=== PATIENT | male | born 1945 | race Caucasian/White ===

== ENCOUNTER 2024-09-07 14:12 | Outpatient (CLI) | payer MEDICARE, SELFPAY ==
--- NOTE | ~2024-09-07 | MR_ITS ---
EXAMINATION: MR elbow LT wo con DATE: 09/07/2024 14:45 INDICATION: Left elbow pain TECHNIQUE: Magnetic resonance imaging (MRI) of the left elbow was performed without intravenous contr ast. Sequences included coronal, axial, and sagittal PD-weighted FS FSE and coronal, axial, and sagit angie PD-weighted FSE. COMPARISON: None FINDINGS: Osseous/other: Normal alignment. Normal marrow signal with no marrow edema, fracture, osteochondral lesion or abnor mal marrow replacing process. Mild osteoarthritis with mild with nonuniform partial-thickness cartila ge loss at the radiocapitellar articulation of the left elbow. Tendons: Triceps, biceps brachii and brachialis tendons are normal. Common flexor tendon wad is normal. Mild tendinopathy without tear at the lateral epicondylar origin of the common extensor tendon wad. Ligaments: The medial and lateral collateral ligament complexes are normal. Cubital tunnel: Cubital tunnel is unremarkable with normal signal and caliber of the ulnar nerve. Fluid: Physiologic amount of fluid the elbow joint. IMPRESSION: 1. Mild osteoarthritis at the left elbow. 2. Mild tendinopathy without discrete tear at the lateral epicondylar origin of the common extensor t endon wad. Reviewed, dictated and finalized at location A. [facility] IMPRESSION: 1. Mild osteoarthritis at the left elbow. 2. Mild tendinopathy without discrete tear at the lateral epicondylar origin of the common extensor tendon wad.
== END 2024-09-07 14:13 | disposition home or self-care (01) ==
PROVIDERS: PCP Internal Medicine; Visit Provider Nurse Practitioner Family
DX: M19.022 Primary osteoarthritis, left elbow (principal)
CPT/HCPCS: 73221

== ENCOUNTER 2025-05-12 09:49 | Outpatient (CLI) | payer MEDICARE, SELFPAY ==
--- NOTE | ~2025-05-12 | XR_ITS ---
EXAMINATION: XR ankle RT min 3V, 05/12/2025 10:02 CDT HISTORY: pain in rt ankle COMPARISON: No comparisons available. Findings: No acute fracture or malalignment. No significant degenerative changes. Soft tissues unremarkable. Impression: No acute fracture or malalignment. Reviewed, dictated and finalized at location P. Impression: No acute fracture or malalignment.
== END 2025-05-12 09:50 | disposition home or self-care (01) ==
PROVIDERS: PCP Internal Medicine; Visit Provider Internal Medicine
DX: M25.571 Pain in right ankle and joints of right foot (principal); G89.29 Other chronic pain
CPT/HCPCS: 73610

== ENCOUNTER 2025-06-16 13:27 | Outpatient (CLI) | payer MEDICARE, SELFPAY ==
--- NOTE | ~2025-06-16 | US_ITS ---
EXAM/PROCEDURE: US arterial ankle brachial ind HISTORY: chronic pain right ankle COMPARISON: None available. TECHNIQUE: ZOILA FINDINGS: Right and left brachial pressure readings are 146 and 160 Right and left posterior tibial pressure readings are 190 and 186 Right and left dorsalis pressure readings are 178 and 184 Right and left great toe pressure readings are 170 and 169 Right and left ABIs are 1.19 and 1.16 TBI's are 1.06 on both sides Plethysmography appears grossly normal. IMPRESSION: Both ABIs greater than 1.0. IMPRESSION: No acute findings. Reviewed, dictated and finalized at location A. GRADER IMPRESSION: Both ABIs greater than 1.0. IMPRESSION: No acute findings.
--- OUTSIDE RECORDS SUMMARY | 2025-06-16 14:06 | XMS_ITS | Data Portability ---
Author Organization [place] - [facility], [facility] Address [address] [facility] [address] [place] [address] Assessment Encounter Date Assessment Date Assessment LastModified by Organization Details LastModified Time 05/31/2025 05/31/2025 Patient presente d to office today for their Medicare Annual Wellness Visit. Education was provided on healthy nutrition, including a diet rich in fruits and vegetables, minimizing simple carbohydrates, salt, and saturated fats. Encouraged regular cardiovascular exercise such as walking at least 30 minutes daily, 5 times per week. Emphasized preventive health measures and educated pt on fall prevention and community-based lifestyle interventions to help reduce health risks and promote healthy living. [email or web address] Not available 05/31/2025 15:54:29 Plan of Treatment Reminders Order Date Submit Date Provider Last Modified By Organization Details Last Modified Time Details Appointments Follow Up 15 2025 09:15A M Pastor Rossi MD Not available Not available Not available Lab uric acid, serum or plasma 2024 025 TATE Choudhary, [address], [place], [address], 05/13/2025 12:08:17 PSA, total, serum or plasma 2024 025 ATTE Choudhary, [address], [place], [address], 05/13/2025 12:08:17 HbA1c (hemoglob in A1c), blood 2024 025 TATE Choudhary, [address], [place], [address], 05/13/2025 12:08:16 lipid panel, serum 2024 TATEDANIEL Ramos, [address], [place], [address], 05/13/2025 12:08:15 PTH (parathyr oid hormone), intact, serum or plasma 2024 TATE Choudhary, [address], [place], [address], 05/13/2025 12:08:18 microalbu min/creat inine, mass ratio, urine 2024 TATE Choudhary, [address], [place], [address], 05/13/2025 12:08:16 CBC w/ auto diff 2024 TATEDANIEL Ramos, [address], [place], [address], 05/13/2025 12:08:14 renal function panel, serum 2024 TATEDANIEL Ramos, [address], [place], [address], 05/13/2025 12:08:15 TSH, ultra-sen sitive, serum 2024 TATEDANIEL Ramos, [address], [place], [address], 05/13/2025 12:08:17 CMP, serum or plasma 2024 TATE Choudhary, [address], [place], [address], 05/13/2025 12:08:14 TSH, ultra-sen sitive, serum 2024 025 [facility], [address], [place], [address], 03/16/2025 04:03:56 HbA1c (hemoglob in A1c), blood 2024 025 TATE Choudhary, [address], [place], [address], 03/16/2025 04:03:56 CMP, serum or plasma 2024 025 TATEDANIEL Choudhary, [address], [place], [address], 03/16/2025 04:03:55 microalbu min/creat inine, mass ratio, urine 2024 025 TATE Choudhary, [address], [place], [address], 03/16/2025 04:03:56 PTH (parathyr oid hormone), intact, serum or plasma 2024 025 TATE Choudhary, [address], [place], [address], 03/16/2025 04:03:56 PSA, total, serum or plasma 2024 025 TATE Choudhary, [address], [place], [address], 03/16/2025 04:03:56 CMP, serum or plasma 2024 025 TATE Choudhary, [address], [place], [address], 03/16/2025 04:03:55 CBC w/ auto diff 2024 025 TATE Choudhary, [address], [place], [address], 03/16/2025 04:03:55 lipid panel, serum 2024 025 TATE Labmary kate, [address], [place], [address], 03/16/2025 04:03:55 urinalysi s, complete 2024 025 TATEDANIEL Choudhary, [address], [place], [address], 03/16/2025 04:03:55 lipid panel, serum 2024 025 TATE Labmary kate, [address], [place], [address], 03/16/2025 04:03:55 HbA1c (hemoglob in A1c), blood 2023 024 TATE Choudhary, [address], [place], [address], 08/31/2024 08:11:56 CMP, serum or plasma 2023 024 TATE Choudhary, [address], [place], [address], 08/31/2024 08:11:54 PSA, serum or plasma 2023 024 TATE Choudhary, [address], [place], [address], 08/31/2024 08:11:56 uric acid, serum or plasma 2023 024 TATE Choudhary, [address], [place], [address], 08/31/2024 08:11:57 CBC w/ auto diff 2023 024 TATE Choudhary, [address], [place], [address], 08/31/2024 08:11:53 microalbu min/creat inine, mass ratio, urine 2023 024 [facility], [address], [place], [address], 08/31/2024 08:11:55 TSH + free T4, serum 2023 024 [facility], [address], [place], [address], 08/31/2024 08:11:52 urinalysi s, complete 2023 024 [facility], [address], [place], [address], 08/31/2024 08:11:54 lipid panel, serum - fasting 2023 024 [facility], [address], [place], [address], 08/31/2024 08:11:55 Referral None recorded. Procedures None recorded. Surgeries None recorded. Imaging US, duplex, arterial, lower extremity , complete 2024 025 [facility] ([facility]), [address], [place], [address], 06/14/2025 04:02:55 XR, ankle, 3 or more view 2024 025 TATE Not available 05/25/2025 04:06:23 ankle brachial index 2024 025 [facility] ([facility]), [address], [place], [address], 05/18/2025 04:03:53 US, duplex, venous, lower extremity [address] (Cardiology [facility] Em[facility]), [address], [place], [address], 05/23/2025 12:50:06 Medication Orders Medrol (Migel) 4 mg tablets in a dose pack 2024 [facility] #[id number], [address], [place], [place], [id number], 05/31/2025 10:33:22 azithromy sandie 250 mg tablet 2024 [facility] #[id number], [address], [place], [place], [phone], 05/31/2025 10:33:23 albuterol sulfate HFA 90 mcg/actua tion aerosol inhaler 2024 [facility][id number], [address], [place], [place], [phone], 05/31/2025 10:33:22 Mucinex 1,200 mg tablet, extended release 2024 [facility] #[id number], [address], [place], [place], [phone], 06/14/2025 05:01:56 doxycycli ne hyclate 100 mg capsule 2024 [facility] #[id number], [address], [place], [place], [id number], 05/25/2025 05:01:31 fluticaso ne propionat e 50 mcg/actua tion nasal spray,ansley pension 2024 [facility] #[id number], [address], [place], [place], [phone], 05/11/2025 14:53:50 Patient TargetsNo targets recorded. Patient Instructions Encounter Date Encounter Id Patient Instructions Last Modified By Organization Details Last Modified Time 03/03/2024 [id number] When You Want to Lose Weight: Care Instructions [email or web address] Not available 03/03/2024 10:21:54 back care and preventing injuries: care instructions [email or web address] Not available 03/03/2024 10:21:54 getting back to normal after low back pain: care instructions [email or web address] Not available 03/03/2024 10:21:54 learning about relief for back pain [email or web address] Not available 03/03/2024 10:21:54 high cholesterol : care instructions [email or web address] Not available 03/03/2024 10:21:55 09/01/2024 [id number] When You Want to Lose Weight: Care Instructions [email or web address] Not available 09/01/2024 10:17:04 back care and preventing injuries: care instructions [email or web address] Not available 09/01/2024 10:17:04 getting back to normal after low back pain: care instructions [email or web address] Not available 09/01/2024 10:17:04 learning about relief for back pain [email or web address] Not available 09/01/2024 10:17:04 high cholesterol : care instructions Not available 09/01/2024 10:17:04 I spent a total of _32 minutes (excluding separately reportable procedure time ) in care of this patient. [email or web address] Not available 09/01/2024 10:12:48 03/09/2025 [id number] When You Want to Lose Weight: Care Instructions [email or web address] Not available 03/09/2025 10:51:49 back care and preventing injuries: care instructions [email or web address] Not available 03/09/2025 10:51:49 getting back to normal after low back pain: care instructions [email or web address] Not available 03/09/2025 10:51:48 learning about relief for back pain [email or web address] Not available 03/09/2025 10:51:48 high cholesterol : care instructions [email or web address] Not available 03/09/2025 10:51:48 I spent a total of __32____ minutes (excluding separately reportable procedure time ) in care of this patient. [email or web address] Not available 03/09/2025 18:24:43 05/11/2025 [id number] back care and preventing injuries: care instructions [email or web address] Not available 05/11/2025 14:53:41 getting back to normal after low back pain: care instructions [email or web address] Not available 05/11/2025 14:53:41 learning about relief for back pain [email or web address] Not available 05/11/2025 14:53:40 high cholesterol : care instructions [email or web address] Not available 05/11/2025 14:53:41 When You Want to Lose Weight: Care Instructions [email or web address] Not available 05/11/2025 14:53:41 I spent a total of _36 minutes (excluding separately reportable procedure time ) in care of this patient. [email or web address] Not available 05/11/2025 18:19:01 05/31/2025 [id number] Peripheral Arterial Disease (PAD): Care Instructions [email or web address] Not available 05/31/2025 10:33:15 (ZOILA) ankle brachial index* TATE Not available 06/07/2025 04:05:09 When You Want to Lose Weight: Care Instructions [email or web address] Not available 05/31/2025 10:33:15 advance care planning: care instructions [email or web address] Not available 05/31/2025 10:33:14 back care and preventing injuries: care instructions [email or web address] Not available 05/31/2025 10:33:15 getting back to normal after low back pain: care instructions [email or web address] Not available 05/31/2025 10:33:15 learning about relief for back pain [email or web address] Not available 05/31/2025 10:33:15 high cholesterol : care instructions [email or web address] Not available 05/31/2025 10:33:14 I spent a total of _35 minutes (excluding separately reportable procedure time ) in care of this patient. Not available 05/31/2025 10:30:20 Reason for Referral None Reported. Results Created Date Observation Date Name Description Value Unit Range Abnormal Flag Note LastModifiedBy Organization Detail LastModifiedTime 02/27/20 24 02/27/2024 BASIC METAB OLIC PANEL (8) interpretati on: COMMEN T GFR estim ate at the follo wing level for >or=3 month s is class ified as follo ws: GFR WITH KIDNE Y DAMAG E WITHO UT KIDNE Y DAMAG E >or=9 0 Stage 1 Kendra l 60-89 Stage 2 Decr eased GFR 30-59 Stage 3 Stage 3 15-29 Stage 4 Stage 4 <15 (or dialy sis) Stage 5 Stage 5 Estim ated GFR will over estim ate true GFR if serum creat inine is risin g as in acute renal failu re and will under estim ate true GFR if serum creat inine is decli dylon as in resol ving acute renal failu re. Addit ional infor guido mendenhall may be found at [email or web address] org. Not Available [facility] ([facility]) [address] [place], [address], 02/28/2024 08:11:25 02/27/20 24 02/28/2024 BASIC METAB OLIC PANEL (8) glucose 135 mg/dL 70-99 above high normal Not Available [facility] ([facility]) [address] [place], [address], 02/28/2024 08:11:25 02/27/20 24 02/28/2024 BASIC METAB OLIC PANEL (8) BUN 16 mg/dL 8-27 normal Not Available [facility] ([facility]) [address] [place], [address], 02/28/2024 08:11:25 02/27/20 24 02/28/2024 BASIC METAB OLIC PANEL (8) creatinine 1.77 mg/dL 0.76-1 .27 above high normal Not Available [facility] ([facility]) [address] [place], [address], 02/28/2024 08:11:25 02/27/20 24 02/28/2024 BASIC METAB OLIC PANEL (8) eGFR 39 mL/mi n/1.7 3 >59 below low normal Not Available [facility] ([facility]) [address] [place], [address], 02/28/2024 08:11:25 02/27/20 24 02/28/2024 BASIC METAB OLIC PANEL (8) BUN/creatini ne ratio 9 10-24 below low normal Not Available [facility] ([facility]) [address] [place], [address], 02/28/2024 08:11:25 02/27/20 24 02/28/2024 BASIC METAB OLIC PANEL (8) sodium 144 mmol/ L 134-14 4 normal Not Available [facility] ([facility]) [address] [place], [address], 02/28/2024 08:11:25 02/27/20 24 02/28/2024 BASIC METAB OLIC PANEL (8) potassium 4.3 mmol/ L 3.5-5. 2 normal Not Available [facility] ([facility]) [address] [place], [address], 02/28/2024 08:11:25 02/27/20 24 02/28/2024 BASIC METAB OLIC PANEL (8) chloride 107 mmol/ L 96-106 above high normal Not Available [facility] ([facility]) [address] [place], [address], 02/28/2024 08:11:25 02/27/20 24 02/28/2024 BASIC METAB OLIC PANEL (8) carbon dioxide, total 23 mmol/ L 20-29 normal Not Available [facility] ([facility]) [address] [place], [address], 02/28/2024 08:11:25 02/27/20 24 02/28/2024 BASIC METAB OLIC PANEL (8) calcium 9.1 mg/dL 8.6-10 .2 normal Not Available [facility] ([facility]) [address] [place], [address], 02/28/2024 08:11:25 08/30/19 25 08/31/2024 TSH+F REE T4 TSH 2.610 uIU/m L 0.450- 4.500 normal Not Available [facility] ([facility]) [address] [place], [address], 08/31/2024 08:11:52 08/30/1908/31/2024 TSH+F REE T4 T4,free(dire ct) 1.08 NG/dL 0.82-1 .77 normal Not Available [facility] ([facility]) [address] [place], [address], 08/31/2024 08:11:52 08/30/1908/31/2024 CBC WITH DIFFE RENTI AL/PL ATELE T WBC 7.9 x10e3 /uL 3.4-10 .8 normal Not Available [facility] ([facility]) [address] [place], [address], 08/31/2024 08:11:53 08/30/1908/31/2024 CBC WITH DIFFE RENTI AL/PL ATELE T RBC 5.19 x10e6 /uL 4.14-5 .80 normal Not Available [facility] ([facility]) [address] [place], [address], 08/31/2024 08:11:53 08/30/1908/31/2024 CBC WITH DIFFE RENTI AL/PL ATELE T hemoglobin 15.8 g/dL 13.0-1 7.7 normal Not Available [facility] ([facility]) [address] [place], [address], 08/31/2024 08:11:53 08/30/1908/31/2024 CBC WITH DIFFE RENTI AL/PL ATELE T hematocrit 46.9 % 37.5-5 1.0 normal Not Available [facility] ([facility]) [address] [place], [address], 08/31/2024 08:11:53 08/30/1908/31/2024 CBC WITH DIFFE RENTI AL/PL ATELE T MCV 90 fL 79-97 normal Not Available [facility] ([facility]) [address] [place], [address], 08/31/2024 08:11:53 08/30/19 25 08/31/2024 CBC WITH DIFFE RENTI AL/PL ATELE T MCH 30.4 pg 26.6-3 3.0 normal Not Available [facility] ([facility]) [address] [place], [address], 08/31/2024 08:11:53 08/30/19 25 08/31/2024 CBC WITH DIFFE RENTI AL/PL ATELE T MCHC 33.7 g/dL 31.5-3 5.7 normal Not Available [facility] ([facility]) [address] [place], [address], 08/31/2024 08:11:53 08/30/19 25 08/31/2024 CBC WITH DIFFE RENTI AL/PL ATELE T RDW 12.8 % 11.6-1 5.4 Not Available [facility] ([facility]) [address] [place], [address], 08/31/2024 08:11:53 08/30/19 25 08/31/2024 CBC WITH DIFFE RENTI AL/PL ATELE T platelets 188 x10e3 /uL 150-45 0 normal Not Available [facility] ([facility]) [address] [place], [address], 08/31/2024 08:11:53 08/30/19 25 08/31/2024 CBC WITH DIFFE RENTI AL/PL ATELE T neutrophils 66 % not estab. normal Not Available [facility] ([facility]) [address] [place], [address], 08/31/2024 08:11:53 08/30/19 25 08/31/2024 CBC WITH DIFFE RENTI AL/PL ATELE T lymphs 24 % not estab. normal Not Available [facility] ([facility]) [address] [facility], [place], [address], 08/31/2024 08:11:53 08/30/19 25 08/31/2024 CBC WITH DIFFE RENTI AL/PL ATELE T monocytes 6 % not estab. normal Not Available [facility] ([facility]) [address] [facility], [place], [address], 08/31/2024 08:11:53 08/30/19 25 08/31/2024 CBC WITH DIFFE RENTI AL/PL ATELE T eos 3 % not estab. normal Not Available [facility] ([facility]) [address] [facility], [place], [address], 08/31/2024 08:11:53 08/30/19 25 08/31/2024 CBC WITH DIFFE RENTI AL/PL ATELE T basos 1 % not estab. normal Not Available [facility] ([facility]) [address] [facility], [place], [address], 08/31/2024 08:11:53 08/30/19 25 08/31/2024 CBC WITH DIFFE RENTI AL/PL ATELE T immature cells TURBINE INSPECTOR Not Available [facility] ([facility]) [address] [facility], [place], [address], 08/31/2024 08:11:53 08/30/19 25 08/31/2024 CBC WITH DIFFE RENTI AL/PL ATELE T neutrophils (absolute) 5.3 x10e3 /uL 1.4-7. 0 normal Not Available [facility] ([facility]) [address] [facility], [place], [address], 08/31/2024 08:11:53 08/30/19 25 08/31/2024 CBC WITH DIFFE RENTI AL/PL ATELE T lymphs (absolute) 1.9 x10e3 /uL 0.7-3. 1 normal Not Available [facility] ([facility]) [address] [facility], [place], [address], 08/31/2024 08:11:53 08/30/19 25 08/31/2024 CBC WITH DIFFE RENTI AL/PL ATELE T monocytes(ab solute) 0.4 x10e3 /uL 0.1-0. 9 normal Not Available [facility] ([facility]) [address] [facility], [place], [address], 08/31/2024 08:11:53 08/30/19 25 08/31/2024 CBC WITH DIFFE RENTI AL/PL ATELE T eos (absolute) 0.2 x10e3 /uL 0.0-0. 4 normal Not Available [facility] ([facility]) [address] [facility], [place], [address], 08/31/2024 08:11:53 08/30/19 25 08/31/2024 CBC WITH DIFFE RENTI AL/PL ATELE T baso (absolute) 0.1 x10e3 /uL 0.0-0. 2 normal Not Available [facility] ([facility]) [address] [facility], [place], [address], 08/31/2024 08:11:53 08/30/19 25 08/31/2024 CBC WITH DIFFE RENTI AL/PL ATELE T immature granulocytes 0 % not estab. Not Available [facility] ([facility]) [address] [place], [address], 08/31/2024 08:11:53 08/30/19 25 08/31/2024 CBC WITH DIFFE RENTI AL/PL ATELE T immature grans (abs) 0.0 x10e3 /uL 0.0-0. 1 Not Available [facility] ([facility]) [address] [facility], [place], [address], 08/31/2024 08:11:53 08/30/19 25 08/31/2024 CBC WITH DIFFE RENTI AL/PL ATELE T NRBC TURBINE INSPECTOR Not Available [facility] ([facility]) [address] [place], [address], 08/31/2024 08:11:53 08/30/19 25 08/31/2024 CBC WITH DIFFE RENTI AL/PL ATELE T hematology comments: TURBINE INSPECTOR Not Available [facility] ([facility]) [address] [facility] [place], [address], 08/31/2024 08:11:53 08/30/19 25 08/31/2024 COMP. METAB OLIC PANEL (14) glucose 114 mg/dL 70-99 above high normal Not Available [facility] ([facility]) [address] [place], [address], 08/31/2024 08:11:54 08/30/19 25 08/31/2024 COMP. METAB OLIC PANEL (14) BUN 17 mg/dL 8-27 normal Not Available [facility] ([facility]) [address] [place], [address], 08/31/2024 08:11:54 08/30/19 25 08/31/2024 COMP. METAB OLIC PANEL (14) creatinine 1.75 mg/dL 0.76-1 .27 above high normal Not Available [facility] ([facility]) [address] [place], [address], 08/31/2024 08:11:54 08/30/19 25 08/31/2024 COMP. METAB OLIC PANEL (14) eGFR 39 mL/mi n/1.7 3 >59 below low normal Not Available [facility] ([facility]) [address] [place], [address], 08/31/2024 08:11:54 08/30/19 25 08/31/2024 COMP. METAB OLIC PANEL (14) BUN/creatini ne ratio 10 10-24 normal Not Available [facility] ([facility]) [address] [place] [place], [address], 08/31/2024 08:11:54 08/30/19 25 08/31/2024 COMP. METAB OLIC PANEL (14) sodium 145 mmol/ L 134-14 4 above high normal Not Available [facility] ([facility]) [address] [place], [address], 08/31/2024 08:11:54 08/30/19 25 08/31/2024 COMP. METAB OLIC PANEL (14) potassium 4.0 mmol/ L 3.5-5. 2 normal Not Available [facility] ([facility]) [address] [place], [address], 08/31/2024 08:11:54 08/30/19 25 08/31/2024 COMP. METAB OLIC PANEL (14) chloride 104 mmol/ L 96-106 normal Not Available [facility] ([facility]) [address] [place], [address], 08/31/2024 08:11:54 08/30/19 25 08/31/2024 COMP. METAB OLIC PANEL (14) carbon dioxide, total 26 mmol/ L 20-29 normal Not Available [facility] ([facility]) [address] [place], [address], 08/31/2024 08:11:54 08/30/19 25 08/31/2024 COMP. METAB OLIC PANEL (14) calcium 9.5 mg/dL 8.6-10 .2 normal Not Available [facility] ([facility]) [address] [place] [place], [address], 08/31/2024 08:11:54 08/30/19 25 08/31/2024 COMP. METAB OLIC PANEL (14) protein, total 7.0 g/dL 6.0-8. 5 normal Not Available [facility] ([facility]) [address] [place], [address], 08/31/2024 08:11:54 08/30/19 25 08/31/2024 COMP. METAB OLIC PANEL (14) albumin 4.4 g/dL 3.8-4. 8 normal Not Available [facility] ([facility]) [address] [place], [address], 08/31/2024 08:11:54 08/30/19 25 08/31/2024 COMP. METAB OLIC PANEL (14) globulin, total 2.6 g/dL 1.5-4. 5 Not Available [facility] ([facility]) [address] [place], [address], 08/31/2024 08:11:54 08/30/19 25 08/31/2024 COMP. METAB OLIC PANEL (14) bilirubin, total 0.6 mg/dL 0.0-1. 2 normal Not Available [facility] ([facility]) [address] [place], [address], 08/31/2024 08:11:54 08/30/19 25 08/31/2024 COMP. METAB OLIC PANEL (14) alkaline phosphatase 90 IU/L 44-121 normal Not Available [facility] ([facility]) [address] [place], [address], 08/31/2024 08:11:54 08/30/19 25 08/31/2024 COMP. METAB OLIC PANEL (14) AST (SGOT) 19 IU/L 0-40 normal Not Available [facility] ([facility]) [address] [place], [address], 08/31/2024 08:11:54 08/30/19 25 08/31/2024 COMP. METAB OLIC PANEL (14) ALT (SGPT) 20 IU/L 0-44 normal Not Available [facility] ([facility]) [address] [place], [address], 08/31/2024 08:11:54 08/30/19 25 08/30/2024 URINA LYSIS , COMPL ETE specific gravity 1.018 1.005- 1.030 normal Not Available [facility] ([facility]) [address] [place], [address], 08/31/2024 08:11:54 08/30/19 25 08/30/2024 URINA LYSIS , COMPL ETE pH 6.5 5.0-7. 5 normal Not Available [facility] ([facility]) [address] [place], [address], 08/31/2024 08:11:54 08/30/1908/30/2024 URINA LYSIS , COMPL ETE urine-color YELLOW yellow Not Available [facility] ([facility]) [address] [facility], [place], [address], 08/31/2024 08:11:54 08/30/19 25 08/30/2024 URINA LYSIS , COMPL ETE appearance CLEAR clear Not Available [facility] ([facility]) [address] [place], [address], 08/31/2024 08:11:54 08/30/19 25 08/30/2024 URINA LYSIS , COMPL ETE WBC esterase NEGATI VE negati ve Not Available [facility] ([facility]) [address] [place], [address], 08/31/2024 08:11:54 08/30/1908/30/2024 URINA LYSIS , COMPL ETE protein TRACE negati ve/tra ce Not Available [facility] ([facility]) [address] [place], [address], 08/31/2024 08:11:54 08/30/1908/30/2024 URINA LYSIS , COMPL ETE glucose NEGATI VE negati ve Not Available [facility] ([facility]) [address] [place], [address], 08/31/2024 08:11:54 08/30/19 25 08/30/2024 URINA LYSIS , COMPL ETE ketones NEGATI VE negati ve Not Available [facility] ([facility]) [address] [place], [address], 08/31/2024 08:11:54 08/30/19 25 08/30/2024 URINA LYSIS , COMPL ETE occult blood NEGATI VE negati ve Not Available [facility] ([facility]) [address] [place], [address], 08/31/2024 08:11:54 08/30/19 25 08/30/2024 URINA LYSIS , COMPL ETE bilirubin NEGATI VE negati ve Not Available [facility] ([facility]) [address] [place], [address], 08/31/2024 08:11:54 08/30/19 25 08/30/2024 URINA LYSIS , COMPL ETE urobilinogen ,semi-qn 0.2 mg/dL 0.2-1. 0 normal Not Available [facility] ([facility]) [address] [place], [address], 08/31/2024 08:11:54 08/30/19 25 08/30/2024 URINA LYSIS , COMPL ETE nitrite, urine NEGATI VE negati ve Not Available [facility] ([facility]) [address] [place], [address], 08/31/2024 08:11:54 08/30/19 25 08/30/2024 URINA LYSIS , COMPL ETE microscopic examination COMMEN T Micro scopi c follo ws if indic ated. Not Available [facility] ([facility]) [address] [place], [address], 08/31/2024 08:11:54 08/30/19 25 08/30/2024 URINA LYSIS , COMPL ETE microscopic examination SEE BELOW: Micro scopi c was indic ated and was perfo rmed. Not Available [facility] ([facility]) [address] [facility], [place], [address], 08/31/2024 08:11:54 08/30/19 25 08/31/2024 URINA LYSIS , COMPL ETE WBC NONE SEEN /hpf 0 - 5 Not Available [facility] ([facility]) [address] [facility], [place], [address], 08/31/2024 08:11:54 08/30/19 25 08/31/2024 URINA LYSIS , COMPL ETE RBC NONE SEEN /hpf 0 - 2 Not Available [facility] ([facility]) [address] [facility], [place], [address], 08/31/2024 08:11:54 08/30/19 25 08/31/2024 URINA LYSIS , COMPL ETE epithelial cells (non renal) 0-10 /hpf 0 - 10 Not Available [facility] ([facility]) [address] [facility], [place], [address], 08/31/2024 08:11:54 08/30/19 25 08/31/2024 URINA LYSIS , COMPL ETE epithelial cells (renal) TURBINE INSPECTOR Not Available [facility] ([facility]) [address] [facility], [place], [address], 08/31/2024 08:11:54 08/30/19 25 08/31/2024 URINA LYSIS , COMPL ETE casts NONE SEEN /lpf none seen Not Available [facility] ([facility]) [address] [facility], [place], [address], 08/31/2024 08:11:54 08/30/19 25 08/31/2024 URINA LYSIS , COMPL ETE cast type TURBINE INSPECTOR Not Available [facility] ([facility]) [address] [facility], [place], [address], 08/31/2024 08:11:54 08/30/19 25 08/31/2024 URINA LYSIS , COMPL ETE crystals PRESEN T n/a abnormal Not Available [facility] ([facility]) [address] [facility], [place], [address], 08/31/2024 08:11:54 08/30/19 25 08/31/2024 URINA LYSIS , COMPL ETE crystal type CALCIU M OXALAT E n/a Not Available [facility] ([facility]) [address] [facility], [place], [address], 08/31/2024 08:11:54 08/30/1908/31/2024 URINA LYSIS , COMPL ETE mucus threads PRESEN T not estab. Not Available [facility] ([facility]) [address] [facility], [place], [address], 08/31/2024 08:11:54 08/30/1908/31/2024 URINA LYSIS , COMPL ETE bacteria NONE SEEN none seen/f ew Not Available [facility] ([facility]) [address] [facility], [place], [address], 08/31/2024 08:11:54 08/30/1908/31/2024 URINA LYSIS , COMPL ETE yeast TURBINE INSPECTOR Not Available [facility] ([facility]) [address] [facility], [place], [address], 08/31/2024 08:11:54 08/30/1908/31/2024 URINA LYSIS , COMPL ETE trichomonas TURBINE INSPECTOR Not Available [facility] ([facility]) [address] [facility], [place], [address], 08/31/2024 08:11:54 08/30/1908/31/2024 URINA LYSIS , COMPL ETE comment TURBINE INSPECTOR Not Available [facility] ([facility]) [address] [facility], [place], [address], 08/31/2024 08:11:54 08/30/19 25 08/31/2024 LIPID PANEL cholesterol, total 187 mg/dL 100-19 9 normal Not Available [facility] ([facility]) [address] [place], [address], 08/31/2024 08:11:55 08/30/19 25 08/31/2024 LIPID PANEL triglyceride s 154 mg/dL 0-149 above high normal Not Available [facility] ([facility]) [address] [place], [address], 08/31/2024 08:11:55 08/30/19 25 08/31/2024 LIPID PANEL HDL cholesterol 47 mg/dL >39 normal Not Available [facility] ([facility]) [address] [place], [address], 08/31/2024 08:11:55 08/30/19 25 08/31/2024 LIPID PANEL VLDL cholesterol josiah 27 mg/dL 5-40 Not Available [facility] ([facility]) [address] [place], [address], 08/31/2024 08:11:55 08/30/19 25 08/31/2024 LIPID PANEL LDL chol calc ([facility]) 113 mg/dL 0-99 above high normal Not Available [facility] ([facility]) [address] [place], [address], 08/31/2024 08:11:55 08/30/19 25 08/31/2024 LIPID PANEL LDL calc comment: TURBINE INSPECTOR Not Available [facility] ([facility]) [address] [place], [address], 08/31/2024 08:11:55 08/30/19 25 08/31/2024 ALBUM IN/CR EAT RATIO , RANDO M UR creatinine, urine 147.4 mg/dL not estab. normal Not Available [facility] ([facility]) [address] [place], [address], 08/31/2024 08:11:55 08/30/19 25 08/31/2024 ALBUM IN/CR EAT RATIO , RANDO M UR albumin, urine 23.9 ug/mL not estab. Not Available [facility] ([facility]) [address] [facility], [place], [address], 08/31/2024 08:11:55 08/30/19 25 08/31/2024 ALBUM IN/CR EAT RATIO , RANDO M UR alb/creat ratio 16 mg/g_ creat 0-29 Kendra l: 0 - 29 Moder ately incre ased: 30 - 300 Sever katheryn incre ased: >300 Not Available [facility] ([facility]) [address] [facility], [place], [address], 08/31/2024 08:11:55 08/30/19 25 08/30/2024 PSA TOTAL (REFL EX TO FREE) reflex criteria COMMEN T The perce nt free PSA is perfo rmed on a refle x basis only when the total PSA is betwe en 4.0 and 10.0 ng/mL . Not Available [facility] ([facility]) [address] [facility], [place], [address], 08/31/2024 08:11:56 08/30/1908/31/2024 PSA TOTAL (REFL EX TO FREE) prostate specific Ag 1.2 NG/mL 0.0-4. 0 normal Arlyn ECLIA metho dolog y. Accor ding to the Ameri can Urolo gical Assoc iatio n, Serum PSA shoul d decre ase and remai n at undet ectab le level s after radic al prost atect bradley. The AUA defin es bioch emica l recur rence as an initi al PSA value 0.2 ng/mL or great er follo wed by a subse quent confi rmato ry PSA value 0.2 ng/mL or great er. Value s obtai jay with diffe rent assay metho ds or kits canno t be used inter bowles eably . Resul ts canno t be inter prete d as absol mentasta evide nce of the prese nce or absen ce of j[facility] se. Not Available [facility] ([facility]) [address] [place], [address], 08/31/2024 08:11:56 08/30/19 25 08/31/2024 HEMOG LOBIN A1C hemoglobin A1C 5.8 % 4.8-5. 6 above high normal Predi abete s: 5.7 - 6.4 Diabe ivette: >6.4 Glyce anel contr ol for adult s with diabe ivette: <7.0 Not Available [facility] ([facility]) [address] [place], [address], 08/31/2024 08:11:56 08/30/1908/31/2024 URIC ACID uric acid 5.5 mg/dL 3.8-8. 4 normal Thera peuti c targe t for gout patie nts: <6.0 Not Available [facility] ([facility]) [address] [facility], [place], [address], 08/31/2024 08:11:57 05/12/20 25 05/13/2025 CMP14 +EGFR glucose 99 mg/dL 70-99 normal Not Available [facility] ([facility]) [address] [place], [address], 05/13/2025 12:08:13 05/12/2005/13/2025 CMP14 +EGFR BUN 14 mg/dL 8-27 normal Not Available [facility] ([facility]) [address] [place], [address], 05/13/2025 12:08:13 05/12/2005/13/2025 CMP14 +EGFR creatinine 1.47 mg/dL 0.76-1 .27 above high normal Not Available [facility] ([facility]) [address] [place], [address], 05/13/2025 12:08:13 05/12/2005/13/2025 CMP14 +EGFR eGFR 48 mL/mi n/1.7 3 >59 below low normal Not Available [facility] ([facility]) [address] [place], [address], 05/13/2025 12:08:13 05/12/2005/13/2025 CMP14 +EGFR BUN/creatini ne ratio 10 10-24 normal Not Available [facility] ([facility]) [address] [place], [address], 05/13/2025 12:08:13 05/12/2005/13/2025 CMP14 +EGFR sodium 143 mmol/ L 134-14 4 normal Not Available [facility] ([facility]) [address] [place], [address], 05/13/2025 12:08:13 05/12/2005/13/2025 CMP14 +EGFR potassium 4.0 mmol/ L 3.5-5. 2 normal Not Available [facility] ([facility]) [address] [place], [address], 05/13/2025 12:08:13 05/12/2005/13/2025 CMP14 +EGFR chloride 104 mmol/ L 96-106 normal Not Available [facility] ([facility]) [address] [place], [address], 05/13/2025 12:08:13 05/12/2005/13/2025 CMP14 +EGFR carbon dioxide, total 25 mmol/ L 20-29 normal Not Available [facility] ([facility]) [address] [place], [address], 05/13/2025 12:08:13 05/12/2005/13/2025 CMP14 +EGFR calcium 9.2 mg/dL 8.6-10 .2 normal Not Available [facility] ([facility]) [address] [place], [address], 05/13/2025 12:08:13 05/12/2005/13/2025 CMP14 +EGFR protein, total 7.0 g/dL 6.0-8. 5 normal Not Available [facility] ([facility]) [address] [facility], [place], [address], 05/13/2025 12:08:13 05/12/2005/13/2025 CMP14 +EGFR albumin 4.5 g/dL 3.8-4. 8 normal Not Available [facility] ([facility]) [address] [facility], [place], [address], 05/13/2025 12:08:13 05/12/2005/13/2025 CMP14 +EGFR globulin, total 2.5 g/dL 1.5-4. 5 Not Available [facility] ([facility]) [address] [facility], [place], [address], 05/13/2025 12:08:13 05/12/2005/13/2025 CMP14 +EGFR bilirubin, total 0.7 mg/dL 0.0-1. 2 normal Not Available [facility] ([facility]) [address] [facility], [place], [address], 05/13/2025 12:08:13 05/12/2005/13/2025 CMP14 +EGFR alkaline phosphatase 84 IU/L 47-123 normal Not Available [facility] ([facility]) [address] [facility], [place], [address], 05/13/2025 12:08:13 05/12/2005/13/2025 CMP14 +EGFR AST (SGOT) 19 IU/L 0-40 normal Not Available [facility] ([facility]) [address] [place], [address], 05/13/2025 12:08:13 05/12/2005/13/2025 CMP14 +EGFR ALT (SGPT) 18 IU/L 0-44 normal Not Available [facility] ([facility]) [address] [facility], [place], [address], 05/13/2025 12:08:13 05/12/2005/13/2025 CBC WITH DIFFE RENTI AL/PL ATELE T WBC 10.2 x10e3 /uL 3.4-10 .8 normal Not Available [facility] ([facility]) [address] [facility], [place], [address], 05/13/2025 12:08:14 05/12/2005/13/2025 CBC WITH DIFFE RENTI AL/PL ATELE T RBC 5.17 x10e6 /uL 4.14-5 .80 normal Not Available [facility] ([facility]) [address] [facility], [place], [address], 05/13/2025 12:08:14 05/12/2005/13/2025 CBC WITH DIFFE RENTI AL/PL ATELE T hemoglobin 15.8 g/dL 13.0-1 7.7 normal Not Available [facility] ([facility]) [address] [place], [address], 05/13/2025 12:08:14 05/12/2005/13/2025 CBC WITH DIFFE RENTI AL/PL ATELE T hematocrit 47.4 % 37.5-5 1.0 normal Not Available [facility] ([facility]) [address] [place], [address], 05/13/2025 12:08:14 05/12/2005/13/2025 CBC WITH DIFFE RENTI AL/PL ATELE T MCV 92 fL 79-97 normal Not Available [facility] ([facility]) [address] [place], [address], 05/13/2025 12:08:14 05/12/20 25 05/13/2025 CBC WITH DIFFE RENTI AL/PL ATELE T MCH 30.6 pg 26.6-3 3.0 normal Not Available [facility] ([facility]) [address] [place], [address], 05/13/2025 12:08:14 05/12/20 25 05/13/2025 CBC WITH DIFFE RENTI AL/PL ATELE T MCHC 33.3 g/dL 31.5-3 5.7 normal Not Available [facility] ([facility]) [address] [facility], [place], [address], 05/13/2025 12:08:14 05/12/20 25 05/13/2025 CBC WITH DIFFE RENTI AL/PL ATELE T RDW 13.1 % 11.6-1 5.4 Not Available [facility] ([facility]) [address] [place], [address], 05/13/2025 12:08:14 05/12/20 25 05/13/2025 CBC WITH DIFFE RENTI AL/PL ATELE T platelets 186 x10e3 /uL 150-45 0 normal Not Available [facility] ([facility]) [address] [place], [address], 05/13/2025 12:08:14 05/12/20 25 05/13/2025 CBC WITH DIFFE RENTI AL/PL ATELE T neutrophils 73 % not estab. normal Not Available [facility] ([facility]) [address] [place], [address], 05/13/2025 12:08:14 05/12/20 25 05/13/2025 CBC WITH DIFFE RENTI AL/PL ATELE T lymphs 20 % not estab. normal Not Available [facility] ([facility]) [address] [place], [address], 05/13/2025 12:08:14 05/12/20 25 05/13/2025 CBC WITH DIFFE RENTI AL/PL ATELE T monocytes 4 % not estab. normal Not Available [facility] ([facility]) [address] [place], [address], 05/13/2025 12:08:14 05/12/20 25 05/13/2025 CBC WITH DIFFE RENTI AL/PL ATELE T eos 2 % not estab. normal Not Available [facility] ([facility]) [address] [place], [address], 05/13/2025 12:08:14 05/12/20 25 05/13/2025 CBC WITH DIFFE RENTI AL/PL ATELE T basos 1 % not estab. normal Not Available [facility] ([facility]) [address] [facility], [place], [address], 05/13/2025 12:08:14 05/12/20 25 05/13/2025 CBC WITH DIFFE RENTI AL/PL ATELE T immature cells TURBINE INSPECTOR Not Available [facility] ([facility]) [address] [place], [address], 05/13/2025 12:08:14 05/12/20 25 05/13/2025 CBC WITH DIFFE RENTI AL/PL ATELE T neutrophils (absolute) 7.4 x10e3 /uL 1.4-7. 0 above high normal Not Available [facility] ([facility]) [address] [place], [address], 05/13/2025 12:08:14 05/12/20 25 05/13/2025 CBC WITH DIFFE RENTI AL/PL ATELE T lymphs (absolute) 2.0 x10e3 /uL 0.7-3. 1 normal Not Available [facility] ([facility]) [address] [place], [address], 05/13/2025 12:08:14 05/12/20 25 05/13/2025 CBC WITH DIFFE RENTI AL/PL ATELE T monocytes(ab solute) 0.4 x10e3 /uL 0.1-0. 9 normal Not Available [facility] ([facility]) [address] [facility], [place], [address], 05/13/2025 12:08:14 05/12/2005/13/2025 CBC WITH DIFFE RENTI AL/PL ATELE T eos (absolute) 0.2 x10e3 /uL 0.0-0. 4 normal Not Available [facility] ([facility]) [address] [facility], [place], [address], 05/13/2025 12:08:14 05/12/2005/13/2025 CBC WITH DIFFE RENTI AL/PL ATELE T baso (absolute) 0.1 x10e3 /uL 0.0-0. 2 normal Not Available [facility] ([facility]) [address] [facility], [place], [address], 05/13/2025 12:08:14 05/12/2005/13/2025 CBC WITH DIFFE RENTI AL/PL ATELE T immature granulocytes 0 % not estab. Not Available [facility] ([facility]) [address] [facility], [place], [address], 05/13/2025 12:08:14 05/12/20 25 05/13/2025 CBC WITH DIFFE RENTI AL/PL ATELE T immature grans (abs) 0.0 x10e3 /uL 0.0-0. 1 Not Available [facility] ([facility]) [address] [facility], [place], [address], 05/13/2025 12:08:14 05/12/20 25 05/13/2025 CBC WITH DIFFE RENTI AL/PL ATELE T NRBC TURBINE INSPECTOR Not Available [facility] ([facility]) [address] [facility], [place], [address], 05/13/2025 12:08:14 05/12/20 25 05/13/2025 CBC WITH DIFFE RENTI AL/PL ATELE T hematology comments: TURBINE INSPECTOR Not Available [facility] ([facility]) [address] [facility], [place], [address], 05/13/2025 12:08:14 05/12/20 25 05/13/2025 RENAL PANEL (10) phosphorus 3.1 mg/dL 2.8-4. 1 normal Not Available [facility] ([facility]) [address] [place], [address], 05/13/2025 12:08:15 05/12/20 25 05/13/2025 LIPID PANEL cholesterol, total 181 mg/dL 100-19 9 normal Not Available [facility] ([facility]) [address] [place], [address], 05/13/2025 12:08:15 05/12/20 25 05/13/2025 LIPID PANEL triglyceride s 141 mg/dL 0-149 normal Not Available [facility] ([facility]) [address] [place], [address], 05/13/2025 12:08:15 05/12/20 25 05/13/2025 LIPID PANEL HDL cholesterol 42 mg/dL >39 normal Not Available [facility] ([facility]) [address] [facility], [place], [address], 05/13/2025 12:08:15 05/12/20 25 05/13/2025 LIPID PANEL VLDL cholesterol josiah 25 mg/dL 5-40 Not Available [facility] ([facility]) [address] [place], [address], 05/13/2025 12:08:15 05/12/20 25 05/13/2025 LIPID PANEL LDL chol calc ([facility]) 114 mg/dL 0-99 above high normal Not Available [facility] ([facility]) [address] [place], [address], 05/13/2025 12:08:15 05/12/20 25 05/13/2025 LIPID PANEL LDL calc comment: TURBINE INSPECTOR Not Available [facility] ([facility]) [address] [place], [address], 05/13/2025 12:08:15 05/12/20 25 05/13/2025 ALBUM IN/CR EAT RATIO , RANDO M UR creatinine, urine 86.5 mg/dL not estab. normal Not Available [facility] ([facility]) [address] [place], [address], 05/13/2025 12:08:15 05/12/20 25 05/13/2025 ALBUM IN/CR EAT RATIO , RANDO M UR albumin, urine 40.0 ug/mL not estab. Not Available [facility] ([facility]) [address] [place], [address], 05/13/2025 12:08:15 05/12/20 25 05/13/2025 ALBUM IN/CR EAT RATIO , RANDO M UR alb/creat ratio 46 mg/g_ creat 0-29 above high normal Kendra l: 0 - 29 Moder ately incre ased: 30 - 300 Sever katheryn incre ased: >300 Not Available [facility] ([facility]) [address] [place], [address], 05/13/2025 12:08:15 05/12/20 25 05/13/2025 HEMOG LOBIN A1C hemoglobin A1C 5.6 % 4.8-5. 6 normal Predi abete s: 5.7 - 6.4 Diabe ivette: >6.4 Glyce anel contr ol for adult s with diabe ivette: <7.0 Not Available [facility] ([facility]) [address] [place], [address], 05/13/2025 12:08:16 05/12/20 25 05/13/2025 TSH TSH 1.590 uIU/m L 0.450- 4.500 normal Not Available [facility] ([facility]) [address] [place], [address], 05/13/2025 12:08:16 05/12/20 25 05/13/2025 PROST ATE-S PECIF IC AG prostate specific Ag 1.4 NG/mL 0.0-4. 0 normal Arlyn ECLIA metho dolog y. Accor ding to the Ameri can Urolo gical Assoc iatio n, Serum PSA shoul d decre ase and remai n at undet ectab le level s after radic al prost atect bradley. The AUA defin es bioch emica l recur rence as an initi al PSA value 0.2 ng/mL or great er follo wed by a subse quent confi rmato ry PSA value 0.2 ng/mL or great er. Value s obtai jay with diffe rent assay metho ds or kits canno t be used inter bowles eably . Resul ts canno t be inter prete d as absol mentasta evide nce of the prese nce or absen [facility]. Not Available [facility] ([facility]) [address] [facility], [place], [address], 05/13/2025 12:08:17 05/12/2005/13/2025 URIC ACID uric acid 4.7 mg/dL 3.8-8. 4 normal Thera peuti c targe t for gout patie nts: <6.0 Not Available [facility] ([facility]) [address] [facility], [place], [address], 05/13/2025 12:08:17 05/12/20 25 05/13/2025 PTH, INTAC T PTH, intact 45 pg/mL 15-65 normal Not Available [facility] ([facility]) [address] [facility], [place], [address], 05/13/2025 12:08:18 Result Notes None recorded. Problems Name Problem SNOMED Code Status Onset Date Resolution Date Notes Provider Name and Address Organization Details Recorded Time Essential hypertensio n 22996576 Active 2023 Pastor Rossi MD [address] [facility] [address], [place], [address], [facility] 18:18:17 Benign prostatic hyperplasia without outflow obstruction 080390561 Active 2023 Pastor Rossi MD [address] [facility] [address], [place], [address], [facility] 18:18:17 Hyperlipide enoc 26889294 Active 2023 Pastor Rossi MD [address] [facility] [address], [place], [address], [facility] 18:18:17 Obesity 794867685 Active 2023 Pastor Rossi MD [address] [facility] [address], [place], [address], [facility] 18:18:17 Chronic kidney disease 067365560 Active 2023 Pastor Rossi MD [address] [facility] [address], [place], [address], [facility] 18:18:17 Low back pain 279398733 Active 2023 Pastor Rossi MD [address] [facility] [address], [place], [address], [facility] 18:18:17 Pain of left elbow joint [id number] 9104 Active 2024 Pastor Rossi MD [address] [facility] [address], [place], [address], [facility] 10:15:47 Intermitten t vertigo 059545926 Active 2024 Pastor Rossi MD [address] [facility] [address], [place], [address], [facility] 10:43:23 Acute bacterial sinusitis 51085941 Active 2024 Pastor Rossi MD [address] [facility] [address], [place], [address], [facility] 5 14:45:00 Chronic ankle pain 8210399873318 9 Active 2024 Pastor Rossi MD [address] [facility] [address], [place], [address], [facility] 5 14:48:28 Prediabetes 856444528 Active 2024 Pastor Rossi MD [address] [facility] [address], [place], [address], [facility] 14:52:35 Acute bacterial bronchitis 519737398 Active 2024 Pastor Rossi MD [address] [facility] [address], [place], [address], [facility] 5 10:20:55 Peripheral vascular disease 107412159 Active 2024 Pastor Rossi MD [address] [facility] [address], [place], [address], [facility] 10:32:01 Problem Notes None recorded. Procedures Surgical History Date Name Laterality Status Provider Name and Address Organization Details Recorded Time 5 excision of skin cyst completed Pastor Rossi MD [address] [facility] [address], [place], [address], [facility] [facility] 09/01/2024 10:09:38 0 hernia repair completed Pastor Rossi MD [address], [place], [address], [facility] 08/26/2023 11:16:06 excision of basal cell carcinoma completed Pastor Rossi MD [address], [place], [address], [facility] 08/26/2023 11:16:56 Imaging Results None recorded. Procedure Notes None recorded. Medical Equipment None Reported. Allergies Allergen ID Allergen Name Allergen Category Reaction Reaction Severity Criticality Documentation Date Start Date Code Code System Note Provider Name and Address Organization Details Recorded Time 1441 Product containin g penicilli n (product) medicatio n vomiting Not available high 08/26/2023 [id number] 8001 SIM [facility] 4 10:41:33 Medications Name Sig Start Date Stop Date Status Note LastModified by Organization Details LastModified Time latanoprost 0.005 % eye drops INSTILL 1 DROP IN BOTH EYES EVERY DAY AT BEDTIME active Not Available Not Available No t Available doxycycline hyclate 100 mg capsule Take 1 capsule twice a day by oral route for 7 days. 05/25 completed Not Available Not Available Not Available carvedilol 12.5 mg tablet TAKE 1 TABLET BY MOUTH TWICE DAILY active Not Available Not Available No t Available azithromyci n 250 mg tablet TAKE 2 TABLETS (500 MG) BY ORAL ROUTE ONCE DAILY FOR 1 DAY THEN 1 TABLET (250 MG) BY ORAL ROUTE ONCE DAILY FOR 4 DAYS 2024 active Not Available Not Available Not Avai lable pravastatin 40 mg tablet TAKE 1 TABLET BY MOUTH EVERY DAY active Not Available Not Available No t Available Medrol (Migel) 4 mg tablets in a dose pack Take 1 dose pk every day by oral route. 2024 active Not Available Not Available Not Avai lable potassium chloride ER 10 mEq tablet,exte nded release TAKE 1 TABLET BY MOUTH EVERY DAY 03/03 completed Not Available Not Available Not Available amlodipine 5 mg tablet TAKE 1 TABLET BY MOUTH DAILY 09/01 completed Not Available Not Available Not Available amlodipine 10 mg tablet TAKE 1 TABLET BY MOUTH EVERY DAY active Not Available Not Available No t Available hydrochloro thiazide 25 mg tablet TAKE 1 TABLET BY MOUTH EVERY DAY prn 03/03 completed Not Available Not Available Not Available albuterol sulfate HFA 90 mcg/actuati on aerosol inhaler Inhale 2 puffs every 4 hours by inhalatio n route as needed. 2024 active Not Available Not Available Not Avai lable lisinopril 40 mg tablet TAKE 1 TABLET BY MOUTH EVERY DAY active Not Available Not Available No t Available fluticasone propionate 50 mcg/actuati on nasal spray,suspe nsion [place] 1 spray twice a day by intranasa l route. 2024 active Not Available Not Available Not Avai lable finasteride 5 mg tablet TAKE 1 TABLET BY MOUTH DAILY active Not Available Not Available No t Available azithromyci n 500 mg tablet TAKE 1 TABLET BY MOUTH EVERY DAY FOR 5 DAYS 08/26 completed Not Available Not Available Not Available hydrochloro thiazide 12.5 mg tablet TAKE 1 TABLET BY MOUTH EVERY MORNING 09/23 completed Not Available Not Available Not Available Mucinex 1,200 mg tablet, extended release Take 1 tablet twice a day by oral route for 7 days. 06/14 completed Not Available Not Available Not Available Vitals Date Recorded Body height Body temperature Body mass index (BMI) Body weight Heart rate Respiratory rate Oxygen saturation Oxygen saturation in Arterial blood by Pulse oximetry Systolic And Diastolic Provider Name and Address Organization Details Last Updated DateTime 5 175.26 cm 97.4 [degF] 31.3 kg/m2 14412.5 8 g 62 /min 18 /min 97 % 97 % 130/62 mm[Hg] [facility] 5 09:54:41 Date Recorded Body height Body temperature Body mass index (BMI) Body weight Heart rate Respiratory rate Oxygen saturation Oxygen saturation in Arterial blood by Pulse oximetry Systolic And Diastolic Provider Name and Address Organization Details Last Updated DateTime 4 175.26 cm 97.2 [degF] 30.3 kg/m2 06558.4 4 g 68 /min 18 /min 97 % 97 % 122/74 mm[Hg] [facility] 4 10:04:50 Date Recorded Body height Body temperature Body mass index (BMI) Body weight Heart rate Respiratory rate Oxygen saturation Oxygen saturation in Arterial blood by Pulse oximetry Systolic And Diastolic Provider Name and Address Organization Details Last Updated DateTime 5 175.26 cm 97.5 [degF] 29.7 kg/m2 20896.0 7 g 57 /min 18 /min 98 % 98 % 140/72 mm[Hg] [facility] 5 10:14:10 Date Recorded Body height Body temperature Body mass index (BMI) Body weight Heart rate Respiratory rate Oxygen saturation Oxygen saturation in Arterial blood by Pulse oximetry Systolic And Diastolic Provider Name and Address Organization Details Last Updated DateTime 175.26 cm 98.6 [degF] 30.4 kg/m2 44357.0 3 g 68 /min 18 /min 97 % 97 % 140/72 mm[Hg] [facility] 14:26:45 Date Recorded Oxygen saturation Oxygen saturation in Arterial blood by Pulse oximetry Provider Name and Address Organization Details Last Updated DateTime 05/31/2025 91 % 91 % Pastor Rossi MD [address] [facility] [address], [place], [address], [facility] 05/31/2025 10:22:37 Date Recorded Body height Body temperature Body mass index (BMI) Body weight Heart rate Respiratory rate Systolic And Diastolic Provider Name and Address Organization Details Last Updated DateTime 175.26 cm 97.3 [degF] 29.5 kg/m2 05720.4 7 g 75 /min 20 /min 130/70 mm[Hg] [facility] 10:11:49 Social History None recorded. Functional Status None recorded. Mental Status None recorded. Family History Nothing Reported Notes:half sister-heart dise ase,dementia half sister-dementia mother: cancer (liver and intestinal cancer?) father-arteriosclerosis of the brain, mother's parents: colon cancer 78 and 79 Medical History No medical history recorded. Immunizations Vaccine Type Date Status Note Provider Nam e and Address Organization Details Recorded Time tetanus toxoid, unspecified formulation 2 completed Alena [facility] 08/26/2023 10:43:49 influenza, unspecified formulation 3 completed Alena [facility] 08/26/2023 10:44:14 Influenza, high-dose, quadrivalent, PF 3 completed Alena Ecmaryt [facility] 09/23/2023 14:28:19 Influenza, high-dose, quadrivalent, PF 1 completed Alena [facility] 09/23/2023 14:28:19 Influenza, high-dose, quadrivalent, PF 0 completed [facility] 14:28:19 Influenza, high-dose, quadrivalent, PF 1 completed [facility] 09/23/2023 14:28:19 Influenza, adjuvanted, quadrivalent, PF 2 completed La[facility] 09/23/2023 14:28:19 COVID-19, mRNA, LNP-S, PF, 30 mcg/0.3 mL dose 1 completed [facility] 09/23/2023 14:28:19 COVID-19 vaccine, vector-nr, rS-Ad26, PF, 0.5 mL 1 completed [facility] 09/23/2023 14:28:19 COVID-19, mRNA, LNP-S, bivalent, PF, 30 mcg/0.3 mL dose 3 completed [facility] 09/23/2023 14:28:19 COVID-19, mRNA, LNP-S, bivalent, PF, 30 mcg/0.3 mL dose 2 completed Alena Eckart [facility] 09/23/2023 14:28:19 COVID-19, mRNA, LNP-S, PF, 50 mcg/0.5 mL 3 completed [facility] 09/23/2023 14:28:19 Influenza, high-dose, trivalent, PF 7 completed [facility] 09/23/2023 14:28:19 Influenza, high-dose, trivalent, PF 8 completed Alena [facility] 09/23/2023 14:28:19 Influenza, high-dose, trivalent, PF 9 completed [facility] 09/23/2023 14:28:19 Influenza, high-dose, trivalent, PF 6 completed [facility] 09/23/2023 14:28:19 Influenza, split virus, trivalent, preservative 4 completed [facility] 09/23/2023 14:28:19 Influenza, split virus, trivalent, preservative 3 completed [facility] 09/23/2023 14:28:19 Influenza, split virus, trivalent, preservative 4 completed [facility] 09/23/2023 14:28:19 Td (adult), 5 Lf tetanus toxoid, preservative free, adsorbed 6 completed Alena Eckart [facility] 09/23/2023 14:28:19 Influenza, split virus, quadrivalent, PF 5 completed [facility] 09/23/2023 14:28:19 Influenza, adjuvanted, trivalent, PF 4 completed [facility] 09/01/2024 09:54:51 RSV, recombinant, protein subunit RSVpreF, adjuvant reconstituted, 0.5 mL, PF 4 completed Alena Eckart [facility] 09/01/2024 09:54:51 COVID-19, mRNA, LNP-S, PF, zack-sucrose, 30 mcg/0.3 mL 4 completed [facility] 09/01/2024 09:54:51 COVID-19, mRNA, LNP-S, PF, zack-sucrose, 30 mcg/0.3 mL 5 completed Not Available [facility] 05/31/2025 10:03:32 Influenza, adjuvanted, trivalent, PF 5 completed Not Available [facility] 05/31/2025 10:03:32 Past Encounters Encounter ID Performer Location Encounter Start Date Encounter Closed Date Diagnosis/Indication Diagnosis SNOMED-CT Code Diagnosis ICD10 Code Diagnosis IMO Codes Diagnosis Note [id number] Pastor Rossi MD [facility] [address] [address] [place] [address] 08/26/2023 10:16:47 08/26/2023 11:43:17 Essential hypertension 76415126 I10 bp not optimalon amlod 5, lisinopril 40 bid, hctz 12.5 mgwill increase to 25 mg dailyon k supplement Benign pro static hyperplasia without outflow obstruction 875314617 N40.0 check psaon finasterid esees Dr. Lee Hyperlipidemia 96120255 E78.5 on pravastain Obesity 546353865 E66.9 check hba1c Preventive procedure 169 631141 Z29.9 colonoscpy long time ago and do not want to get anymoreflu : ovid: uptodatepn eumoina: [id number] Pastor Rossi MD [facility] [address] [facility] [address] [address] [place] [address] 09/23/2023 13:59:03 09/23/2023 15:03:32 Essential hypertension 24613605 I10 bp not optimal but improvingo n amlod 5, lisinopril 40 bid, hctz 25 mg dailyon k supplement bp still not optimal will increase amlodipine to 10 mg daily Benign pro static hyperplasia without outflow obstruction 404995016 N40.[address] Olivasa normal Hyperlipidemia 85111792 E78.5 on pravastain ldld 131take pravastati n at night Obesity 058712785 E66.9 a1c 5.7 Preventive procedure 169 563153 Z29.9 colonoscpy long time ago and do not want to get anymoreflu : ovid: uptodatepn eumoina: Chronic ki dney disease 706565527 N18.30 cr 1.6no prior levelswill rehceck and monitor [id number] Pastor Rossi MD [facility] [address] [facility] [address] [place] [address] 12/31/2023 11:01:16 12/31/2023 12:10:15 Essential hypertension 14102051 I10 bp not optimal but improvingo n amlod 5, lisinopril 40 bid, hctz 25 mg dailyon k supplement bp still not optimalinc reased amlodipine to 10 mg dailycr up from 1.5 yo 2will lower lisinopril to 40 daily and hctz offrcheck bmp in1-2 months Chronic ki dney disease 637765262 N18.30 cr 1.6no prior levelsrece hck 12/25 with cr up to 2will lower lisinopril and stop hctzbp lowish at times at home Benign pro static hyperplasia without outflow obstruction 485675818 N40.[address] Ibrahim normal Hyperlipidemia 60277765 E78.5 on pravastain ldld 131take pravastati n at night Obesity 868383788 E66.9 a1c 5.7diet and physical activity Preventive procedure 169 281947 Z29.9 colonoscpy long time ago and do not want to get anymoreflu : ovid: uptodatepn eumoina:no netdap: 2016 Low back pain 739126283 M54.50 ongoing since 2 months.no radicular pains presentwil l monitor for now [id number] Pastor Rossi MD [facility] [address] [facility] [address] [place] [address] 03/03/2024 09:56:19 03/03/2024 10:29:06 Essential hypertension 91531288 I10 bp not optimal but improvingo n amlod 5, lisinopril 40 bid, hctz 25 mg dailyon k supplement bp still not optimalinc reased amlodipine to 10 mg dailycr up from [age] yo 2lowered lisinopril to 40 daily and hctz offbp optimal at homecr 1.7 7/24 Chronic ki dney disease 795703994 N18.30 cr 1.6no prior levelsrece hck 12/25 with cr up to 2lowered lisinopril and stop hctzbp optimal at homeoff hctz, will also stop kcl Benign pro static hyperplasia without outflow obstruction 482473357 N40.[address] Ibrahim normal Hyperlipidemia 31202548 E78.5 on pravastain ldld 131started to take pravastati n at night Obesity 572661687 E66.9 a1c 5.7diet and physical activity Preventive procedure 169 211949 Z29.9 colonoscpy long time ago and do not want to get anymoreflu : ovid: uptodatepn eumoina:no ne recommende dtdap: 2016 Low back pain 969488565 M54.50 ongoing on and offno radicular pains presentdis cussed xrays to evaluateit s stable. [id number] Pastor Rossi MD [facility] [address] [place] [address] 09/01/2024 09:44:21 09/01/2024 10:20:20 Essential hypertension 21784851 I10 bp not optimal but improvingo n amlod 5, lisinopril 40 bid, hctz 25 mg dailyon k supplement bp still not optimalinc reased amlodipine to 10 mg dailycr up from [age] yo 2lowered lisinopril to 40 daily and hctz offbp optimal at homecr 1.7 02/24, 08/28 Chronic ki dney disease 455697047 N18.30 cr 1.6no prior levelsrece hck 12/25 with cr up to 2lowered lisinopril and stop hctzbp optimal at homeoff hctz, will also stop kcl08/28 : 1.7 Benign pro static hyperplasia without outflow obstruction 175314674 N40.[address] Ibrahim normal Hyperlipidemia 09039301 E78.5 on pravastati nldld 131started to take pravastati n at nightmildl y elevation TG but LDL improved down to 113 Obesity 858138937 E66.9 a1c 5.7diet and physical activity: 5.8 Preventive procedure 169 628378 Z29.9 colonoscpy long time ago and do not want to get anymoreflu : ovid: uptodatepn eumonia:no ne recommende dtdap: 2016 Low back pain 145345982 M54.50 ongoing on and offno radicular pains presentdis cussed xrays to evaluateit s stable. Pain of le ft elbow joint [id number] 0771742 M25.522 likely ligamentou s injuryseei ng orthopedic s [id number] Pastor Rossi MD [facility] [address] [facility] [address] [place] [address] 03/09/2025 09:52:19 03/09/2025 10:55:09 Essential hypertension 21413399 I10 bp not optimal but improvingo n amlod 5, lisinopril 40 bid, hctz 25 mg dailyon k supplement bp still not optimal increased amlodipine to 10 mg dailycr up from [age] yo 2lowered lisinopril to 40 daily and hctz offbp optimal at homecr 1.7 02/24, 08/28contin ue to monitor bp at home.bp not optimal but reasonable for his agerecheck and monitor labs Chronic ki dney disease 439280668 N18.30 cr 1.6no prior levelsrece hck 12/25 with cr up to 2lowered lisinopril and stop hctzbp optimal at homeoff hctz, will also stop kcl08/28 : 1.7 Benign pro static hyperplasia without outflow obstruction 721995472 N40.[address] Ibrahim normal Hyperlipidemia 99821640 E78.5 on pravastati nldld 131started to take pravastati n at nightmildl y elevation TG but LDL improved down to 113 Obesity 252341052 E66.9 a1c 5.7diet and physical activity: 5.8 Preventive procedure 169 282989 Z29.9 colonoscpy long time ago and do not want to get anymoreflu : ovid: uptodatepn eumonia: long time ago. recommende dtdap: 2016RSV: 04/2024 Low back pain 649911813 M54.50 ongoing on and offno radicular pains presentdis cussed xrays to evaluateit s stable. Intermittent vertigo 103 295595 R42 198667 one episodelik katheryn related to viral syndrome.s ymptoms has resovled now [id number] Pastor Rossi MD [facility] [address] [facility] [address] [place] [address] 05/11/2025 14:20:33 05/11/2025 14:58:53 Essential hypertension 85923000 I10 bp not optimal but stable.on amlod 5, lisinopril 40 bid, hctz 25 mg dailyon k supplement bp still not optimal increased amlodipine to 10 mg dailycr up from [age] yo 2lowered lisinopril to 40 daily and hctz offbp optimal at homecr 1.7 02/24, 08/28contin ue to monitor bp at home.bp not optimal but reasonable for his agerecheck and monitor labs Chronic ki dney disease 342462050 N18.30 cr 1.6no prior levelsrece hck 12/25 with cr up to 2lowered lisinopril and stop hctzbp optimal at homeoff hctz, will also stop kcl08/28 : 1.7 Benign pro static hyperplasia without outflow obstruction 527616438 N40.[address] Ibrahim normal Hyperlipidemia 22777632 E78.5 on pravastati nldld 131started to take pravastati n at nightmildl y elevation TG but LDL improved down to 113 Obesity 036883413 E66.9 a1c 5.7diet and physical activity: 5.8 Preventive procedure 169 186737 Z29.9 colonoscpy long time ago and do not want to get anymoreflu : 2022, ovid: uptodatepn eumonia: long time ago. recommende dtdap: 2016RSV: 04/2024 discussed vaccinatio n with the patient and reviewed the vaccinatio n status Low back pain 972735070 M54.50 ongoing on and offno radicular pains presentdis cussed xrays to evaluateit s stable. Intermittent vertigo 103 011128 R42 777607 one episodelik katheryn related to viral syndrome.s ymptoms has resovled now Acute bact erial sinusitis 86707137 J01.90 B96.89 74075 onging since past 10 days.will give doxycyclin e.flonase nasal spray. Chronic ankle pain 89942 96422 9109 M25.571 G89.29 20491852 on and off for 6 weeks or month.not improving. ibuprofen helpsdoes seem to helpcompre sson sockswill get venous duplex and zoila to further evaluate. has lower amplitude pulse on dorsalis pedis on right Prediabetes 468652285 R7 3.03 865833 a1x 5.8continu e to monitor [id number] Pastor Rossi MD [facility] [address] [place] [address] 05/31/2025 10:02:26 05/31/2025 10:36:43 General examination of patient 568398150 Z00.01 01416539 colonoscpy long time ago and do not want to get anymoreflu : 2022, ovid: uptodatepn eumonia: long time ago. recommende dtdap: 2016RSV: 04/2024 discussed vaccinatio n with the patient and reviewed the vaccinatio n status Acute bact erial bronchitis 716001895 J20.8 B96.89 9446212 ongoing with carlito.wi ll give medrol dosee migel, azithromyc in.albuter ol inahler prnmucinex add Chronic ankle pain 69891 11742 9109 M25.571 G89.29 43061045 on and off for 6 weeks or month.not improving. ibuprofen helpsdoes seem to helpcompre sson socksxr ankle 05/28: no acute findings (obtained at [facility])w ill get venous duplex and zoila to further evaluate. has lower amplitude pulse on dorsalis pedis on right: which did not get covered and hence not done yet Essential hypertension 55592870 I10 bp not optimal but stable.on amlod 5, lisinopril 40 bid, hctz 25 mg dailyon k supplement bp still not optimal increased amlodipine to 10 mg dailycr up from [age] yo 2lowered lisinopril to 40 daily and hctz offbp optimal at homecr 1.7 02/24, 08/28contin ue to monitor bp at home.bp not optimal but reasonable for his agerecheck and monitor labs Chronic ki dney disease 996722125 N18.30 cr 1.6no prior levelsrece hck 12/25 with cr up to 2lowered lisinopril and stop hctzbp optimal at homeoff hctz, will also stop kcl08/28 : 1.710/25: 1.4 Benign pro static hyperplasia without outflow obstruction 446173874 N40.[address] Ibrahim normal 05/28 Hyperlipidemia 27339666 E78.5 on pravastati nldld 131started to take pravastati n at nightmildl y elevation TG but LDL improved down to 113 Obesity 516829745 E66.9 a1c 5.7diet and physical activity: 5.8 Preventive procedure 169 664782 Z29.9 colonoscpy long time ago and do not want to get anymoreflu : 2022, ovid: uptodatepn eumonia: long time ago. recommende dtdap: 2016RSV: 04/2024 discussed vaccinatio n with the patient and reviewed the vaccinatio n status Low back pain 948063699 M54.50 ongoing on and offno radicular pains presentdis cussed xrays to evaluateit s stable. Intermittent vertigo 103 759035 R42 395567 one episodelik katheryn related to viral syndrome.s ymptoms has resovled now Prediabetes 013296393 R7 3.03 490243 a1x 5.8continu e to monitorrep eat 5.4 normal 05/28 Peripheral vascular disease 623119436 I73.9 [id number] will order us duplex Health Concerns Section Related Observation LastModified by Organization Detai ls LastModified Time None Recorded Concern Status LastModified by Organization Details LastModified Time None Recorded Advance Directives Directive None Recorded Payers Insurance Date Sequence Insurance Name Policy Number Policy [place] Covered Member ID [place] Member ID Guarantor Name 05/28/2025 1 [facility] (MEDICARE REPLACEMENT/A DVANTAGE - HMO) [id number] Kartik Reardon [id number] Kartik Graves Notes Date Note Type Note Provider Name and Address Organization Details Recorded Time 03/03/2024 text/html ROS as noted in the HPI Pt here for lab review. C/O back ache x 3 months. He continues to walk the neighbors dog daily and mows grass. BP log reviewed. No chest pain, shortness of breath, nausea or vomiting. Pastor Rossi MD [address] [facility] [address], [place], [address], [facility] 03/03/2024 10:22:55 09/01/2024 text/html ROS as noted in the [facility] Pt here for lab review. He had a cyst removed on upper middle back by dermatologists 1 week ago. Stitches intake. No drainage. He also has ortho appt tommorrow for left elbow pain. No shortness of breath, chest pain, nausea or vomiting. Denies numbness or tingling in hands and feet. Pastor Rossi MD [address] [facility] [address], [place], [address], [facility] 09/01/2024 10:17:56 03/09/2025 text/html ROS as noted in the [facility] Patient here for follow up. Patient recently experienced a day/night of vomiting and feeling ill with vertigo. Symptoms improved. Patient continues to walk neighbors dog daily. No concerns at this time. No chest pain, shortness of breath, nausea or vomiting. MD Ruthy Turcios[address] [facility] [address], [place], [address], [facility] 03/09/2025 18:24:48 05/11/2025 text/html ROS as noted in the [facility] Pt here for sick visit. Pt c/o sinus drainage-clear, cough x 10 days. Denies fever, chest pain, shortness of breath. Pt is currently taking dayquil, nyquil, and Sinex nasal spray. he reports some pain in the right ankle on and off. it goes from knee to ankle area. Pastor Rossi MD [address] [facility] [address], [place], [address], [facility] 05/11/2025 18:19:06 05/31/2025 text/html Medicare Annual Wellness VisitReported by PatientSocial/Behavior al HistoryFor diet and nutrition, patient reportshealthy diet. For fracture risk, patient reportsno history of fractures,no recent explained fracture,no sudden unexplained fractures, andno previous musculoskeletal injuries. For physical activity, patient reportsexercises on a regular basis,recent increase in physical activity, andgood physical condition.Mental Status:For depression risk, patient reportsnever feels sad, empty, or tearful,no loss of interest in activities,no significant changes in weight,no sleep disturbances or insomnia,no agitation,no loss of energy,no feelings of worthlessness or guilt,no thoughts of suicide,no history of depression, andno history of mood disorders. For orientation, patient reportsno disorientation to time,no disorientation to date, andno disorientation to place. For concentration and memory, patient reportsno decreased concentrating ability,no memory lapses or loss, anddoes not forget words. For speech/motor difficulties, patient reportsno speech difficulties,no difficulty expressing formulated concepts,no difficulty with fine manipulative tasks,no difficulty writing/copying,no slowed reaction time, anddoes not knock things over when trying to pick them up.Functional AbilityFor hearing, patient reportsno loss of hearing. For vision, patient reportsno vision problems. For activities of daily living, patient reportsable to bathe with limited or no assistance,able to contol urination and bowels,able to dress with limited or no assistance,able to feed self with limited or no assistance,able to get out of chair or bed with limited or no assistance,able to groom with limited or no assistance, andable to toilet with limited or no assistance. For instrumental activities of daily living, patient reportsable to do house work with limited or no assistance,able to grocery shop with limited or no assistance,able to manage medications with limited or no assistance,able to manage money with limited or no assistance,able to prepare meals with limited or no assistance, andable to use the phone with limited or no assistance. For falls risk assessment, patient reportsno frequent falls while walking,no fall in the past year,no fall since last visit, andno dizziness/vertigo. For home safety, patient reportsno unsafe rancho hazzards,no unsafe stairs,no unsafe gas appliances,working smoke/co detectors,wears protective head gear for biking/high velocity,use of seatbelts,practicing 'safer sex',no vision or hearing loss while driving,no fire arms,has hand bars in the bathroom/shower, andgood lighting in the home. Pt here for subsequent annual wellness. No falls noted, depression screening negative. Pt cont. to walk neighbor dog daily. No safety issues at home. Pt in office today c/o cough, congestion, drainage in back of throat, unable to sleep at night. Pt takes nyquil daily. Ankle pain improved. No chest pain, shortness of breath, nausea or vomiting. Good appetite. Pastor Rossi MD [address], [place], [address], [facility] 05/31/2025 15:55:25
--- OUTSIDE RECORDS SUMMARY | 2025-06-16 14:06 | XMS_ITS | Clinical Summary ---
Author Organization [facility] Address [address] [place] [address] Care Team Providers Care Marketing Communication Manager Name Role Phone Unavailable Primary Care Provider Unavailabl e Source Comments [facility],non-owned Affiliates and Associated Physician Practices is amultiple site organization consisting of ambulatory clinics and hospital sitesin [place], [place], [place] and [place]. This disclosure is being madepursuant to the Care Everywhere program and may not contain all information available regarding this patient. Last updated 18.[facility] Social History Tobacco Use Types Packs/Day Years Used Date Smoking Tobacco: Never Assessed Sex and Gender Information Value Date Recorded Sex Assigned at Not on file Legal Sex Male 9:51 AM CDT Gender Identity Not on file Sexual Orientation Not on file Plan of Treatment Health Maintenance Due Date Last Done Comments DTAP/TDAP/TD VACCINES (1 - Tdap) 1963 PNEUMOCOCCAL VACCINE 50+ (1 of 1 - PCV) 1994 ZOSTER VACCINE (1 of 2) 1994 Respiratory Syncytial Virus (RSV) Vaccine Pt: or over 60 yrs (1 - 1-dose 75+ series) 2019 DEPRESSION SCREENING 08/04/2024 MEDICARE AWV CALENDAR YEAR 2024 COVID-19 VACCINE (1 - 2023-2 5 season) 2025 INFLUENZA VACCINE (#1) 2025 HEPATITIS B VACCINE Aged Out No longe r eligible based on patient's age to complete this topic HIB VACCINE Aged Out No longer eligi ble based on patient's age to complete this topic HPV VACCINE Aged Out No longer eligi ble based on patient's age to complete this topic MENINGOCOCCAL (Group B) VACC INE SHARED DECISION-MAKING Aged Out No longer eligibl e based on patient's age to complete this topic MENINGOCOCCAL GROUPS A/C/Y/W VACCINE Aged Out No longer eligible b ased on patient's age to complete this topic Insurance [facility] MANAGED MEDICARE ADV
--- OUTSIDE RECORDS SUMMARY | 2025-06-16 14:06 | XMS_ITS | Data Portability ---
Author Organization [place] [employer], Main Office Address [address] [place] [address] Care Team Providers Care Retail Coverage Merchandiser Lead Name Role Phone JORGE LUIS SOUTH Primary Care Provider [phone] JORGE LUIS SOUTH Referring Provider [phone] Assessment Encounter Date Assessment Date Assessment LastModified by Organization Details LastModified Time 10/17/2022 10/17/2022 Increase lisinopril 40 b.i.d. Blood work ordered Follow-up 6 months Diagnosis in assessment plan been discussed [email or web address] Not available 10/17/2022 22:57:46 04/24/2023 04/24/2023 Will continue current therapy follow-up in 6 months [email or web address] Not available 04/25/2023 08:58:56 Plan of Treatment Reminders Order Date Submit Date Provider Last Modified By Organization Details Last Modified Time Details Appointments None recorded. Lab CBC w/ auto diff 2022 023 [facility] Not available 3 12:33:58 lipid panel, serum 2022 023 [facility] Not available 3 13:02:45 CMP, serum or plasma 2022 023 [facility] Not available 3 13:02:50 Referral None recorded. Procedures None recorded. Surgeries None recorded. Imaging None recorded. Medication Orders lisinopril 40 mg tablet 2022 023 [place] [id number] [id number], [address] [facility], [place], [place], [id number], 4 10:27:42 Patient TargetsNo targets recorded. Patient InstructionsNo instructions recorded. Reason for Referral None Reported. Results Created Date Observation Date Name Description Value Unit Range Abnormal Flag Note LastModifiedBy Organization Detail LastModifiedTime 08/23/19 22 08/23/2021 COMPR EHENS MYCHAL METAB OLIC PANEL carbon dioxide 32 mmol/ L 22-30 high Not Available [facility] (Lab) [address] [place], [address], 08/23/2021 18:54:28 08/23/19 22 08/23/2021 COMPR EHENS MYCHAL METAB OLIC PANEL sodium 142 mmol/ L 137-14 5 Not Available [facility] (Lab) [address] [place], [address], 08/23/2021 18:54:28 08/23/19 22 08/23/2021 COMPR EHENS MYCHAL METAB OLIC PANEL potassium 3.6 mmol/ L 3.5-5. 1 Not Available [facility] (Lab) [address] [place], [address], 08/23/2021 18:54:28 08/23/19 22 08/23/2021 COMPR EHENS MYCHAL METAB OLIC PANEL chloride 103 mmol/ L 98-107 Not Available [facility] (Lab) [address] [place], [address], 08/23/2021 18:54:28 08/23/19 22 08/23/2021 COMPR EHENS MYCHAL METAB OLIC PANEL agap 10.6 mmol/ L 14-22 low Not Available [facility] (Lab) [address] [place], [address], 08/23/2021 18:54:28 08/23/19 22 08/23/2021 COMPR EHENS MYCHAL METAB OLIC PANEL glucose 124 mg/dL 70-99 high Not Available [facility] (Lab) [address] [place], [address], 08/23/2021 18:54:28 08/23/19 22 08/23/2021 COMPR EHENS MYCHAL METAB OLIC PANEL BUN 25 mg/dL 8-19 high Not Available [facility] (Lab) [address] [place], [address], 08/23/2021 18:54:28 08/23/19 22 08/23/2021 COMPR EHENS MYCHAL METAB OLIC PANEL creatinine 1.63 mg/dL 0.66-1 .25 high Not Available [facility] (Lab) [address] [place], [address], 08/23/2021 18:54:28 08/23/19 22 08/23/2021 COMPR EHENS MYCHAL METAB OLIC PANEL aspartate aminotransfe rase 24 U/L 15-46 Not Available [facility] (Lab) [address] [place], [address], 08/23/2021 18:54:28 08/23/19 22 08/23/2021 COMPR EHENS MYCHAL METAB OLIC PANEL GFR 41 Refer ence Range : [place] ge GFR Healt hy Adult : >60 mL/mi n/1.7 3 m2 Chron ic Kidne y Disea se: 15-60 mL/mi n/1.7 3 m2 Kidne y Failu re: <15/m L/min /1.73 m2 www.n iddk. nih.g ov The MDRD study equat ion has not been valid ated in child jake <18 years of age; pregn ant women ; the elder ly >85 years of age; or in some racia l or ethni c subgr oups, such as Hispa nics. Outsi de the valid ated minesh eters , estim ated GFR is less accur ate, requi ring clini josiah judgm ent on a case- by-ca se basis . Clini josiah inter preta tion for other races and ages must be made by the clini kajal. The MDRD study equat ion has not been valid ated for the evalu ation of serum creat inine relat ed to nutri karlee l statu s or medic ation usage . For perso ns <18 years of age, a pedia tric GFR calcu lator is avail able on the [facility] websi te: https :[email or web address] steward.laila christiansen.o binta/pr ofess ional s/kdo qi/gf r_cal culat or Not Available [facility] (Lab) [address] [place], [address], 08/23/2021 18:54:28 08/23/19 22 08/23/2021 COMPR EHENS MYCHAL METAB OLIC PANEL alkaline phosphatase 81 U/L 38-126 Not Available [facility] (Lab) [address] [place], [address], 08/23/2021 18:54:28 08/23/19 22 08/23/2021 COMPR EHENS MYCHAL METAB OLIC PANEL alanine aminotransfe rase 24 U/L 0-50 Not Available [facility] (Lab) [address] [place], [address], 08/23/2021 18:54:28 08/23/19 22 08/23/2021 COMPR EHENS MYCHAL METAB OLIC PANEL bilirubin, total 0.50 mg/dL 0.20-1 .30 Not Available [facility] (Lab) [address] [place], [address], 08/23/2021 18:54:28 08/23/19 22 08/23/2021 COMPR EHENS MYCHAL METAB OLIC PANEL calcium 9.4 mg/dL 8.4-10 .2 Not Available [facility] (Lab) [address] [place], [address], 08/23/2021 18:54:28 08/23/19 22 08/23/2021 COMPR EHENS MYCHAL METAB OLIC PANEL total protein 7.2 g/dL 6.3-8. 2 Not Available [facility] (Lab) [address] [place], [address], 08/23/2021 18:54:28 08/23/19 22 08/23/2021 COMPR EHENS MYCHAL METAB OLIC PANEL albumin 4.5 g/dL 3.0-4. 4 high Not Available [facility] (Lab) [address] [place], [address], 08/23/2021 18:54:28 08/23/19 22 08/23/2021 COMPR EHENS MYCHAL METAB OLIC PANEL globulin 2.7 g/dL 2.6-4. 2 Not Available [facility] (Lab) [address] [place], [address], 08/23/2021 18:54:28 08/23/19 22 08/23/2021 COMPR EHENS MYCHAL METAB OLIC PANEL A/G ratio 1.7 ratio 1.0-2. 0 Not Available [facility] (Lab) [address] [place], [address], 08/23/2021 18:54:28 08/23/19 22 08/23/2021 LIPID PANEL LDL cholesterol, calculated 115 mg/dL 0-130 NIH JODI NSUS REPOR T RECOM MENDA TIONS FOR LDL: ADULT CHILD LOW RISK <130 <110 (OPTI MAL LDL) <100 ----- BORDE RLINE : 130-1 59 ----- HIGH RISK: >160 >130 A TRIGL YCERI DE RESUL T >400 INVAL IDATE S THE CALCU LATIO N FOR LDL FRACT IONAT ION - THE LDL RESUL T WILL NOT BE REPOR BERENICE. Not Available [facility] (Lab) [address] [place], [address], 08/23/2021 18:54:22 08/23/19 22 08/23/2021 LIPID PANEL cholesterol 179 mg/dL 140-19 9 NIH JODI NSUS RECOM MENDA TION FOR NINA STERO L: ADULT CHILD LOW RISK: <200 <170 BORDE RLINE : <200- 239 ----- HIGH RISK: >240 >200 Not Available [facility] (Lab) [address] [place], [address], 08/23/2021 18:54:22 08/23/19 22 08/23/2021 LIPID PANEL triglyceride s 91 mg/dL 0-150 NIH JODI NSUS REPOR T RECOM MENDA TION FOR TRIGL YCERI DARSHANA: ADULT CHILD LOW RISK: <150 ----- BODER LINE: 150-1 99 ----- HIGH RISK: >200 ----- Not Available [facility] (Lab) [address] [place], [address], 08/23/2021 18:54:22 08/23/19 22 08/23/2021 LIPID PANEL HDL cholesterol 46 mg/dL 40- Not Available [facility] (Lab) [address] [place], [address], 08/23/2021 18:54:22 08/23/19 22 08/23/2021 CBC/C OMPLE TE BLD COUNT W/DIF F platelets 189 x10'3 /uL 150-40 0 Not Available [facility] (Lab) [address] [place], [address], 08/23/2021 13:09:48 08/23/19 22 08/23/2021 CBC/C OMPLE TE BLD COUNT W/DIF F white blood cells 9.5 x10'3 /uL 4.2-10 .8 Not Available [facility] (Lab) [address] [place], [address], 08/23/2021 13:09:48 08/23/19 22 08/23/2021 CBC/C OMPLE TE BLD COUNT W/DIF F red blood cells 5.55 x10'6 /uL 4.10-5 .80 Not Available [facility] (Lab) [address] [place], [address], 08/23/2021 13:09:48 08/23/19 22 08/23/2021 CBC/C OMPLE TE BLD COUNT W/DIF F hemoglobin 16.5 g/dL 13.2-1 7.0 Not Available [facility] (Lab) [address] [place], [address], 08/23/2021 13:09:48 08/23/19 22 08/23/2021 CBC/C OMPLE TE BLD COUNT W/DIF F hematocrit 49.6 % 39.3-5 0.0 Not Available [facility] (Lab) [address] [place], [address], 08/23/2021 13:09:48 08/23/19 22 08/23/2021 CBC/C OMPLE TE BLD COUNT W/DIF F mean red cell volume 89.4 fL 80.0-9 7.0 Not Available [facility] (Lab) [address] [place], [address], 08/23/2021 13:09:48 08/23/19 22 08/23/2021 CBC/C OMPLE TE BLD COUNT W/DIF F mean red cell hemoglobin 29.7 pg 27.0-3 3.0 Not Available [facility] (Lab) [address] [place], [address], 08/23/2021 13:09:48 08/23/19 22 08/23/2021 CBC/C OMPLE TE BLD COUNT W/DIF F mean RBC HGB concentratio n 33.3 g/dL 31.0-3 6.0 Not Available [facility] (Lab) [address] [place], [address], 08/23/2021 13:09:48 08/23/19 22 08/23/2021 CBC/C OMPLE TE BLD COUNT W/DIF F red cell distribution width 12.9 % 11.8-1 5.5 Not Available [facility] (Lab) [address] [place], [address], 08/23/2021 13:09:48 08/23/19 22 08/23/2021 CBC/C OMPLE TE BLD COUNT W/DIF F mean platelet volume 11.7 fL 9.0-12 .4 Not Available [facility] (Lab) [address] [place], [address], 08/23/2021 13:09:48 08/23/19 22 08/23/2021 CBC/C OMPLE TE BLD COUNT W/DIF F neutrophils 68.4 % 39.0-7 2.0 Not Available [facility] (Lab) [address] [place], [address], 08/23/2021 13:09:48 08/23/19 22 08/23/2021 CBC/C OMPLE TE BLD COUNT W/DIF F lymphocytes 22.5 % 16.0-4 7.0 Not Available [facility] (Lab) [address] [place], [address], 08/23/2021 13:09:48 08/23/19 22 08/23/2021 CBC/C OMPLE TE BLD COUNT W/DIF F monocytes 5.4 % 5.0-12 .0 Not Available [facility] (Lab) [address] [place], [address], 08/23/2021 13:09:48 08/23/19 22 08/23/2021 CBC/C OMPLE TE BLD COUNT W/DIF F eosinophils 3.0 % 1.0-7. 0 Not Available [facility] (Lab) [address] [place], [address], 08/23/2021 13:09:48 08/23/19 22 08/23/2021 CBC/C OMPLE TE BLD COUNT W/DIF F basophils 0.6 % 0.0-2. 0 Not Available [facility] (Lab) [address] [place], [address], 08/23/2021 13:09:48 08/23/19 22 08/23/2021 CBC/C OMPLE TE BLD COUNT W/DIF F immature granulocytes 0.1 % 0.00-0 .50 Not Available [facility] (Lab) [address] [place], [address], 08/23/2021 13:09:48 08/23/19 22 08/23/2021 CBC/C OMPLE TE BLD COUNT W/DIF F neutrophils, absolute count 6.50 x10'3 /uL 1.5-8. 0 Not Available [facility] (Lab) [address] [place], [address], 08/23/2021 13:09:48 08/23/19 22 08/23/2021 CBC/C OMPLE TE BLD COUNT W/DIF F lymphocytes, absolute count 2.14 x10'3 /uL 1.07-3 .43 Not Available [facility] (Lab) [address] [place], [address], 08/23/2021 13:09:48 08/23/19 22 08/23/2021 CBC/C OMPLE TE BLD COUNT W/DIF F monocytes, absolute count 0.51 x10'3 /uL 0.29-0 .99 Not Available [facility] (Lab) [address] [place], [address], 08/23/2021 13:09:48 08/23/19 22 08/23/2021 CBC/C OMPLE TE BLD COUNT W/DIF F eosinophils, absolute count 0.29 x10'3 /uL 0.02-0 .53 Not Available [facility] (Lab) [address] [place], [address], 08/23/2021 13:09:48 08/23/19 22 08/23/2021 CBC/C OMPLE TE BLD COUNT W/DIF F basophils, absolute count 0.06 x10'3 /uL 0.01-0 .08 Not Available [facility] (Lab) [address] [place], [address], 08/23/2021 13:09:48 08/23/19 22 08/23/2021 CBC/C OMPLE TE BLD COUNT W/DIF F immature granulocytes ,absolute 0.01 x10'3 /uL 0.00-0 .05 Not Available [facility] (Lab) [address] [place], [address], 08/23/2021 13:09:48 08/23/19 22 08/23/2021 CBC/C OMPLE TE BLD COUNT W/DIF F nucleated red blood cells 0.0 % -0 Not Available [facility] (Lab) [address] [place], [address], 08/23/2021 13:09:48 08/23/19 22 08/23/2021 CBC/C OMPLE TE BLD COUNT W/DIF F NRBC# 0.00 x10'3 /uL Not Available [facility] (Lab) [address] [place], [address], 08/23/2021 13:09:48 05/14/20 22 05/14/2022 PSA SCREE N PSA medicare screen 1.42 NG/mL 0.00-4 .00 Not Available [facility] (Lab) [address] [place], [address], 05/14/2022 19:29:49 05/14/20 22 05/14/2022 COMPR EHENS MYCHAL METAB OLIC PANEL anion gap 9.5 mmol/ L 14-22 low Not Available [facility] (Lab) [address] [place], [address], 05/14/2022 18:44:53 05/14/20 22 05/14/2022 COMPR EHENS MCYHAL METAB OLIC PANEL sodium 142 mmol/ L 137-14 5 Not Available [facility] (Lab) [address] [place], [address], 05/14/2022 18:44:53 05/14/20 22 05/14/2022 COMPR EHENS MYCHAL METAB OLIC PANEL potassium 3.5 mmol/ L 3.5-5. 1 Not Available [facility] (Lab) [address] [place], [address], 05/14/2022 18:44:53 05/14/20 22 05/14/2022 COMPR EHENS MYCHAL METAB OLIC PANEL chloride 109 mmol/ L 98-107 high Not Available [facility] (Lab) [address] [place], [address], 05/14/2022 18:44:53 05/14/2005/14/2022 COMPR EHENS MYCHAL METAB OLIC PANEL carbon dioxide 27 mmol/ L 22-30 Not Available [facility] (Lab) [address] [place], [address], 05/14/2022 18:44:53 05/14/2005/14/2022 COMPR EHENS MYCHAL METAB OLIC PANEL glucose 100 mg/dL 70-99 high Not Available [facility] (Lab) [address] [place], [address], 05/14/2022 18:44:53 05/14/20 22 05/14/2022 COMPR EHENS MYCHAL METAB OLIC PANEL BUN 24 mg/dL 8-19 high Not Available [facility] (Lab) [address] [place], [address], 05/14/2022 18:44:53 05/14/20 22 05/14/2022 COMPR EHENS MYCHAL METAB OLIC PANEL creatinine 1.65 mg/dL 0.66-1 .25 high Not Available [facility] (Lab) [address] [place], [address], 05/14/2022 18:44:53 05/14/20 22 05/14/2022 COMPR EHENS MYCHAL METAB OLIC PANEL GFR 41 Refer ence Range : [place] GFR Healt hy Adult : >60 mL/mi n/1.7 3 m2 Chron ic Kidne y Disea se: 15-60 mL/mi n/1.7 3 m2 Kidne y Failu re: <15/m L/min /1.73 m2 www.n iddk. nih.g ov The MDRD study equat ion has not been valid ated in child jake <18 years of age; pregn ant women ; the elder ly >85 years of age; or in some racia l or ethni c subgr oups, such as Hispa nics. Outsi de the valid ated minesh eters , estim ated GFR is less accur ate, requi ring clini josiah judgm ent on a case- by-ca se basis . Clini josiah inter preta tion for other races and ages must be made by the clini kajal. The MDRD study equat ion has not been valid ated for the evalu ation of serum creat inine relat ed to nutri karlee l statu s or medic ation usage . For perso ns <18 years of age, a pedia tric GFR calcu lator is avail able on the [facility] websi te: https :[email or web address] w.laila christiansen.o rg/pr ofess ional s/kdo qi/gf r_cal culat or Not Available [facility] (Lab) [address] [place], [address], 05/14/2022 18:44:53 05/14/20 22 05/14/2022 COMPR EHENS MYCHAL METAB OLIC PANEL bilirubin, total 0.90 mg/dL 0.20-1 .30 Not Available [facility] (Lab) [address] [place], [address], 05/14/2022 18:44:53 05/14/20 22 05/14/2022 COMPR EHENS MYCHAL METAB OLIC PANEL alkaline phosphatase 75 U/L 38-126 Not Available [facility] (Lab) [address] [place], [address], 05/14/2022 18:44:53 05/14/20 22 05/14/2022 COMPR EHENS MYCHAL METAB OLIC PANEL alanine aminotransfe rase 20 U/L 0-50 Not Available [facility] (Lab) [address] [place], [address], 05/14/2022 18:44:53 05/14/20 22 05/14/2022 COMPR EHENS MYCHAL METAB OLIC PANEL aspartate aminotransfe rase 26 U/L 15-46 Not Available [facility] (Lab) [address] [place], [address], 05/14/2022 18:44:53 05/14/20 22 05/14/2022 COMPR EHENS MYCHAL METAB OLIC PANEL calcium 9.7 mg/dL 8.4-10 .2 Not Available [facility] (Lab) [address] [place], [address], 05/14/2022 18:44:53 05/14/20 22 05/14/2022 COMPR EHENS MYCHAL METAB OLIC PANEL total protein 7.8 g/dL 6.3-8. 2 Not Available [facility] (Lab) [address] [place], [address], 05/14/2022 18:44:53 05/14/20 22 05/14/2022 COMPR EHENS MYCHAL METAB OLIC PANEL albumin 4.7 g/dL 3.0-4. 4 high Not Available [facility] (Lab) [address] [place], [address], 05/14/2022 18:44:53 05/14/20 22 05/14/2022 COMPR EHENS MYCHAL METAB OLIC PANEL globulin 3.1 g/dL 2.6-4. 2 Not Available [facility] (Lab) [address] [place], [address], 05/14/2022 18:44:53 05/14/20 22 05/14/2022 COMPR EHENS MYCHAL METAB OLIC PANEL A/G ratio 1.5 ratio 1.0-2. 0 Not Available [facility] (Lab) [address] [place], [address], 05/14/2022 18:44:53 05/14/2005/14/2022 LIPID PANEL cholesterol 189 mg/dL 140-19 9 NIH JODI NSUS RECOM MENDA TION FOR NINA STERO L: ADULT CHILD LOW RISK: <200 <170 BORDE RLINE : <200- 239 ----- HIGH RISK: >240 >200 Not Available [facility] (Lab) [address] [place], [address], 05/14/2022 18:44:42 05/14/2005/14/2022 LIPID PANEL triglyceride s 109 mg/dL 0-150 NIH JODI NSUS REPOR T RECOM MENDA TION FOR TRIGL YCERI DARSHANA: ADULT CHILD LOW RISK: <150 ----- BODER LINE: 150-1 99 ----- HIGH RISK: >200 ----- Not Available [facility] (Lab) [address] [place], [address], 05/14/2022 18:44:42 05/14/20 22 05/14/2022 LIPID PANEL HDL cholesterol 49 mg/dL 40- Not Available [facility] (Lab) [address] [place], [address], 05/14/2022 18:44:42 05/14/2005/14/2022 LIPID PANEL LDL cholesterol, calculated 118 mg/dL 0-130 NIH JODI NSUS REPOR T RECOM MENDA TIONS FOR LDL: ADULT CHILD LOW RISK <130 <110 (OPTI MAL LDL) <100 ----- BORDE RLINE : 130-1 59 ----- HIGH RISK: >160 >130 A TRIGL YCERI DE RESUL T >400 INVAL IDATE S THE CALCU LATIO N FOR LDL FRACT IONAT ION - THE LDL RESUL T WILL NOT BE REPOR BERENICE. Not Available [facility] (Lab) [address] [place], [address], 05/14/2022 18:44:42 05/14/20 22 05/14/2022 CBC/C OMPLE TE BLD COUNT W/DIF F mean red cell hemoglobin 30.0 pg 27.0-3 3.0 Not Available [facility] (Lab) [address] [place], [address], 05/14/2022 18:42:05 05/14/20 22 05/14/2022 CBC/C OMPLE TE BLD COUNT W/DIF F white blood cells 8.6 x10'3 /uL 4.2-10 .8 Not Available [facility] (Lab) [address] [place], [address], 05/14/2022 18:42:05 05/14/20 22 05/14/2022 CBC/C OMPLE TE BLD COUNT W/DIF F red blood cells 5.30 x10'6 /uL 4.10-5 .80 Not Available [facility] (Lab) [address] [place], [address], 05/14/2022 18:42:05 05/14/20 22 05/14/2022 CBC/C OMPLE TE BLD COUNT W/DIF F hemoglobin 15.9 g/dL 13.2-1 7.0 Not Available [facility] (Lab) [address] [place], [address], 05/14/2022 18:42:05 05/14/20 22 05/14/2022 CBC/C OMPLE TE BLD COUNT W/DIF F hematocrit 46.8 % 39.3-5 0.0 Not Available [facility] (Lab) [address] [place], [address], 05/14/2022 18:42:05 05/14/20 22 05/14/2022 CBC/C OMPLE TE BLD COUNT W/DIF F mean red cell volume 88.3 fL 80.0-9 7.0 Not Available [facility] (Lab) [address] [place], [address], 05/14/2022 18:42:05 05/14/20 22 05/14/2022 CBC/C OMPLE TE BLD COUNT W/DIF F mean RBC HGB concentratio n 34.0 g/dL 31.0-3 6.0 Not Available [facility] (Lab) [address] [place], [address], 05/14/2022 18:42:05 05/14/20 22 05/14/2022 CBC/C OMPLE TE BLD COUNT W/DIF F red cell distribution width 13.5 % 11.8-1 5.5 Not Available [facility] (Lab) [address] [place], [address], 05/14/2022 18:42:05 05/14/20 22 05/14/2022 CBC/C OMPLE TE BLD COUNT W/DIF F platelets 184 x10'3 /uL 150-40 0 Not Available [facility] (Lab) [address] [place], [address], 05/14/2022 18:42:05 05/14/2005/14/2022 CBC/C OMPLE TE BLD COUNT W/DIF F mean platelet volume 11.1 fL 9.0-12 .4 Not Available [facility] (Lab) [address] [place], [address], 05/14/2022 18:42:05 05/14/20 22 05/14/2022 CBC/C OMPLE TE BLD COUNT W/DIF F neutrophils 67.2 % 39.0-7 2.0 Not Available [facility] (Lab) [address] [place], [address], 05/14/2022 18:42:05 05/14/20 22 05/14/2022 CBC/C OMPLE TE BLD COUNT W/DIF F lymphocytes 24.0 % 16.0-4 7.0 Not Available [facility] (Lab) [address] [place], [address], 05/14/2022 18:42:05 05/14/2005/14/2022 CBC/C OMPLE TE BLD COUNT W/DIF F monocytes 5.5 % 5.0-12 .0 Not Available [facility] (Lab) [address] [place], [address], 05/14/2022 18:42:05 05/14/2005/14/2022 CBC/C OMPLE TE BLD COUNT W/DIF F eosinophils 2.3 % 1.0-7. 0 Not Available [facility] (Lab) [address] [place], [address], 05/14/2022 18:42:05 05/14/2005/14/2022 CBC/C OMPLE TE BLD COUNT W/DIF F basophils 0.5 % 0.0-2. 0 Not Available [facility] (Lab) [address] [place], [address], 05/14/2022 18:42:05 05/14/2005/14/2022 CBC/C OMPLE TE BLD COUNT W/DIF F immature granulocytes 0.5 % 0.00-0 .50 Not Available [facility] (Lab) [address] [place], [address], 05/14/2022 18:42:05 05/14/2005/14/2022 CBC/C OMPLE TE BLD COUNT W/DIF F neutrophils, absolute count 5.75 x10'3 /uL 1.5-8. 0 Not Available [facility] (Lab) [address] [place], [address], 05/14/2022 18:42:05 05/14/20 22 05/14/2022 CBC/C OMPLE TE BLD COUNT W/DIF F lymphocytes, absolute count 2.05 x10'3 /uL 1.07-3 .43 Not Available [facility] (Lab) [address] [place], [address], 05/14/2022 18:42:05 05/14/2005/14/2022 CBC/C OMPLE TE BLD COUNT W/DIF F monocytes, absolute count 0.47 x10'3 /uL 0.29-0 .99 Not Available [facility] (Lab) [address] [place], [address], 05/14/2022 18:42:05 05/14/2005/14/2022 CBC/C OMPLE TE BLD COUNT W/DIF F eosinophils, absolute count 0.20 x10'3 /uL 0.02-0 .53 Not Available [facility] (Lab) [address] [place], [address], 05/14/2022 18:42:05 05/14/2005/14/2022 CBC/C OMPLE TE BLD COUNT W/DIF F basophils, absolute count 0.04 x10'3 /uL 0.01-0 .08 Not Available [facility] (Lab) [address] [place], [address], 05/14/2022 18:42:05 05/14/2005/14/2022 CBC/C OMPLE TE BLD COUNT W/DIF F immature granulocytes ,absolute 0.04 x10'3 /uL 0.00-0 .05 Not Available [facility] (Lab) [address] [place], [address], 05/14/2022 18:42:05 05/14/2005/14/2022 CBC/C OMPLE TE BLD COUNT W/DIF F nucleated red blood cells 0.0 % -0 Not Available [facility] (Lab) [address] [place], [address], 05/14/2022 18:42:05 05/14/2005/14/2022 CBC/C OMPLE TE BLD COUNT W/DIF F NRBC# 0.00 x10'3 /uL Not Available [facility] (Lab) [address] [place], [address], 05/14/2022 18:42:05 11/15/19 23 11/14/2022 CBC/C OMPLE TE BLD COUNT W/DIF F white blood cells 8.0 x10'3 /uL 4.2-10 .8 Not Available [facility] (Lab) [address] [facility] [place], [address], 11/14/2022 12:33:58 11/15/1911/14/2022 CBC/C OMPLE TE BLD COUNT W/DIF F red blood cells 5.15 x10'6 /uL 4.10-5 .80 Not Available [facility] (Lab) [address] [place], [address], 11/14/2022 12:33:58 11/15/1911/14/2022 CBC/C OMPLE TE BLD COUNT W/DIF F hemoglobin 15.2 g/dL 13.2-1 7.0 Not Available [facility] (Lab) [address] [place], [address], 11/14/2022 12:33:58 11/15/1911/14/2022 CBC/C OMPLE TE BLD COUNT W/DIF F hematocrit 45.7 % 39.3-5 0.0 Not Available [facility] (Lab) [address] [place], [address], 11/14/2022 12:33:58 11/15/1911/14/2022 CBC/C OMPLE TE BLD COUNT W/DIF F mean red cell volume 88.7 fL 80.0-9 7.0 Not Available [facility] (Lab) [address] [place], [address], 11/14/2022 12:33:58 11/15/19 23 11/14/2022 CBC/C OMPLE TE BLD COUNT W/DIF F mean red cell hemoglobin 29.5 pg 27.0-3 3.0 Not Available [facility] (Lab) [address] [place], [address], 11/14/2022 12:33:58 11/15/19 23 11/14/2022 CBC/C OMPLE TE BLD COUNT W/DIF F mean RBC HGB concentratio n 33.3 g/dL 31.0-3 6.0 Not Available [facility] (Lab) [address] [place], [address], 11/14/2022 12:33:58 11/15/19 23 11/14/2022 CBC/C OMPLE TE BLD COUNT W/DIF F red cell distribution width 12.8 % 11.8-1 5.5 Not Available [facility] (Lab) [address] [place], [address], 11/14/2022 12:33:58 11/15/19 23 11/14/2022 CBC/C OMPLE TE BLD COUNT W/DIF F platelets 179 x10'3 /uL 150-40 0 Not Available [facility] (Lab) [address] [place], [address], 11/14/2022 12:33:58 11/15/1911/14/2022 CBC/C OMPLE TE BLD COUNT W/DIF F mean platelet volume 11.2 fL 9.0-12 .4 Not Available [facility] (Lab) [address] [place], [address], 11/14/2022 12:33:58 11/15/19 23 11/14/2022 CBC/C OMPLE TE BLD COUNT W/DIF F neutrophils 66.8 % 39.0-7 2.0 Not Available [facility] (Lab) [address] [place], [address], 11/14/2022 12:33:58 11/15/19 23 11/14/2022 CBC/C OMPLE TE BLD COUNT W/DIF F lymphocytes 24.5 % 16.0-4 7.0 Not Available [facility] (Lab) [address] [place], [address], 11/14/2022 12:33:58 11/15/19 23 11/14/2022 CBC/C OMPLE TE BLD COUNT W/DIF F monocytes 5.5 % 5.0-12 .0 Not Available [facility] (Lab) [address] [place], [address], 11/14/2022 12:33:58 11/15/19 23 11/14/2022 CBC/C OMPLE TE BLD COUNT W/DIF F eosinophils 2.3 % 1.0-7. 0 Not Available [facility] (Lab) [address] [place], [address], 11/14/2022 12:33:58 11/15/19 23 11/14/2022 CBC/C OMPLE TE BLD COUNT W/DIF F basophils 0.8 % 0.0-2. 0 Not Available [facility] (Lab) [address] [place], [address], 11/14/2022 12:33:58 11/15/19 23 11/14/2022 CBC/C OMPLE TE BLD COUNT W/DIF F immature granulocytes 0.1 % 0.00-0 .50 Not Available [facility] (Lab) [address] [place], [address], 11/14/2022 12:33:58 11/15/19 23 11/14/2022 CBC/C OMPLE TE BLD COUNT W/DIF F neutrophils, absolute count 5.33 x10'3 /uL 1.5-8. 0 Not Available [facility] (Lab) [address] [place], [address], 11/14/2022 12:33:58 11/15/19 23 11/14/2022 CBC/C OMPLE TE BLD COUNT W/DIF F lymphocytes, absolute count 1.95 x10'3 /uL 1.07-3 .43 Not Available [facility] (Lab) [address] [place], [address], 11/14/2022 12:33:58 11/15/19 23 11/14/2022 CBC/C OMPLE TE BLD COUNT W/DIF F monocytes, absolute count 0.44 x10'3 /uL 0.29-0 .99 Not Available [facility] (Lab) [address] [place], [address], 11/14/2022 12:33:58 11/15/19 23 11/14/2022 CBC/C OMPLE TE BLD COUNT W/DIF F eosinophils, absolute count 0.18 x10'3 /uL 0.02-0 .53 Not Available [facility] (Lab) [address] [place], [address], 11/14/2022 12:33:58 11/15/19 23 11/14/2022 CBC/C OMPLE TE BLD COUNT W/DIF F basophils, absolute count 0.06 x10'3 /uL 0.01-0 .08 Not Available [facility] (Lab) [address] [place], [address], 11/14/2022 12:33:58 11/15/19 23 11/14/2022 CBC/C OMPLE TE BLD COUNT W/DIF F immature granulocytes ,absolute 0.01 x10'3 /uL 0.00-0 .05 Not Available [facility] (Lab) [address] [place], [address], 11/14/2022 12:33:58 11/15/19 23 11/14/2022 CBC/C OMPLE TE BLD COUNT W/DIF F nucleated red blood cells 0.0 % -0 Not Available [facility] (Lab) [address] [place], [address], 11/14/2022 12:33:58 11/15/1911/14/2022 CBC/C OMPLE TE BLD COUNT W/DIF F NRBC# 0.00 x10'3 /uL Not Available [facility] (Lab) [address] [place], [address], 11/14/2022 12:33:58 11/15/1911/14/2022 LIPID PANEL cholesterol 167 mg/dL 140-19 9 NIH JODI NSUS RECOM MENDA TION FOR NINA STERO L: ADULT CHILD LOW RISK: <200 <170 BORDE RLINE : <200- 239 ----- HIGH RISK: >240 >200 Not Available [facility] (Lab) [address] [place], [address], 11/14/2022 13:02:45 11/15/1911/14/2022 LIPID PANEL triglyceride s 134 mg/dL 0-150 NIH JODI NSUS REPOR T RECOM MENDA TION FOR TRIGL YCERI DARSHANA: ADULT CHILD LOW RISK: <150 ----- BODER LINE: 150-1 99 ----- HIGH RISK: >200 ----- Not Available [facility] (Lab) [address] [place], [address], 11/14/2022 13:02:45 11/15/1911/14/2022 LIPID PANEL HDL cholesterol 43 mg/dL 40- Not Available [facility] (Lab) [address] [place], [address], 11/14/2022 13:02:45 11/15/1911/14/2022 LIPID PANEL LDL cholesterol, calculated 97 mg/dL 0-130 NIH JODI NSUS REPOR T RECOM MENDA TIONS FOR LDL: ADULT CHILD LOW RISK <130 <110 (OPTI MAL LDL) <100 ----- BORDE RLINE : 130-1 59 ----- HIGH RISK: >160 >130 A TRIGL YCERI DE RESUL T >400 INVAL IDATE S THE CALCU LATIO N FOR LDL FRACT IONAT ION - THE LDL RESUL T WILL NOT BE REPOR BERENICE. Not Available [facility] (Lab) [address] [place], [address], 11/14/2022 13:02:45 11/15/19 23 11/14/2022 COMPR EHENS MYCHAL METAB OLIC PANEL sodium 140 mmol/ L 137-14 5 Not Available [facility] (Lab) [address] [place], [address], 11/14/2022 13:02:50 11/15/19 23 11/14/2022 COMPR EHENS MYCHAL METAB OLIC PANEL potassium 4.2 mmol/ L 3.5-5. 1 Not Available [facility] (Lab) [address] [place], [address], 11/14/2022 13:02:50 11/15/19 23 11/14/2022 COMPR EHENS MYCHAL METAB OLIC PANEL chloride 102 mmol/ L 98-107 Not Available [facility] (Lab) [address] [place], [address], 11/14/2022 13:02:50 11/15/19 23 11/14/2022 COMPR EHENS MYCHAL METAB OLIC PANEL carbon dioxide 30 mmol/ L 22-30 Not Available [facility] (Lab) [address] [place], [address], 11/14/2022 13:02:50 11/15/19 23 11/14/2022 COMPR EHENS MYCHAL METAB OLIC PANEL anion gap 12.2 mmol/ L 14-22 low Not Available [facility] (Lab) [address] [place], [address], 11/14/2022 13:02:50 11/15/19 23 11/14/2022 COMPR EHENS MYCHAL METAB OLIC PANEL glucose 94 mg/dL 70-99 Not Available [facility]Lab) [address] [facility] [place], [address], 11/14/2022 13:02:50 11/15/19 23 11/14/2022 COMPR EHENS MYCHAL METAB OLIC PANEL BUN 18 mg/dL 8-19 Not Available [facility] (Lab) [address] [place], [address], 11/14/2022 13:02:50 11/15/19 23 11/14/2022 COMPR EHENS MYCHAL METAB OLIC PANEL creatinine 1.61 mg/dL 0.66-1 .25 high Not Available [facility] (Lab) [address] [place], [address], 11/14/2022 13:02:50 11/15/19 23 11/14/2022 COMPR EHENS MYCHAL METAB OLIC PANEL GFR 42 Refer ence Range : [place] GFR Healt hy Adult : >60 mL/mi n/1.7 3 m2 Chron ic Kidne y Disea se: 15-60 mL/mi n/1.7 3 m2 Kidne y Failu re: <15/m L/min /1.73 m2 www.n iddk. nih.g ov The MDRD study equat ion has not been valid ated in child jake <18 years of age; pregn ant women ; the elder ly >85 years of age; or in some racia l or ethni c subgr oups, such as Hisvt nics. Outsi de the valid ated minesh eters , estim ated GFR is less accur ate, requi ring clini josiah judgm ent on a case- by-ca se basis . Clini josiah inter preta tion for other races and ages must be made by the clini kajal. The MDRD study equat ion has not been valid ated for the evalu ation of serum creat inine relat ed to nutri karlee l statu s or medic ation usage . For perso ns <18 years of age, a pedia tric GFR calcu lator is avail able on the [facility] websi te: https ://ww w.kid kuldip.luis judd/pr ofess ional s/kdo qi/gf r_cal culat or Not Available [facility] (Lab) [address] [place], [address], 11/14/2022 13:02:50 11/15/19 23 11/14/2022 COMPR EHENS MYCHAL METAB OLIC PANEL alkaline phosphatase 70 U/L 38-126 Not Available [facility] (Lab) [address] [place], [address], 11/14/2022 13:02:50 11/15/19 23 11/14/2022 COMPR EHENS MYCHAL METAB OLIC PANEL alanine aminotransfe rase 31 U/L 0-50 Not Available [facility] (Lab) [address] [place], [address], 11/14/2022 13:02:50 11/15/19 23 11/14/2022 COMPR EHENS MYCHAL METAB OLIC PANEL aspartate aminotransfe rase 32 U/L 15-46 Not Available [facility] (Lab) [address] [place], [address], 11/14/2022 13:02:50 11/15/19 23 11/14/2022 COMPR EHENS MYCHAL METAB OLIC PANEL bilirubin, total 0.80 mg/dL 0.20-1 .30 Not Available [facility] (Lab) [address] [place], [address], 11/14/2022 13:02:50 11/15/19 23 11/14/2022 COMPR EHENS MYCHAL METAB OLIC PANEL calcium 9.3 mg/dL 8.4-10 .2 Not Available [facility] (Lab) [address] [place], [address], 11/14/2022 13:02:50 11/15/19 23 11/14/2022 COMPR EHENS MYCHAL METAB OLIC PANEL total protein 7.1 g/dL 6.3-8. 2 Not Available [facility] (Lab) [address] [place], [address], 11/14/2022 13:02:50 11/15/19 23 11/14/2022 COMPR EHENS MYCHAL METAB OLIC PANEL albumin 4.2 g/dL 3.0-4. 4 Not Available [facility] (Lab) [address] [place], [address], 11/14/2022 13:02:50 11/15/1911/14/2022 COMPR EHENS MYCHAL METAB OLIC PANEL globulin 2.9 g/dL 2.6-4. 2 Not Available [facility] (Lab) [address] [place], [address], 11/14/2022 13:02:50 11/15/1911/14/2022 COMPR EHENS MYCHAL METAB OLIC PANEL A/G ratio 1.4 ratio 1.0-2. 0 Not Available [facility] (Lab) [address] [place], [address], 11/14/2022 13:02:50 Result Notes None recorded. Problems Name Problem SNOMED Code Status Onset Date Resolution Date Notes Provider Name and Address Organization Details Recorded Time Benign essential hypertensi on 2189409 Active Not Available [facility] 3 18:18:53 Venous insufficie ncy of lower limb 109444171 Active Not Available [facility] 3 18:18:53 Pure hyperchole sterolemia 831287868 Active Not Available [facility] 3 18:18:53 Knee pain Active Not Available [facility] 3 18:18:53 Dyslipidem ia 151890288 Active Not Available [facility] 3 18:18:53 Pernicious anemia 86801600 Completed Not Available [facility] 3 12:56:33 Pain in scrotum 44600417 Active 2017 Not Available [facility] 3 18:18:53 Vitamin D below reference range 635971682 Active 2017 Not Available [facility] 3 18:18:53 Hypokalemi a 15894674 Active 2021 Not Available [facility] 3 18:18:53 Benign prostatic hyperplasi a 414245235 Active 2021 Not Available [facility] 3 18:18:53 Gastroesop hageal reflux disease 587163072 Active 2021 Not Available [facility] 3 18:18:53 Problem Notes None recorded. Procedures Surgical History Date Name Laterality Status Provider Name and Address Organization Details Recorded Time excision of basal cell carcinoma completed Not Available [facility] 10/02/2022 12:53:21 Hernia Repair completed Not Available [facility] 10/02/2022 12:53:21 Imaging Results None recorded. Procedure Notes None recorded. Medical Equipment None Reported. Allergies Allergen ID Allergen Name Allergen Category Reaction Reaction Severity Criticality Documentation Date Start Date Code Code System Note Provider Name and Address Organization Details Recorded Time 82178 Product containin g penicilli n (product) medicatio n vomiting Not available Not available 10/02/2022 88520 8001 SNOMED Not Available [facility] 3 13:01:24 Medications Name Sig Start Date Stop Date Status Note LastModified by Organization Details LastModified Time latanopro st 0.005 % eye drops INSTILL 1 DROP IN BOTH EYES EVERY DAY AT BEDTIME 02/24 completed Not Available Not Available Not Available potassium chloride ER 10 mEq capsule,e xtended release Take 1 capsule every day by oral route. 11/13 completed Not Available Not Available Not Available carvedilo l 12.5 mg tablet TAKE 1 TABLET BY MOUTH EVERY DAY 2022 active Not Available Not Available Not Avai lable azithromy sandie 250 mg tablet TAKE 2 TABLETS (500 MG) BY ORAL ROUTE ONCE DAILY FOR 1 DAY THEN 1 TABLET (250 MG) BY ORAL ROUTE ONCE DAILY FOR 4 DAYS 11/13 completed Not Available Not Available Not Available pravastat in 40 mg tablet TAKE 1 TABLET BY MOUTH DAILY 2022 active Not Available Not Available Not Avai lable spironola ctone 25 mg-hydroc hlorothia zide 25 mg tablet 06/03 completed Not Available Not Available Not Available Tito Low Dose Aspirin 81 mg tablet,de layed release Take 1 tablet every day by oral route. 02/24 completed Not Available Not Available Not Available potassium chloride ER 10 mEq tablet,ex tended release TAKE 1 TABLET BY MOUTH EVERY DAY 2022 active Not Available Not Available Not Avai lable amlodipin e 5 mg tablet TAKE 1 TABLET BY MOUTH DAILY 2022 active Not Available Not Available Not Avai lable ciproflox acin 500 mg tablet 06/03 completed Not Available Not Available Not Available quinapril 40 mg tablet TAKE 1 TABLET BY MOUTH TWICE DAILY 08/01 completed changed to Lisinopr il due to backorde r Not Available Not Available Not Available potassium chloride ER 20 mEq tablet,ex tended release(p art/cryst ) 06/03 completed Not Available Not Available Not Available pantopraz ole 40 mg tablet,de layed release TAKE 1 TABLET BY MOUTH EVERY DAY 06/[address] [place] switched med to pepcid Not Available Not Available Not Available hydrochlo rothiazid e 12.5 mg capsule Take 1 capsule every day by oral route. 2014 active Not Available Not Available Not Avai lable diclofena c sodium 75 mg tablet,de layed release 11/13 completed Not Available Not Available Not Available quinapril 20 mg tablet TAKE 2 TABLETS BY MOUTH TWICE DAILY active Not Available Not Available No t Available furosemid e 20 mg tablet active Not Available Not Available Not Available ergocalci ferol (vitamin D2) 1,250 mcg (50,000 unit) capsule TAKE 1 CAPSULE BY MOUTH EVERY WEEK 04/24 completed Not Available Not Available Not Available Pepcid 20 mg tablet Take 1 tablet every day by oral route. 04/24 completed Not Available Not Available Not Available lisinopri l 40 mg tablet TAKE 1 TABLET BY MOUTH TWICE DAILY 02/24 completed Not Available Not Available Not Available finasteri de 5 mg tablet TAKE 1 TABLET BY MOUTH DAILY 02/24 completed Not Available Not Available Not Available potassium chloride ER 10 mEq tablet,ex tended release(p art/cryst ) TAKE 1 TABLET BY MOUTH EVERY DAY 01/10 completed Not Available Not Available Not Available Vitamin C TK 1T PO QD 04/24 completed Not Available Not Available Not Available milk thistle 04/24 completed Not Available Not Available Not Available vitamin E 04/24 completed Not Available Not Available Not Available vitamin B complex daily 04/24 completed Not Available Not Available Not Available Fish Oil 1200 mg bid 10/13 completed Not Available Not Available Not Available Brilliant 3 02/24 completed Not Available Not Available Not Available Tito Low Dose Aspirin 81mg 1T PO QD 03/01 completed dupl Not Available Not Available Not Available Multivita min 50 Plus 02/24 completed Not Available Not Available Not Available hydrochlo rothiazid e 12.5 mg tablet TAKE 1 TABLET BY MOUTH EVERY MORNING 2022 active Not Available Not Available Not Avai lable Flax, Fish and Borage Oil 400 mg-5 unit capsule Take 2 capsules every day by oral route. 10/24 completed Not Available Not Available Not Available B12 TK 1T PO QD 04/24 completed Not Available Not Available Not Available Fluvirin 0041-9109 45 mcg (15 mcg x 3)/0.5 mL intramusc ular suspensio n INJECT 0.5 ML INTRAMUS CULARLY DIRECTED . active Not Available Not Available No t Available Fluzone High-Dose 5550-4249 (PF) 180 mcg/0.5 mL intramusc ular syringe active Not Available Not Available Not Available Fluzone High-Dose (PF) 180 mcg/0.5 mL intramusc ular syringe ADM 0.5ML IM UTD 08/19 completed Not Available Not Available Not Available Fluzone High-Dose Quad (PF) 240 mcg/0.7 mL IM syringe active Not Available Not Available Not Available Vitals Date Recorded Body mass index (BMI) Body height Heart rate Body temperature Body weight Systolic And Diastolic Provider Name and Address Organization Details Last Updated DateTime 2 28.5 kg/m2 182.88 cm 60 /min 97 [degF] 94125.4 g 134/80 mm[Hg] Not Available [facility] 3 12:55:41 Date Recorded Body height Body mass index (BMI) Body weight Body temperature Heart rate Systolic And Diastolic Provider Name and Address Organization Details Last Updated DateTime 3 182.88 cm 28.2 kg/m2 57034.2 1 g 97.4 [degF] 60 /min 132/98 mm[Hg] RE Sanchez [facility] 3 14:04:43 Date Recorded Body mass index (BMI) Body height Heart rate Body temperature Body weight Systolic And Diastolic Provider Name and Address Organization Details Last Updated DateTime 2 28.8 kg/m2 182.88 cm 56 /min 96.7 [degF] 21265.5 8 g 138/80 mm[Hg] Not Available [facility] 3 12:55:41 Date Recorded Body height Body mass index (BMI) Body weight Body temperature Heart rate Systolic And Diastolic Provider Name and Address Organization Details Last Updated DateTime 3 182.88 cm 28.6 kg/m2 56888.9 9 g 98 [degF] 52 /min 142/92 mm[Hg] RE Sanchez [employer] 3 10:55:34 Date Recorded Body mass index (BMI) Body height Heart rate Body temperature Body weight Systolic And Diastolic Provider Name and Address Organization Details Last Updated DateTime 2 27.4 kg/m2 182.88 cm 55 /min 97.7 [degF] 27749.6 6 g 148/86 mm[Hg] Not Available [facility] 3 12:55:41 Social History Question Answer Notes LastModified by Organization Details LastModified Time Tobacco Smoking Status Never Smoker RE Callejas [employer] [facility] [employer] 04/24/2023 10:46:58 Do You Have An Advance Directive? No Information Provided To Patient. [id number] Information not available 10/02/2022 Do You Wear A Helmet When Biking? Yes Information not available 04/24/2023 Are You Blind Or Do You Have Difficulty Seeing? No Information not available 04/24/2023 What Is Your Level Of Caffeine Consumption? Occasional [id number] Information not available 10/02/2022 How Much Tobacco Do You Chew? None [id number] Information not available 10/02/2022 In The 14 Days Before Symptom Onset, Have You Had Close Contact With A Laboratory-conf irmed COVID-19 While That Case Was Ill? No Information not available 04/24/2023 In The 14 Days Before Symptom Onset, Have You Had Close Contact With A Person Who Is Under Investigation For COVID-19 While That Person Was Ill? No Information not available 04/24/2023 Are You Deaf Or Do You Have Serious Difficulty Hearing? Yes Bilateral Hearing Loss-hearing Aids Information not available 04/24/2023 What Type Of Diet Are You Following? REGULAR [id number] Information not available 10/02/2022 Which Illicit Or Recreational Drugs Have You Used? None Information not available 04/24/2023 What Is The Highest Grade Or Level Of School You Have Completed Or The Highest Degree You Have Received? [id number] Information not available 04/24/2023 Have There Been Any Changes To Your Family Or Social Situation? No Information not available 04/24/2023 What Is The Fluoride Status Of Your Home? Unknown Information not available 04/24/2023 Are There Any Guns Present In Your Home? No Information not available 04/24/2023 Do You Use Insect Repellent Routinely? No Information not available 04/24/2023 Where [facility] You Live? [facility] Information not available 04/24/2023 Do You Have A Medical Power Of Oilseed Meat Presser? No Information not available 04/24/2023 What Was The Date Of Your Most Recent Tobacco Screening? 04/24/2023 [email or web address] Information not available 04/24/2023 Have You Ever Been Counseled For Unhealthy Alcohol Use? No Information not available 04/24/2023 Do You Have Any Pets? Yes Information not available 04/24/2023 What Is Your Relationship Status? [id number] Information not available 10/02/2022 Do You Use Your Seat Belt Or Car Seat Routinely? Yes Information not available 04/24/2023 Do You Have Smoke And Carbon Monoxide Detectors In Your Home? Yes Information not available 04/24/2023 Are You Passively Exposed To Smoke? No Information not available 04/24/2023 Are There Any Smokers In Your House? No Information not available 04/24/2023 How Much Tobacco Do You Smoke? No [id number] Information not available 10/02/2022 What Types Of Sporting Activities Do You Participate In? None Information not available 04/24/2023 Do You Use Sunscreen Routinely? No Information not available 04/24/2023 Has Tobacco Cessation Counseling Been Provided? No Not Needed-never Smoked Information not available 04/24/2023 How Many Years Have You Smoked Tobacco? 0 Information not available 04/24/2023 Have You Recently Traveled Abroad? No Information not available 04/24/2023 Do You Have Difficulty Walking Or Climbing Stairs? No Information not available 04/24/2023 Do You Have Any Dietary Restrictions? No Information not available 04/24/2023 Sex: Male Functional Status Question Answer Note LastModified by [employer] ion Details LastModified Time Do you use any illicit or recreational drugs? No Information not available 04/24/2023 Do you or have you ever used any other forms of tobacco or nicotine? No Information not available 04/24/2023 What is your level of alcohol consumption? Occasional [id number] Information not available 10/02/2022 Do you or have you ever used smokeless tobacco? Never used smokeless tobacco [id number] Information not available 10/02/2022 Do you have transportation difficulties? No Information not available 04/24/2023 Are you able to walk independently without assistance or assistive devices? YESWOREST Information not available 04/24/2023 Do you have difficulty doing errands alone? No Information not available 04/24/2023 Are you able to care for yourself independently? Yes Information not available 04/24/2023 What is your occupation? retired Information not available 04/24/2023 Do you have difficulty dressing, bathing, grooming, or toileting? No Information not available 04/24/2023 Do you or have you ever used e-cigarettes or vape? Never used electronic cigarettes Information not available 04/24/2023 What is your exercise level? Moderate walks dog 1-1.5 miles everyday [id number] Information not available 10/02/2022 Mental Status Question Answer Note LastModified by Organizat ion Details LastModified Time Do you feel stressed (tense, restless, nervous, or anxious, or unable to sleep at night)? [id number] Information not available 04/24/2023 Do you have difficulty concentrating, remembering or making decisions? No Information no t available 04/24/2023 Family History Relationship Description Onset Age of this Age Resolved Age Notes LastModified by Organization Details LastModified Time Sister Dementia x4 -all are deceas ed cyahl Not available 04/24/2023 10:46:57 Father Cerebral arterioscler osis 63 cyahl Not available 2022 10:46:57 Mother Malignant neoplasm of duodenum cyahl Not available 2022 10:46:57 Unspecified Relation Family history of malignant neoplasm matern al side cyahl Not available 04/24/2023 10:46:57 Brother Heart disease deceas ed [id number] Not available 10/02/2022 12:53:22 Medical History Condition Response CHEST XRAY N KIDNEY STONES N MRSA N CARPAL TUNNEL SYNDROME N HISTORY OF DRUG ABUSE N RADIATION / CHEMOTHERAPY N COPD N BLOOD DISEASES N SURGERY N MUMPS N BOWEL PROBLEMS N FAILED BACK SYNDROME N STROKE/TIA N THYROID DISEASE N LYMPHEDEMA N ULCERS N OTHER MODALITIES N CERVICALGIA N TB SKIN TEST N MYOCARDIAL INFARCTION N PARAPELGIA N OBESITY N URINARY/BLADDER/KIDNEY PROBLEMS N Increased Urination N INPATIENT PSYCH CARE N CORONARY ARTERY DISEASE (CAD) N MENIERE'S DISEASE N CAROTID STENOSIS N ADDICTION CONCERNS N Impotence N ENDOMETRIOSIS N PARATHYROID DISEASE N PERIPHERAL VASCULAR DISEASE N MUSCLE,JOINT OR BONE PROBLEMS N DVT N STOMACH ULCERS N GASTROINTESTINAL BLEEDING N BLOOD CLOTS N PAST HISTORY OF VEHICULAR ACCIDENT N Difficulty Urinating N ASTHMA N USE OF NSAIDS N ARTERIAL INSUFFICIENCY N GI PROBLEMS N CHF N Low Testosterone N VISION/EYE PROBLEMS N MALE HYPOGONADISM N TOURETTE'S N ANXIETY DISORDER N CHRONIC EAR INFECTIONS N BIPOLAR DISORDER N CONDUCT DISORDER N OSTEOARTHRITIS N TUBERCULOSIS N DIVERTICULITIS N SLEEP APNEA N ALLERGIES/HAYFEVER N PROSTATE Y HEART ARRHYTHMIA N INSOMNIA N PAST MEDICATION HISTORY N EYE PROBLEMS N EDEMA N HYPOTHYROIDISM N CONSTIPATION N CAROTID BLOCKAGE N MOOD DISORDER N BACK / NECK PROBLEMS Y MIGRAINES N BREAST PROBLEMS N POLYCYSTIC OVARIES N FIBROMYALGIA N OSTEOPOROSIS N PERIPHERAL NEUROPATHY N APPENDICITIS N VON WILLIBRAND'S DISEASE N SEASONAL ALLERGIES N HEARTBURN / REFLUX Y PLEURISY N AFIB N ADD/ADHD N Bronchoscopy N AUTISM SPECTRUM DISORDER (ASD) N SLEEP DISORDER N RETINOPATHY N HEADACHES/MIGRAINES N SLEEP STUDY N VASCULAR DISEASE N Blood Disorder N HEART DISEASE/HEART PROBLEMS N MULTIPLE SCLEROSIS N DEVELOPMENTAL OR BEHAVIORAL DISORDERS N CLAUDICATION N PULMONARY FUNCTION TEST N ANESTHESIA COMPLICATIONS N Gall Stones N ATRIAL FIBRILLATION N PULMONARY EMBOLISM N AUTOIMMUNE DISEASE N NERVE DISEASE N BLINDNESS N RHEUMATIC FEVER N BLADDER PROBLEMS N Enlarged Prostate N OTHER # 1 Y POLIO N LUNG DISEASE/DISORDER N Other # 2 N EAR OR HEARING PROBLEMS N PAST SPINAL SURGERY N SCHIZOPHRENIA N FEMALE PROBLEMS / INFECTIONS N DEPRESSION (INCLUDING POST ) N CHEST CT N RENAL INSUFFICIENCY N BENIGN PROSTATIC HYPERPLASIA N MEASLES N HYPOTENSION N GERD/NAUSEA N EXCESSIVE PERSPIRATION N ANEURYSM N USE OF BLOOD THINNERS N SKIN PROBLEMS N EMPHYSEMA N SHORTNESS OF BREATH N GASTROINTESTINAL DISORDER N PTSD N CATARACTS N CONCUSSION OR SPINAL TRAUMA N ERECTILE DYSFUNCTION N VARICOSITIES N NEUROPATHY N INFERTILITY N AIDS/HIV N FRACTURES N CHEMOTHERAPY / RADIATION N LIVER DISEASE N HYPERTENSION Y Deficiency Y Metal allergy N BLOOD TRANSFUSION N ANEMIA/BLOOD DISORDER N BRONCHITIS N GLAUCOMA N FOOT PROBLEM N HEART VALVE DISORDERS N CHICKENPOX N BACK INJECTIONS N INFECTIOUS DISEASE N ESRD N PAST INTERVENTIONAL PAIN MANAGEMENT HIST ORY N RHEUMATOID ARTHRITIS N HIGH CHOLESTEROL / HYPERLIPIDEMIA Y HYPERTHYROIDISM N UTI N PVD N EATING DISORDER N NEUROLOGICAL PROBLEMS N CHRONIC PAIN SYNDROME N ATHEROSCLEROSIS N BURSITIS N HERNIATED DISC N DIALYSIS N ECZEMA N HISTORY WITH COMPLICATIONS WITH ANESTHES IA ? N PSYCHOSIS N ARTHRITIS N RESPIRATORY PROBLEMS N PAST HISTORY OF FALL N DIABETES, TYPE N BAD TEETH N ENT N POST LAMINECTOMY SYNDROME N HEPATITIS / LIVER DISEASE N PULMONARY DISEASE N GOUT N ALZHEIMER'S DISEASE N PAIN N FATIGUE N Brain Problems N HERPES N DEMENTIA N SEIZURES/EPILEPSY N PACEMAKER N DIZZINESS N HEAD TRAUMA OR INJURY N KIDNEY DISEASE N SCARLET FEVER N MENTAL DISORDER/ILLNESS N NEUROPSYCHOLOGICAL N CARDIAC ARRHYTHMIA N CANCER: SPECIFY Y PNEUMONIA N Immunizations Vaccine Type Date Status Note Provider Nam e and Address Organization Details Recorded Time Influenza, high-dose, quadrivalent, PF 3 completed Not Available [facility] 07/15/2023 00:00:39 COVID-19, mRNA, LNP-S, PF, 100 mcg/0.5mL dose or 50 mcg/0.25mL dose 3 completed Not Available [facility] 07/15/2023 00:00:39 COVID-19, mRNA, LNP-S, PF, 30 mcg/0.3 mL dose 2 completed Not Available [facility] 07/15/2023 00:00:39 Influenza, high-dose, quadrivalent, PF 1 completed Not Available [facility] 07/15/2023 00:00:39 Influenza, high-dose, quadrivalent, PF 0 completed Not Available [facility] 07/15/2023 00:00:39 Influenza, high-dose, quadrivalent, PF 9 completed Not Available [facility] 07/15/2023 00:00:39 Influenza, high-dose, trivalent, PF 7 completed Not Available [facility] 07/15/2023 00:00:39 COVID-19, mRNA, LNP-S, PF, 30 mcg/0.3 mL dose 1 completed Not Available [facility] 07/15/2023 00:00:39 COVID-19 vaccine, vector-nr, [id number], PF, 0.5 mL 1 completed Not Available [facility] 07/15/2023 00:00:39 Influenza, split virus, quadrivalent, preservative 8 completed Not Available [facility] 07/15/2023 00:00:39 influenza, unspecified formulation 7 completed Not Available [facility] 07/15/2023 00:00:39 influenza, unspecified formulation 6 completed Not Available [facility] 07/15/2023 00:00:39 Tdap 6 completed Not Available [facility] 07/15/2023 00:00:39 Influenza, split virus, trivalent, preservative 4 completed Not Available [facility] 07/15/2023 00:00:40 influenza, unspecified formulation 4 completed Not Available [facility] 07/15/2023 00:00:39 Pneumococcal conjugate PCV 13 9 completed Not Available [facility] 07/15/2023 00:00:39 Influenza, high-dose, trivalent, PF 8 completed Not Available [facility] 07/15/2023 00:00:40 pneumococcal polysaccharide PPV23 7 completed Not Available [facility] 07/15/2023 00:00:39 Influenza, high-dose, trivalent, PF 6 completed Not Available [facility] 07/15/2023 00:00:40 Td (adult), 5 Lf tetanus toxoid, preservative free, adsorbed 6 completed Not Available [facility] 07/15/2023 00:00:40 Influenza, split virus, quadrivalent, PF 5 completed Not Available [facility] 07/15/2023 00:00:40 Influenza, split virus, trivalent, preservative 3 completed Not Available [facility] 07/15/2023 00:00:40 Past Encounters Encounter ID Performer Location Encounter Start Date Encounter Closed Date Diagnosis/Indication Diagnosis SNOMED-CT Code Diagnosis ICD10 Code Diagnosis IMO Codes Diagnosis Note [id number] Jorge Luis South MD [facility] Internal Med Brian parker [address] [place] [address] [place] [address] [address] 10/24/2020 00:00:00 10/24/2020 20:49:07 [id number] Jorge Luis South MD [facility] Internal Med Brian llfrancesco [address] [place] [address] [place] [address] 03/01/2021 00:00:00 03/01/2021 10:44:56 [id number] Jorge Luis South MD [facility] Internal Med Brian parker [address] [place] [address] [place] [address] [address] 08/23/2021 00:00:00 08/23/2021 21:45:00 [id number] Jorge Luis South MD [facility] Internal Med Brian parker [address] [place] [address] [place] [address] 01/10/2022 00:00:00 01/10/2022 10:45:26 [id number] Jorge Luis South MD [facility] Internal [address] , [place] [address] 05/14/2022 00:00:00 05/19/2022 15:55:08 [id number] Jorge Luis South MD [facility] Internal [address] , [place] [address] 10/17/2022 13:44:08 10/17/2022 14:49:16 Benign essential hypertension 2798952 I10 Hypokalemia 41909453 E87 .6 Dyslipidemia 442505189 E 78.5 Gastroesop hageal reflux disease 620729745 K21.9 [id number] Jorge Luis South MD [facility] Internal [facility] [address] , [place] [address] 04/24/2023 10:46:19 04/24/2023 12:03:10 Hypokalemia 06038262 E87.6 Vitamin D below reference range 234222552 E55.9 Benign ess ential hypertension 7341388 I10 Benign pro static hyperplasia 550853553 N40.0 Dyslipidemia 203106408 E 78.5 Gastroesop hageal reflux disease 889932598 K21.9 Health Concerns Section Related Observation LastModified by Organization Detai ls LastModified Time None Recorded Concern Status LastModified by Organization Details LastModified Time None Recorded Advance Directives Directive N: Information provided to p ivan. Payers Insurance Date Sequence Insurance Name Policy Number Policy [place] Covered Member ID [place] Member ID Guarantor Name 04/24/2023 1 [facility] - MEDICARE COMPLETE PLAN 4 (MEDICARE REPLACEMENT - HMO) [id number] Kartik Reardon [id number] Kartik Weston Notes Date Note Type Note Provider Name and Address Organization Details Recorded Time 10/17/2022 text/html Hypertension blood pressure up a little bitDyslipidemia could do better with dietGERD no nausea vomitingVenous stasis stableHypokalemia on replacement Jorge Luis South MD [address], [place], [address], [facility] [employer] website [facility] [employer] [facility] 10/17/2022 22:58:04 04/24/2023 text/html Hypertension blood pressure up a little bitDyslipidemia could do better with dietGERD no nausea vomitingVenous stasis stableHypokalemia on replacement Jorge Luis South MD [address], [place], [address], [employer] [facility] [employer] [facility] 04/25/2023 08:59:12
--- OUTSIDE RECORDS SUMMARY | 2025-06-16 14:06 | XMS_ITS | Encounter Summary ---
Author Organization [facility] Address [address] [place] [address] Care Team Providers Care Architect Intern Name Role Phone Unavailable Primary Care Provider Unavailabl e Encounter Details Date Type Department Care Team (Late st Contact Info) Description 08/25/2024 Lab Requisition [facility] - DermPath Lab [address], [place] [address] Maya Barnett MD [address] [place] [address] [place] [address] Other follicular cysts of the skin and subcutaneous tissue; Other disturbances of skin sensation Social History Tobacco Use Types Packs/Day Years Used Date Smoking Tobacco: Never Assessed Sex and Gender Information Value Date Recorded Sex Assigned at Not on file Legal Sex Male 9:51 AM CDT Gender Identity Not on file Sexual Orientation Not on file documented as of this encounter Plan of Treatment Not on file documented as of this encounter Procedures Procedure Name Priority Date/Time Associated Diagnosis Comments DERMATOPATHOLOGY Routine 08/25/2024 3:33 AM [facility] INTERN Other follicular cysts of the skin and subcutaneous tissue Other disturbances of skin sensation documented in this encounter Results * DERMATOPATHOLOGY (08/25/2024 3:33 AM [facility] AFFAIRS INTERN) Case Report Dermatopathology Report Case: [id number] Authorizing Provider: Maay Barnett MD Collected: 08/25/2024 03:33 AM Ordering Location: [facility] - Received: 08/26/2024 12:47 PM DermPath Lab Pathologist: Kim Taveras MD Specimen: Skin, upper back 2:52 PM [facility] INTERN DERMATOPATHOLOGY LABORATORY Final Diagnosis Specimen A. SKIN, upper back: EPIDERMOID CYST WITH EVIDENCE OF RUPTURE (L72.0) 2:52 PM [facility] DERMATOPATHOLOGY LABORATORY at 1452 [facility] INTERN Clinical History Cyst 2:52 PM [facility] DERMATOPATHOLOGY LABORATORY Gross Description Specimen A: Received is one formalin filled container labeled with the patient's name and designated upper back. The specimen consists of a [id number] mm piece of skin. The specimen is serially sectioned and a nutrition representative section is submitted in cassette 1. Jar 1. 2:52 PM [facility] DERMATOPATHOLOGY LABORATORY Microscopic Description Specimen A. SKIN, upper back: Within the dermis, there is a space lined by epithelium that resembles normal epidermis and the infundibular portion of the hair follicle. Surrounding this is an infiltrate with neutrophils, histiocytes, and multinucleated giant cells. 2:52 PM [facility] DERMATOPATHOLOGY LABORATORY Disclaimer An external and internal positive and negative controls are appropriate for the histochemical, immunohistochemical and immunofluorescence stain(s) in this case (if any), except where stated explicitly. The performance characteristics of the stain(s) cited in this report were developed and its performance characteristic determined by the Dermatopathology Laboratory at [facility], directed by Dr. Elvira Rios. These tests need not be, and therefore are not, approved by the [place] Food and Drug Administration. The tests are used for clinical purposes. Billing Codes Specimen Charges Stain Charges 89017 1 2:52 PM [facility] DERMATOPATHOLOGY LABORATORY Embedded Images 2:52 PM [facility] DERMATOPATHOLOGY LABORATORY Pathology/Cytolo gy TISSUE SPECIMEN FROM SKIN / Unknown 08/25/2024 3:33 AM [facility]ORY AFFAIRS INTERN 08/26/2024 12:47 PM [facility] us Maya Barnett MD LAB - PATHOLOGY/CYTOLOGY ORDERAB LES Final Result DERMATOPATHOLOGY LABORATORY [facility] - Department of Dermatology [address] [phone] documented in this encounter Visit Diagnoses Diagnosis Other follicular cysts of the skin and subcutaneous tissue Other disturbances of skin sensation documented in this encounter
--- OUTSIDE RECORDS SUMMARY | 2025-06-16 14:06 | XMS_ITS | Continuity of Care Document ---
Author Organization [place] - [facility], [facility] Address [address] [facility] [address] [place] [address] Assessment No assessment recorded. Plan of Treatment Reminders Order Date Submit Date Provider Last Modified By Organization Details Last Modified Time Details Appointments Follow Up 15 2025 09:15A M Pastor Rossi MD Not available Not available Not available Lab uric acid, serum or plasma 2024 025 TATE Choudhary, [address], [address], [place], [address], 05/13/2025 12:08:17 PSA, total, serum or plasma 2024 025 TATE Choudhary, [address], [address], [place], [address], 05/13/2025 12:08:17 HbA1c (hemoglob in A1c), blood 2024 025 TATE Choudhary, [address], [address], [place], [address], 05/13/2025 12:08:16 lipid panel, serum 2024 025 TATE Choudhary, 2022 [address], [address], [place], [address], 05/13/2025 12:08:15 PTH (parathyr oid hormone), intact, serum or plasma 2024 025 TATE Choudhary, 2022 [address], [address], [place], [address], 05/13/2025 12:08:18 microalbu min/creat inine, mass ratio, urine 2024 [facility], [address], [address], [place], [address], 05/13/2025 12:08:16 CBC w/ auto diff 2024 [facility], [address], [address], [place], [address], 05/13/2025 12:08:14 renal function panel, serum 2024 [facility], [address], [address], [place], [address], 05/13/2025 12:08:15 TSH, ultra-sen sitive, serum 2024 [facility], [address], [address], [place], [address], 05/13/2025 12:08:17 CMP, serum or plasma 2024 025 [facility], [address], [address], [place], [address], 05/13/2025 12:08:14 Referral None recorded. Procedures None recorded. Surgeries None recorded. Imaging XR, ankle, 3 or more view 2024 [facility] Not available 05/25/2025 04:06:23 ankle brachial index 2024 [facility] [address] [place] [address], [place], [address], 05/18/2025 04:03:53 US, duplex, venous, lower extremity [address] ([facility]), [facility] [address], [place], [address], 05/23/2025 12:50:06 Medication Orders doxycycli ne hyclate 100 mg capsule 2024 [id number], [address], [place], [place], [id number], 05/25/2025 05:01:31 fluticaso ne propionat e 50 mcg/actua tion nasal spray,ansley pension 2024 [id number], [address], [place], [place], [id number], 05/11/2025 14:53:50 Patient TargetsNo targets recorded. Patient Instructions Encounter Date Encounter Id Patient Instructions Last Modified By Organization Details Last Modified Time 05/11/2025 [id number] back care and preventing injuries: care instructions [email or web address] Not available 05/11/2025 14:53:41 getting back to normal after low back pain: care instructions [email or web address] Not available 05/11/2025 14:53:41 learning about relief for back pain [email or web address] Not available 05/11/2025 14:53:40 high cholesterol : care instructions [email or web address] Not available 05/11/2025 14:53:41 When You Want to Lose Weight: Care Instructions [email or web address] Not available 05/11/2025 14:53:41 I spent a total of _36 minutes (excluding separately reportable procedure time ) in care of this patient. [email or web address] Not available 05/11/2025 18:19:01 Reason for Referral None Reported. Results Created Date Observation Date Name Description Value Unit Range Abnormal Flag Note LastModifiedBy Organization Detail LastModifiedTime 05/12/2005/13/2025 CMP14 +EGFR glucose 99 mg/dL 70-99 normal Not Available [facility] ([facility]) [address], [place], [address], 05/13/2025 12:08:13 05/12/2005/1305/13/2025 CMP14 +EGFR BUN 14 mg/dL 8-27 normal Not Available [facility] ([facility]) [address] [place], [address], 05/13/2025 12:08:13 05/12/2005/13/2025 CMP14 +EGFR creatinine 1.47 mg/dL 0.76-1 .27 above high normal Not Available [facility] ([facility]) [address] [place], [address], 05/13/2025 12:08:13 05/12/2005/13/2025 CMP14 +EGFR eGFR 48 mL/mi n/1.7 3 >59 below low normal Not Available [facility] ([facility]) [address] [place], [address], 05/13/2025 12:08:13 05/12/2005/13/2025 CMP14 +EGFR BUN/creatini ne ratio 10 10-24 normal Not Available [facility]) [address] [place], [address], 05/13/2025 12:08:13 05/12/2005/13/2025 CMP14 +EGFR sodium 143 mmol/ L 134-14 4 normal Not Available [facility] ([facility]) [address] [place], [address], 05/13/2025 12:08:13 05/12/2005/13/2025 CMP14 +EGFR potassium 4.0 mmol/ L 3.5-5. 2 normal Not Available [facility] ([facility]) [address] [place], [address], 05/13/2025 12:08:13 05/12/2005/13/2025 CMP14 +EGFR chloride 104 mmol/ L 96-106 normal Not Available [facility] ([facility]) [address] [place], [address], 05/13/2025 12:08:13 05/12/2005/13/2025 CMP14 +EGFR carbon dioxide, total 25 mmol/ L 20-29 normal Not Available [facility] ([facility]) [address] [place], [address], 05/13/2025 12:08:13 05/12/2005/13/2025 CMP14 +EGFR calcium 9.2 mg/dL 8.6-10 .2 normal Not Available [facility] ([facility]) [address] [place], [address], 05/13/2025 12:08:13 05/12/2005/13/2025 CMP14 +EGFR protein, total 7.0 g/dL 6.0-8. 5 normal Not Available [facility] ([facility]) [address] [place], [address], 05/13/2025 12:08:13 05/12/2005/13/2025 CMP14 +EGFR albumin 4.5 g/dL 3.8-4. 8 normal Not Available [facility] ([facility]) [address] [place], [address], 05/13/2025 12:08:13 05/12/2005/13/2025 CMP14 +EGFR globulin, total 2.5 g/dL 1.5-4. 5 Not Available [facility] ([facility]) [address] [place], [address], 05/13/2025 12:08:13 05/12/2005/13/2025 CMP14 +EGFR bilirubin, total 0.7 mg/dL 0.0-1. 2 normal Not Available [facility] ([facility]) [address] [place], [address], 05/13/2025 12:08:13 05/12/20 25 05/13/2025 CMP14 +EGFR alkaline phosphatase 84 IU/L 47-123 normal Not Available [facility] [address] [facility], [place], [address], 05/13/2025 12:08:13 05/12/2005/13/2025 CMP14 +EGFR AST (SGOT) 19 IU/L 0-40 normal Not Available [facility] ([facility]) [address] [facility], [place], [address], 05/13/2025 12:08:13 05/12/2005/13/2025 CMP14 +EGFR ALT (SGPT) 18 IU/L 0-44 normal Not Available [facility] ([facility]) [address] [facility], [place], [address], 05/13/2025 12:08:13 05/12/2005/13/2025 CBC WITH DIFFE RENTI AL/PL ATELE T WBC 10.2 x10e3 /uL 3.4-10 .8 normal Not Available [facility] ([facility]) [address] [place], [address], 05/13/2025 12:08:14 05/12/2005/13/2025 CBC WITH DIFFE RENTI AL/PL ATELE T RBC 5.17 x10e6 /uL 4.14-5 .80 normal Not Available [facility] ([facility]) [address] [place], [address], 05/13/2025 12:08:14 05/12/2005/13/2025 CBC WITH DIFFE RENTI AL/PL ATELE T hemoglobin 15.8 g/dL 13.0-1 7.7 normal Not Available [facility] ([facility]) [address] [place], [address], 05/13/2025 12:08:14 05/12/20 25 05/13/2025 CBC WITH DIFFE RENTI AL/PL ATELE T hematocrit 47.4 % 37.5-5 1.0 normal Not Available [facility] ([facility]) [address] [facility], [place], [address], 05/13/2025 12:08:14 05/12/2005/13/2025 CBC WITH DIFFE RENTI AL/PL ATELE T MCV 92 fL 79-97 normal Not Available [facility] ([facility]) [address] [facility], [place], [address], 05/13/2025 12:08:14 05/12/20 25 05/13/2025 CBC WITH DIFFE RENTI AL/PL ATELE T MCH 30.6 pg 26.6-3 3.0 normal Not Available [facility] ([facility]) [address] [facility], [place], [address], 05/13/2025 12:08:14 05/12/20 25 05/13/2025 CBC WITH DIFFE RENTI AL/PL ATELE T MCHC 33.3 g/dL 31.5-3 5.7 normal Not Available [facility] ([facility]) [address] [facility], [place], [address], 05/13/2025 12:08:14 05/12/20 25 05/13/2025 CBC WITH DIFFE RENTI AL/PL ATELE T RDW 13.1 % 11.6-1 5.4 Not Available [facility] ([facility]) [address] [facility], [place], [address], 05/13/2025 12:08:14 05/12/20 25 05/13/2025 CBC WITH DIFFE RENTI AL/PL ATELE T platelets 186 x10e3 /uL 150-45 0 normal Not Available [facility] ([facility]) [address] [place], [address], 05/13/2025 12:08:14 05/12/20 25 05/13/2025 CBC WITH DIFFE RENTI AL/PL ATELE T neutrophils 73 % not estab. normal Not Available [facility] ([facility]) [address], [place], [address], 05/13/2025 12:08:14 05/12/20 25 05/13/2025 CBC WITH DIFFE RENTI AL/PL ATELE T lymphs 20 % not estab. normal Not Available [facility] ([facility]) [address] [facility], [place], [address], 05/13/2025 12:08:14 05/12/20 25 05/13/2025 CBC WITH DIFFE RENTI AL/PL ATELE T monocytes 4 % not estab. normal Not Available [facility] ([facility]) [address] [facility], [place], [address], 05/13/2025 12:08:14 05/12/20 25 05/13/2025 CBC WITH DIFFE RENTI AL/PL ATELE T eos 2 % not estab. normal Not Available [facility] ([facility]) [address] [facility], [place], [address], 05/13/2025 12:08:14 05/12/20 25 05/13/2025 CBC WITH DIFFE RENTI AL/PL ATELE T basos 1 % not estab. normal Not Available [facility] ([facility]) [address] [facility], [place], [address], 05/13/2025 12:08:14 05/12/20 25 05/13/2025 CBC WITH DIFFE RENTI AL/PL ATELE T immature cells GRILL ATTENDANT Not Available [facility] ([facility]) [address] [facility], [place], [address], 05/13/2025 12:08:14 05/12/20 25 05/13/2025 CBC WITH DIFFE RENTI AL/PL ATELE T neutrophils (absolute) 7.4 x10e3 /uL 1.4-7. 0 above high normal Not Available [facility] ([facility]) [address] [facility], [place], [address], 05/13/2025 12:08:14 05/12/20 25 05/13/2025 CBC WITH DIFFE RENTI AL/PL ATELE T lymphs (absolute) 2.0 x10e3 /uL 0.7-3. 1 normal Not Available [facility] ([facility]) [address] [facility], [place], [address], 05/13/2025 12:08:14 05/12/20 25 05/13/2025 CBC WITH DIFFE RENTI AL/PL ATELE T monocytes(ab solute) 0.4 x10e3 /uL 0.1-0. 9 normal Not Available [facility] ([facility]) [address] [facility], [place], [address], 05/13/2025 12:08:14 05/12/20 25 05/13/2025 CBC WITH DIFFE RENTI AL/PL ATELE T eos (absolute) 0.2 x10e3 /uL 0.0-0. 4 normal Not Available [facility] ([facility]) [address] [facility], [place], [address], 05/13/2025 12:08:14 05/12/20 25 05/13/2025 CBC WITH DIFFE RENTI AL/PL ATELE T baso (absolute) 0.1 x10e3 /uL 0.0-0. 2 normal Not Available [facility] ([facility]) [address] [facility], [place], [address], 05/13/2025 12:08:14 05/12/20 25 05/13/2025 CBC WITH DIFFE RENTI AL/PL ATELE T immature granulocytes 0 % not estab. Not Available [facility] ([facility]) [address] [facility], [place], [address], 05/13/2025 12:08:14 05/12/20 25 05/13/2025 CBC WITH DIFFE RENTI AL/PL ATELE T immature grans (abs) 0.0 x10e3 /uL 0.0-0. 1 Not Available [facility] ([facility]) [address] [facility], [place], [address], 05/13/2025 12:08:14 05/12/20 25 05/13/2025 CBC WITH DIFFE RENTI AL/PL ATELE T NRBC GRILL ATTENDANT Not Available [facility] ([facility]) [address] [facility], [place], [address], 05/13/2025 12:08:14 05/12/20 25 05/13/2025 CBC WITH DIFFE RENTI AL/PL ATELE T hematology comments: GRILL ATTENDANT Not Available [facility]) [address] [facility], [place], [address], 05/13/2025 12:08:14 05/12/20 25 05/13/2025 RENAL PANEL (10) phosphorus 3.1 mg/dL 2.8-4. 1 normal Not Available [facility] ([facility]) [address] [facility], [place], [address], 05/13/2025 12:08:15 05/12/20 25 05/13/2025 LIPID PANEL cholesterol, total 181 mg/dL 100-19 9 normal Not Available [facility] ([facility]) [address] [facility], [place], [address], 05/13/2025 12:08:15 05/12/20 25 05/13/2025 LIPID PANEL triglyceride s 141 mg/dL 0-149 normal Not Available [facility] [address] [facility], [place], [address], 05/13/2025 12:08:15 05/12/20 25 05/13/2025 LIPID PANEL HDL cholesterol 42 mg/dL >39 normal Not Available [facility] [address] [facility], [place], [address], 05/13/2025 12:08:15 05/12/20 25 05/13/2025 LIPID PANEL VLDL cholesterol josiah 25 mg/dL 5-40 Not Available [facility]) [address] [facility], [place], [address], 05/13/2025 12:08:15 05/12/20 25 05/13/2025 LIPID PANEL LDL chol calc ([facility]) 114 mg/dL 0-99 above high normal Not Available [facility]) [address] [facility], [place], [address], 05/13/2025 12:08:15 05/12/20 25 05/13/2025 LIPID PANEL LDL calc comment: GRILL ATTENDANT Not Available [facility]) [address] [facility], [place], [address], 05/13/2025 12:08:15 05/12/20 25 05/13/2025 ALBUM IN/CR EAT RATIO , RANDO M UR creatinine, urine 86.5 mg/dL not estab. normal Not Available [facility] ([facility]) [address] [facility], [place], [address], 05/13/2025 12:08:15 05/12/2005/13/2025 ALBUM IN/CR EAT RATIO , RANDO M UR albumin, urine 40.0 ug/mL not estab. Not Available [facility] ([facility]) [address] [facility], [place], [address], 05/13/2025 12:08:15 05/12/2005/13/2025 ALBUM IN/CR EAT RATIO , RANDO M UR alb/creat ratio 46 mg/g_ creat 0-29 above high normal Kendra l: 0 - 29 Moder ately incre ased: 30 - 300 Sever katheryn incre ased: >300 Not Available [facility] ([facility]) [address] [facility], [place], [address], 05/13/2025 12:08:15 05/12/20 25 05/13/2025 HEMOG LOBIN A1C hemoglobin A1C 5.6 % 4.8-5. 6 normal Predi abete s: 5.7 - 6.4 Diabe ivette: >6.4 Glyce anel contr ol for adult s with diabe ivette: <7.0 Not Available [facility] ([facility]) [address] [facility], [place], [address], 05/13/2025 12:08:16 05/12/2005/13/2025 TSH TSH 1.590 uIU/m L 0.450- 4.500 normal Not Available [facility] ([facility]) [address] [facility], [place], [address], 05/13/2025 12:08:16 05/12/2005/13/2025 PROST ATE-S PECIF IC AG prostate specific [...] kits canno t be used inter bowles eaquentiny . Resul ts canno t be inter prete d as absol [place] evide nce of the prese nce or absen ce of jermain welch se. Not Available [facility] ([facility]) [address] [facility], [place], [address], 05/13/2025 12:08:17 05/12/2005/13/2025 URIC ACID uric acid 4.7 mg/dL 3.8-8. 4 normal Thera peuti c targe t for gout patie nts: <6.0 Not Available [facility] ([facility]) [address] [place], [address], 05/13/2025 12:08:17 05/12/20 25 05/13/2025 PTH, INTAC T PTH, intact 45 pg/mL 15-65 normal Not Available [facility]) [address] [facility], [place], [address], 05/13/2025 12:08:18 Result Notes None recorded. Problems Name Problem SNOMED Code Status Onset Date Resolution Date Notes Provider Name and Address Organization Details Recorded Time Essential hypertensio n 85563490 Active 2023 Pastor Rossi MD [address], [place], [address], [facility] 18:18:17 Benign prostatic hyperplasia without outflow obstruction 415510372 Active 2023 Pastor Rossi MD [address], [place], [address], [facility] 18:18:17 Hyperlipide enoc 68789457 Active 2023 Pastor Rossi MD [address], [place], [address], [facility] 18:18:17 Obesity 575258879 Active 2023 Pastor Rossi MD [address], [place], [address], [facility] 18:18:17 Chronic kidney disease 396436915 Active 2023 Pastor Rossi MD [address], [place], [address], [facility] 18:18:17 Low back pain 948366761 Active 2023 Pastor Rossi MD [address], [place], [address], [facility] 18:18:17 Pain of left elbow joint 4580435203169 9104 Active 2024 Pastor Rossi MD [address], [place], [address], [facility] 5 10:15:47 Intermitten t vertigo 687762552 Active 2024 Pastor Rossi MD [address], [place], [address], [facility] 5 10:43:23 Acute bacterial sinusitis 44102738 Active 2024 Pastor Rossi MD [address], [place], [address], [facility] 5 14:45:00 Chronic ankle pain 7433557585859 9 Active 2024 Pastor Rossi MD [address] [facility] [address], [place], [address], [facility] 5 14:48:28 Prediabetes 273989076 Active 2024 Pastor Rossi MD [address] [facility] [address], [place], [address], [facility] 5 14:52:35 Acute bacterial bronchitis 148914500 Active 2024 Pastor Rossi MD [address] [facility] [address], [place], [address], [facility] 5 10:20:55 Peripheral vascular disease 706747178 Active 2024 Pastor Rossi MD [address] [facility] [address], [place], [address], [facility] 5 10:32:01 Problem Notes None recorded. Procedures Surgical History Date Name Laterality Status Provider Name and Address Organization Details Recorded Time excision of skin cyst completed Pastor Rossi MD [address], [place], [address], [facility] 09/01/2024 10:09:38 0 hernia repair completed Pastor Rossi MD [address] [facility] [address], [place], [address], [facility] 08/26/2023 11:16:06 excision of basal cell carcinoma completed Pastor Rossi MD [address] [facility] [address], [place], [address], [facility] 08/26/2023 11:16:56 Imaging Results None recorded. Procedure Notes None recorded. Medical Equipment None Reported. Allergies Allergen ID Allergen Name Allergen Category Reaction Reaction Severity Criticality Documentation Date Start Date Code Code System Note Provider Name and Address Organization Details Recorded Time 1441 Product containin g penicilli n (product) medicatio n vomiting Not available high 08/26/2023 60308 8001 SNOMED Alena Foote [facility] 10:41:33 Medications Name Sig Start Date Stop [...] propionate 50 mcg/actuati on nasal spray,suspe nsion Hartman 1 spray twice a day by intranasa [...] Details Last Updated DateTime 5 175.26 cm 98.6 [degF] 30.4 kg/m2 20525.0 3 g 68 /min 18 /min 97 % 97 % 140/72 mm[Hg] Alena Foote [facility] 5 14:26:45 Social History None recorded. Functional Status None [...] tetanus toxoid, unspecified formulation 2 completed [facility] 10:43:49 influenza, unspecified formulation 3 completed [facility] 08/26/2023 10:44:14 Influenza, high-dose, quadrivalent, PF 3 completed [facility] 09/23/2023 14:28:19 Influenza, high-dose, quadrivalent, PF 1 completed [facility] 09/23/2023 14:28:19 Influenza, high-dose, quadrivalent, PF 0 completed [facility] 09/23/[facility]23 14:28:19 Influenza, high-dose, quadrivalent, PF 1 completed [facility] 09/[facility] 14:28:19 Influenza, adjuvanted, quadrivalent, PF 2 completed [facility] 09/23/[facility]23 14:28:19 COVID-19, mRNA, LNP-S, PF, 30 mcg/0.3 mL dose 1 completed Alena Eckart [facility] 09/23/2023 14:28:19 COVID-19 vaccine, vector-nr, rS-Ad26, PF, 0.5 mL 1 completed Alena Eckart [facility] 09/23/2023 14:28:19 COVID-19, mRNA, LNP-S, bivalent, PF, 30 mcg/0.3 mL dose 3 completed [facility] 09/[facility] 14:28:19 COVID-19, mRNA, LNP-S, bivalent, PF, 30 mcg/0.3 mL dose 2 completed [facility] 09/23/[facility]23 14:28:19 COVID-19, mRNA, LNP-S, PF, 50 mcg/0.5 mL 3 completed Alena Eckart null, [facility] 09/23/2023 14:28:19 Influenza, high-dose, trivalent, PF 7 completed [facility] 09/[facility] 14:28:19 Influenza, high-dose, trivalent, PF 8 completed [facility] 09/23/[facility]23 14:28:19 Influenza, high-dose, trivalent, PF 9 completed [facility] 09/23/[facility]23 14:28:19 Influenza, high-dose, trivalent, PF 6 completed [facility] 09/23/[facility]23 14:28:19 Influenza, split virus, trivalent, preservative 4 completed Alena Eckart [facility] 09/23/2023 14:28:19 Influenza, split virus, trivalent, preservative 3 completed Alena Eckart [facility] 09/23/2023 14:28:19 Influenza, split virus, trivalent, preservative 4 completed Alena Eckart [facility] 09/23/2023 14:28:19 Td (adult), 5 Lf tetanus toxoid, preservative free, adsorbed 6 completed Alena Eckart [facility] 09/23/2023 14:28:19 Influenza, split virus, quadrivalent, PF 5 completed [facility] 09/23/[facility]23 14:28:19 Influenza, adjuvanted, trivalent, PF 4 completed [facility] Eckart [facility] 09/01/2024 09:54:51 RSV, recombinant, protein subunit RSVpreF, adjuvant reconstituted, 0.5 mL, PF 4 completed [facility] 09/01/[facility]24 09:54:51 COVID-19, mRNA, LNP-S, PF, zack-sucrose, 30 mcg/0.3 mL 4 completed Alena Foote [place], [place] - [facility] 09/01/2024 09:54:51 COVID-19, mRNA, LNP-S, PF, zack-sucrose, 30 mcg/0.3 mL 5 completed Not Available [facility] 05/31/2025 10:03:32 Influenza, adjuvanted, trivalent, PF 5 completed Not Available [facility] 05/31/2025 10:03:32 Past Encounters Encounter ID Performer Location Encounter Start Date Encounter Closed Date Diagnosis/Indication Diagnosis SNOMED-CT Code Diagnosis ICD10 Code Diagnosis IMO Codes Diagnosis Note [id number] Pastor Rossi MD [facility] [address] [place] [address] 05/11/2025 14:20:33 05/11/2025 14:58:53 Essential hypertension 76299905 I10 bp not optimal but stable.on amlod [...] and monitor labs Chronic ki dney disease 930683289 N18.30 cr 1.6no prior levelsrece hck 12/25 with cr up to 2lowered lisinopril and stop hctzbp optimal at homeoff hctz, will also stop kcl08/28 : 1.7 Benign pro static hyperplasia without outflow obstruction 156630398 N40.[address] Ibrahim normal Hyperlipidemia 53521343 E78.5 on pravastati nldld 131started to take pravastati n at nightmildl y elevation TG but LDL improved down to 113 Obesity 670503825 E66.9 a1c 5.7diet and physical activity: 5.8 Preventive procedure 169 064662 Z29.9 colonoscpy long time ago and do not want to get anymoreflu : 2022, ovid: uptodatepn eumonia: long time ago. recommende dtdap: 2016RSV: 04/2024 discussed vaccinatio n with the patient and reviewed the vaccinatio n status Low back pain 041127334 M54.50 ongoing on and offno radicular pains presentdis cussed xrays to evaluateit s stable. Intermittent vertigo 103 719837 R42 161812 one episodelik katheryn related to viral syndrome.s ymptoms has resovled now Acute bact erial sinusitis 16690720 J01.90 B96.89 94242 onging since past 10 days.will give doxycyclin e.flonase nasal spray. Chronic ankle pain 23370 80943 9109 M25.571 G89.29 [id number] on and off for 6 weeks or month.not improving. ibuprofen helpsdoes seem to helpcompre sson sockswill get venous duplex and stephanie to further evaluate. has lower amplitude pulse on dorsalis pedis on right Prediabetes [id number] R7 3.03 [id number] a1x 5.8continu e to monitor Health Concerns Section Related Observation LastModified by Organization Detai ls LastModified Time None Recorded Concern Status LastModified by Organization Details LastModified Time None Recorded Payers Encounter Date Sequence Insurance Name Policy Number Policy [place] Covered Member ID [place] Member ID Guarantor Name 05/11/2025 1 [facility] (MEDICARE REPLACEMENT/A DVANTAGE - HMO) [id number] Kartik Reardon [id number] Kartik Graves Notes Date Note Type Note Provider Name and Address Organization Details Recorded Time 05/11/2025 text/html ROS as noted in the HPI Pt here for sick visit. Pt c/o sinus drainage-clear, cough x 10 days. Denies fever, chest pain, shortness of breath. Pt is currently taking dayquil, nyquil, and Sinex nasal spray. he reports some pain in the right ankle on and off. it goes from knee to ankle area. Pastor Rossi MD [address], [place], [address], [facility] 05/11/2025 18:19:06
--- OUTSIDE RECORDS SUMMARY | 2025-06-16 14:06 | XMS_ITS | Encounter Summary ---
Author Organization [facility] Address [address] [place] [address] Care Team Providers Care Mail Inserter Name Role Phone Unavailable Primary Care Provider Unavailabl e Encounter Details Date Type Department Care Team (Late st Contact Info) Description 11/26/2023 Lab Requisition [facility] Lab [address] [facility] [address] [facility] [place] [phone] All Truong MD [facility] [address] [place] [phone] Neoplasm of uncertain behavior of skin Social History Tobacco Use Types Packs/Day Years [...] Priority Date/Time Associated Diagnosis Comments DERMATOPATHOLOGY Routine 11/26/2023 3:33 AM CDT Neoplasm of uncertain behavior of skin documented in this encounter Results * DERMATOPATHOLOGY (11/26/2023 3:33 AM CDT) Case Report Dermatopathology Report Case: [id number] Authorizing Provider: All Truong MD Collected: 11/26/2023 03:33 AM Ordering Location: [facility] Physician [facility] - Received: 11/28/2023 07:54 AM DermPath Lab Pathologist: Bre Montero MD Specimen: Skin, right uppr arm 3:09 PM CDT DERMATOPATHOLOGY LABORATORY Final Diagnosis Specimen A. 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 The specimen consists of a shave biopsy measuring 7x5x2 mm. Jar 0. 4 3:09 PM CDT DERMATOPATHOLOGY LABORATORY Microscopic Description Specimen A. SKIN, right uppr arm: There is a dome-shaped portion of skin with psoriasiform epidermal hyperplasia, compact hyperkeratosis, and fibrosis of the papillary dermis associated with a superficial perivascular lymphohistiocytic infiltrate. There are nests of cytologically bland melanocytes within the dermis that mature with depth. 3:09 PM CDT DERMATOPATHOLOGY LABORATORY Disclaimer An external and internal positive and negative controls are appropriate for the histochemical, immunohistochemical and immunofluorescence stain(s) in this case (if any), except where stated explicitly. The performance characteristics of the stain(s) cited in this report were developed and its performance characteristic determined by the Dermatopathology Laboratory at [facility], directed by Dr. Elvira Rios. These tests need not be, and therefore are not, approved by the [place] Food and Drug Administration. The tests are used for clinical purposes. Billing Codes Specimen Charges Stain Charges 39469 1 4 3:09 PM CDT DERMATOPATHOLOGY LABORATORY Embedded Images 4 3:09 PM CDT DERMATOPATHOLOGY LABORATORY Pathology/Cytolo gy TISSUE SPECIMEN FROM SKIN / Unknown 11/26/2023 3:33 AM CDT 11/28/2023 7:54 AM CDT All Truong MD LAB - PATHOLOGY/CYTOLOGY LASHONE NATHAN Final Result DERMATOPATHOLOGY LABORATORY [facility] - Department of Dermatology [address], [address] [phone] documented in this encounter Visit Diagnoses Diagnosis Neoplasm of uncertain behavior of skin documented in this encounter
--- OUTSIDE RECORDS SUMMARY | 2025-06-16 14:06 | XMS_ITS | Continuity of Care Document ---
Author Organization [place] - [facility], [facility] Address [address] [facility] [address] [place] [address] Assessment Encounter Date Assessment Date Assessment LastModified [...] reduce health risks and promote healthy living. [email or web address] Not available 05/31/2025 15:54:29 Plan of Treatment Reminders Order Date Submit Date Provider Last Modified By Organization Details Last Modified Time Details Appointments Follow Up 15 2025 09:15A M Pastor Rossi MD Not available Not available Not available Lab None recorded. Referral None recorded. Procedures None recorded. Surgeries None recorded. Imaging US, duplex, arterial, lower extremity , complete 2024 [facility] (Cardiology & Em[facility]), [address] [facility] [address] [place] [address], [id number], 06/14/2025 04:02:55 Medication Orders Medrol (Migel) 4 mg tablets in a dose pack 2024 [facility][id number], [address] [facility], [place], [place], [id number], 05/31/2025 10:33:22 azithromy sandie 250 mg tablet 2024 [facility] #[id number], [address], [place], [place], [id number], 05/31/2025 10:33:23 albuterol sulfate HFA 90 mcg/actua tion aerosol inhaler 2024 [facility] #[id number], [address], [place], [place], [id number], 05/31/2025 10:33:22 Mucinex 1,200 mg tablet, extended release 2024 [facility] #[id number], [address], [place], [place], [id number], 06/14/2025 05:01:56 Patient TargetsNo targets recorded. Patient Instructions Encounter Date Encounter Id Patient Instructions Last Modified By Organization Details Last Modified Time 05/31/2025 [id number] Peripheral Arterial Disease (PAD): Care Instructions [email or web address] Not available 05/31/2025 10:33:15 (ZOILA) ankle brachial index* TATE Not available 06/07/2025 04:05:09 When You Want to Lose Weight: Care Instructions [email or web address] Not available 05/31/2025 10:33:15 advance care planning: care instructions [email or web address] Not available 05/31/2025 10:33:14 back care and preventing injuries: care instructions Not available 05/31/2025 10:33:15 getting back to normal after low back pain: care instructions [email or web address] Not available 05/31/2025 10:33:15 learning about relief for back pain [email or web address] Not available 05/31/2025 10:33:15 high cholesterol : care instructions [email or web address] Not available 05/31/2025 10:33:14 I spent a total of _35 minutes (excluding separately reportable procedure time ) in care of this patient. [email or web address] Not available 05/31/2025 10:30:20 Reason for Referral None Reported. Results Created Date Observation Date Name Description Value Unit Range Abnormal Flag Note LastModifiedBy Organization Detail LastModifiedTime 05/12/20 25 05/13/2025 CMP14 +EGFR glucose 99 mg/dL 70-99 normal Not Available [facility] ([facility]) [address] [place], [address], 05/13/2025 12:08:13 05/12/20 25 05/13/2025 CMP14 +EGFR BUN 14 mg/dL 8-27 normal Not Available [facility] ([facility]) [address] [place], [address], 05/13/2025 12:08:13 05/12/2005/13/2025 CMP14 +EGFR creatinine 1.47 mg/dL 0.76-1 .27 above high normal Not Available [facility] ([facility]) [address] [facility] [place], [address], 05/13/2025 12:08:13 05/12/20 25 05/13/2025 CMP14 +EGFR eGFR 48 mL/mi n/1.7 3 >59 below low normal Not Available [facility] ([facility]) [address] [place], [address], 05/13/2025 12:08:13 05/12/20 25 05/13/2025 CMP14 +EGFR BUN/creatini ne ratio 10 10-24 normal Not Available [facility] ([facility]) [address] [facility] [place], [address], 05/13/2025 12:08:13 05/12/20 25 05/13/2025 CMP14 +EGFR sodium 143 mmol/ L 134-14 4 normal Not Available [facility] ([facility]) [address] [facility] [place], [address], 05/13/2025 12:08:13 05/12/20 25 05/13/2025 CMP14 +EGFR potassium 4.0 mmol/ L 3.5-5. 2 normal Not Available [facility] ([facility]) [address] [facility], [place], [address], 05/13/2025 12:08:13 05/12/2005/13/2025 CMP14 +EGFR chloride 104 mmol/ L 96-106 normal Not Available [facility] ([facility]) [address] [facility], [place], [address], 05/13/2025 12:08:13 05/12/2005/13/2025 CMP14 +EGFR carbon dioxide, total 25 mmol/ L 20-29 normal Not Available [facility] ([facility]) [address] [facility], [place], [address], 05/13/2025 12:08:13 05/12/2005/13/2025 CMP14 +EGFR calcium 9.2 mg/dL 8.6-10 .2 normal Not Available [facility] ([facility]) [address] [facility], [place], [address], 05/13/2025 12:08:13 05/12/2005/13/2025 CMP14 +EGFR protein, total 7.0 g/dL 6.0-8. 5 normal Not Available [facility] ([facility]) [address] [facility], [place], [address], 05/13/2025 12:08:13 05/12/2005/13/2025 CMP14 +EGFR albumin 4.5 g/dL 3.8-4. 8 normal Not Available [facility] ([facility]) [address] [facility], [place], [address], 05/13/2025 12:08:13 05/12/2005/13/2025 CMP14 +EGFR globulin, total 2.5 g/dL 1.5-4. 5 Not Available [facility] ([facility]) [address] [facility], [place], [address], 05/13/2025 12:08:13 05/12/2005/13/2025 CMP14 +EGFR bilirubin, total 0.7 mg/dL 0.0-1. 2 normal Not Available [facility] ([facility]) [address] [facility], [place], [address], 05/13/2025 12:08:13 05/12/2005/13/2025 CMP14 +EGFR alkaline phosphatase 84 IU/L 47-123 normal Not Available [facility] ([facility]) [address] [facility], [place], [address], 05/13/2025 12:08:13 05/12/2005/13/2025 CMP14 +EGFR AST (SGOT) 19 IU/L 0-40 normal Not Available [facility] ([facility]) [address] [facility], [place], [address], 05/13/2025 12:08:13 05/12/2005/13/2025 CMP14 +EGFR ALT (SGPT) 18 IU/L 0-44 normal Not Available [facility] ([facility]) [address] [place], [address], 05/13/2025 12:08:13 05/12/2005/13/2025 CBC WITH DIFFE RENTI AL/PL ATELE T WBC 10.2 x10e3 /uL 3.4-10 .8 normal Not Available [facility] ([facility]) [address] [place], [address], 05/13/2025 12:08:14 05/12/2005/13/2025 CBC WITH DIFFE RENTI AL/PL ATELE T RBC 5.17 x10e6 /uL 4.14-5 .80 normal Not Available [facility] ([facility]) [address] [place], [address], 05/13/2025 12:08:14 05/12/20 25 05/13/2025 CBC WITH DIFFE RENTI AL/PL ATELE T hemoglobin 15.8 g/dL 13.0-1 7.7 normal Not Available [facility] ([facility]) [address] [facility], [place], [address], 05/13/2025 12:08:14 05/12/2005/13/2025 CBC WITH DIFFE RENTI AL/PL ATELE T hematocrit 47.4 % 37.5-5 1.0 normal Not Available [facility] ([facility]) [address] [facility], [place], [address], 05/13/2025 12:08:14 05/12/2005/13/2025 CBC WITH DIFFE RENTI AL/PL ATELE T MCV 92 fL 79-97 normal Not Available [facility] ([facility]) [address] [facility], [place], [address], 05/13/2025 12:08:14 05/12/2005/13/2025 CBC WITH DIFFE RENTI AL/PL ATELE T MCH 30.6 pg 26.6-3 3.0 normal Not Available [facility] ([facility]) [address] [facility], [place], [address], 05/13/2025 12:08:14 05/12/2005/13/2025 CBC WITH DIFFE RENTI AL/PL ATELE T MCHC 33.3 g/dL 31.5-3 5.7 normal Not Available [facility] ([facility]) [address] [place], [address], 05/13/2025 12:08:14 05/12/2005/13/2025 CBC WITH DIFFE RENTI AL/PL ATELE T RDW 13.1 % 11.6-1 5.4 Not Available [facility] ([facility]) [address] [facility], [place], [address], 05/13/2025 12:08:14 05/12/20 25 05/13/2025 CBC WITH DIFFE RENTI AL/PL ATELE T platelets 186 x10e3 /uL 150-45 0 normal Not Available [facility] ([facility]) [address] [facility], [place], [address], 05/13/2025 12:08:14 05/12/20 25 05/13/2025 CBC WITH DIFFE RENTI AL/PL ATELE T neutrophils 73 % not estab. normal Not Available [facility] ([facility]) [address] [facility], [place], [address], 05/13/2025 12:08:14 05/12/20 25 05/13/2025 CBC WITH DIFFE RENTI AL/PL ATELE T lymphs 20 % not estab. normal Not Available [facility] ([facility]) [address] [facility], [place], [address], 05/13/2025 12:08:14 05/12/20 25 05/13/2025 CBC WITH DIFFE RENTI AL/PL ATELE T monocytes 4 % not estab. normal Not Available [facility] ([facility]) [address] [facility], [place], [address], 05/13/2025 12:08:14 05/12/20 25 05/13/2025 CBC WITH DIFFE RENTI AL/PL ATELE T eos 2 % not estab. normal Not Available [facility] ([facility]) [address] [facility], [place], [address], 05/13/2025 12:08:14 05/12/20 25 05/13/2025 CBC WITH DIFFE RENTI AL/PL ATELE T basos 1 % not estab. normal Not Available [facility] ([facility]) [address] [facility], [place], [address], 05/13/2025 12:08:14 05/12/20 25 05/13/2025 CBC WITH DIFFE RENTI AL/PL ATELE T immature cells PROOF TECHNICIAN HELPER Not Available [facility] ([facility]) [address] [facility], [place], [address], 05/13/2025 12:08:14 05/12/20 25 05/13/2025 CBC WITH DIFFE RENTI AL/PL ATELE T neutrophils (absolute) 7.4 x10e3 /uL 1.4-7. 0 above high normal Not Available [facility] ([facility]) [address] [facility], [place], [address], 05/13/2025 12:08:14 05/12/20 25 05/13/2025 CBC WITH DIFFE RENTI AL/PL ATELE T lymphs (absolute) 2.0 x10e3 /uL 0.7-3. 1 normal Not Available [facility] ([facility]) [address] [place], [address], 05/13/2025 12:08:14 05/12/20 25 05/13/2025 CBC WITH DIFFE RENTI AL/PL ATELE T monocytes(ab solute) 0.4 x10e3 /uL 0.1-0. 9 normal Not Available [facility] ([facility]) [address] [facility], [place], [address], 05/13/2025 12:08:14 05/12/20 25 05/13/2025 CBC WITH DIFFE RENTI AL/PL ATELE T eos (absolute) 0.2 x10e3 /uL 0.0-0. 4 normal Not Available [facility] ([facility]) [address] [facility], [place], [address], 05/13/2025 12:08:14 05/12/20 25 05/13/2025 CBC WITH DIFFE RENTI AL/PL ATELE T baso (absolute) 0.1 x10e3 /uL 0.0-0. 2 normal Not Available [facility] ([facility]) [address] [place], [address], 05/13/2025 12:08:14 05/12/20 25 05/13/2025 CBC WITH DIFFE RENTI AL/PL ATELE T immature granulocytes 0 % not estab. Not Available [facility] ([facility]) [address] [facility], [place], [address], 05/13/2025 12:08:14 05/12/2005/13/2025 CBC WITH DIFFE RENTI AL/PL ATELE T immature grans (abs) 0.0 x10e3 /uL 0.0-0. 1 Not Available [facility] ([facility]) [address] [facility], [place], [address], 05/13/2025 12:08:14 05/12/2005/13/2025 CBC WITH DIFFE RENTI AL/PL ATELE T NRBC PROOF TECHNICIAN HELPER Not Available [facility] ([facility]) [address] [facility], [place], [address], 05/13/2025 12:08:14 05/12/2005/13/2025 CBC WITH DIFFE RENTI AL/PL ATELE T hematology comments: PROOF TECHNICIAN HELPER Not Available [facility] ([facility]) [address] [facility], [place], [address], 05/13/2025 12:08:14 05/12/2005/13/2025 RENAL PANEL (10) phosphorus 3.1 mg/dL 2.8-4. 1 normal Not Available [facility] ([facility]) [address] [facility], [place], [address], 05/13/2025 12:08:15 05/12/2005/13/2025 LIPID PANEL cholesterol, total 181 mg/dL 100-19 9 normal Not Available [facility] ([facility]) [address] [facility], [place], [address], 05/13/2025 12:08:15 05/12/2005/13/2025 LIPID PANEL triglyceride s 141 mg/dL 0-149 normal Not Available [facility] ([facility]) [address] [facility], [place], [address], 05/13/2025 12:08:15 05/12/20 25 05/13/2025 LIPID PANEL HDL cholesterol 42 mg/dL >39 normal Not Available [facility] ([facility]) [address] [place], [address], 05/13/2025 12:08:15 05/12/20 25 05/13/2025 LIPID PANEL VLDL cholesterol josiah 25 mg/dL 5-40 Not Available [facility] ([facility]) [address] [place], [address], 05/13/2025 12:08:15 05/12/20 25 05/13/2025 LIPID PANEL LDL chol calc ([facility]) 114 mg/dL 0-99 above high normal Not Available [facility] ([facility]) [address] [facility], [place], [address], 05/13/2025 12:08:15 05/12/2005/13/2025 LIPID PANEL LDL calc comment: PROOF TECHNICIAN HELPER Not Available [facility] ([facility]) [address] [place], [address], 05/13/2025 12:08:15 05/12/20 25 05/13/2025 ALBUM IN/CR EAT RATIO , RANDO M UR creatinine, urine 86.5 mg/dL not estab. normal Not Available [facility] ([facility]) [address] [place], [address], 05/13/2025 12:08:15 05/12/20 25 05/13/2025 ALBUM IN/CR EAT RATIO , RANDO M UR albumin, urine 40.0 ug/mL not estab. Not Available [facility] ([facility]) [address] [place], [address], 05/13/2025 12:08:15 05/12/20 25 05/13/2025 ALBUM IN/CR EAT RATIO , RANDO M UR alb/creat ratio 46 mg/g_ creat 0-29 above high normal Kendra l: 0 - 29 Moder ately incre ased: 30 - 300 Sever katheryn incre ased: >300 Not Available [facility] ([facility]) [address] [facility], [place], [address], 05/13/2025 12:08:15 05/12/20 25 05/13/2025 HEMOG LOBIN A1C hemoglobin A1C 5.6 % 4.8-5. 6 normal Predi abete s: 5.7 - 6.4 Diabe ivette: >6.4 Glyce anel contr ol for adult s with diabe ivette: <7.0 Not Available [facility] ([facility]) [address] [facility], [place], [address], 05/13/2025 12:08:16 05/12/2005/13/2025 TSH TSH 1.590 uIU/m L 0.450- 4.500 normal Not Available [facility] ([facility]) [address] [facility], [place], [address], 05/13/2025 12:08:16 05/12/20 25 05/13/2025 PROST ATE-S [...] t be inter prete d as absol kalispel evide nce of the prese nce or absen ce of [facility] dise se. Not Available [facility] ([facility]) [address] [facility], [place], [address], 05/13/2025 12:08:17 05/12/20 25 05/13/2025 URIC ACID uric acid 4.7 mg/dL 3.8-8. 4 normal Thera alejandra queen t for gout patie nts: <6.0 Not Available [facility] ([facility]) [address] [facility], [place], [address], 05/13/2025 12:08:17 05/12/2005/13/2025 PTH, INTAC T PTH, intact 45 pg/mL 15-65 normal Not Available [facility] ([facility]) [address] [facility], [place], [address], 05/13/2025 12:08:18 Result Notes None recorded. Problems Name Problem SNOMED Code Status Onset Date Resolution Date Notes Provider Name and Address Organization Details Recorded Time Essential hypertensio n 87030932 Active 2023 Pastor Rossi MD [address] [facility] [address], [place], [address], [facility] 18:18:17 Benign prostatic hyperplasia without outflow obstruction 132719807 Active 2023 Pastor Rossi MD [address] [facility] [address], [place], [address], [facility] 18:18:17 Hyperlipide enoc 97312362 Active 2023 Pastor Rossi MD [address] [facility] [address], [place], [address], [facility] 18:18:17 Obesity 917266257 Active 2023 Pastor Rossi MD [address] [facility] [address], [place], [address], [facility] 18:18:17 Chronic kidney disease 290198010 Active 2023 Pastor Rossi MD [address] [facility] [address], [place], [address], [facility] 5 18:18:17 Low back pain 306706964 Active 2023 Pastor Rossi MD [address] [address], [place], [address], [facility] 5 18:18:17 Pain of left elbow joint 8688793561936 9104 Active 2024 Pastor Rossi MD [address] [facility] [facility] [address], [place], [address], [facility] 5 10:15:47 Intermitten t vertigo 217755424 Active 2024 Pastor Rossi MD [address] [facility] [address] [address], [place], [address], [facility] 5 10:43:23 Acute bacterial sinusitis 49454202 Active 2024 Pastor Rossi MD [address] [facility] [address] [address], [place], [address], [facility] 14:45:00 Chronic ankle pain 7938217163635 9 Active 2024 Pastor Rossi MD [address] [facility] [address] [address], [place], [address], [facility] 14:48:28 Prediabetes 788318824 Active 2024 Pastor Rossi MD [address] [facility] [address] [address], [place], [address], [facility] 5 14:52:35 Acute bacterial bronchitis 615134824 Active 2024 Pastor Rossi MD [address] [facility] [address] [address], [place], [address], [facility] 5 10:20:55 Peripheral vascular disease 436490253 Active 2024 Pastor Rossi MD [address] [facility] [address], [place], [address], [facility] 5 10:32:01 Problem Notes None recorded. Procedures Surgical History Date Name Laterality Status Provider Name and Address Organization Details Recorded Time 5 excision of skin cyst completed Pastor Rossi MD [address] [facility] [address], [place], [address], [facility] 09/01/2024 10:09:38 0 hernia repair completed Pastor Rossi MD [address] [facility] [address], [place], [address], [facility] 08/26/2023 11:16:06 excision of basal cell carcinoma completed Pastor Rossi MD [address] [facility] [address], [place], [address], [facility] 08/26/2023 11:16:56 Imaging Results None recorded. Procedure Notes None recorded. Medical Equipment None Reported. Allergies Allergen ID Allergen Name Allergen Category Reaction Reaction Severity Criticality Documentation Date Start Date Code Code System Note Provider Name and Address Organization Details Recorded Time 1441 Product containin g penicilli n (product) medicatio n vomiting Not available high 08/26/2023 69151 8001 SNOMED Alena Qamar [facility] 4 10:41:33 Medications Name Sig Start Date [...] propionate 50 mcg/actuati on nasal spray,suspe nsion [place] 1 spray twice a day by intranasa [...] Not Available Not Available Vitals Date Recorded Oxygen saturation Oxygen saturation in Arterial blood by Pulse oximetry Provider Name and Address Organization Details Last Updated DateTime 05/31/2025 91 % 91 % Pastor Rossi MD [address] [facility] [address], [place], [address], [place] - [facility] 05/31/2025 10:22:37 Date Recorded Body height Body temperature Body mass index (BMI) Body weight Heart rate Respiratory rate Systolic And Diastolic Provider Name and Address Organization Details Last Updated DateTime 5 175.26 cm 97.3 [degF] 29.5 kg/m2 99143.4 7 g 75 /min 20 /min 130/70 mm[Hg] Alena [facility] 5 10:11:49 Social History None recorded. Functional Status [...] toxoid, unspecified formulation 2 completed Alena Eckart [facility] 08/26/2023 10:43:49 influenza, unspecified formulation 3 completed Alena Eckart [facility] 08/26/2023 10:44:14 Influenza, high-dose, quadrivalent, PF 3 completed Alena Eckart [facility] 09/23/2023 14:28:19 Influenza, high-dose, quadrivalent, PF 1 completed [facility] Eckart [facility] 09/23/2023 14:28:19 Influenza, high-dose, quadrivalent, PF 0 completed Alena Eckart [facility] 09/23/2023 14:28:19 Influenza, high-dose, quadrivalent, PF 1 completed Alena Eckart [facility] 09/23/2023 14:28:19 Influenza, adjuvanted, quadrivalent, PF 2 completed [facility] Eckart [facility] 09/23/2023 14:28:19 COVID-19, mRNA, LNP-S, PF, 30 mcg/0.3 mL dose 1 completed [facility] Eckart [facility] 09/23/2023 14:28:19 COVID-19 vaccine, vector-nr, rS-Ad26, PF, 0.5 mL 1 [facility] 14:28:19 COVID-19, mRNA, LNP-S, bivalent, PF, 30 mcg/0.3 mL dose 3 completed [facility]23 14:28:19 COVID-19, mRNA, LNP-S, bivalent, PF, 30 mcg/0.3 mL dose 2 completed [facility] 09/23/[facility]23 14:28:19 COVID-19, mRNA, LNP-S, PF, 50 mcg/0.5 mL 3 completed Alena Eckart [facility] 09/23/2023 14:28:19 Influenza, high-dose, trivalent, PF 7 completed Alena Eckart [facility] 09/23/2023 14:28:19 Influenza, high-dose, trivalent, PF 8 completed [facility] 14:28:19 Influenza, high-dose, trivalent, PF 9 completed Alena Eckart [facility] 09/23/2023 14:28:19 Influenza, high-dose, trivalent, PF 6 completed Alena Eckart [facility] 09/23/2023 14:28:19 Influenza, split virus, trivalent, preservative 4 completed [facility] 14:28:19 Influenza, split virus, trivalent, preservative 3 completed [facility] 14:28:19 Influenza, split virus, trivalent, preservative 4 completed [facility] Eckart [facility] 09/23/2023 14:28:19 Td (adult), 5 Lf tetanus toxoid, preservative free, adsorbed 6 [facility] 14:28:19 Influenza, split virus, quadrivalent, PF [facility] 14:28:19 Influenza, adjuvanted, trivalent, PF 4 completed [facility] 09/01/2024 09:54:51 RSV, recombinant, protein subunit RSVpreF, adjuvant reconstituted, 0.5 mL, PF 4 completed [facility] 09/01/2024 09:54:51 COVID-19, mRNA, LNP-S, PF, zack-sucrose, 30 mcg/0.3 mL 4 completed [facility] 09/01/2024 09:54:51 COVID-19, mRNA, LNP-S, PF, zack-sucrose, 30 mcg/0.3 mL 5 completed Not Available [facility] 05/31/2025 10:03:32 Influenza, adjuvanted, trivalent, PF 5 completed Not Available [facility] 05/31/2025 10:03:32 Past Encounters Encounter ID Performer Location Encounter Start Date Encounter Closed Date Diagnosis/Indication Diagnosis SNOMED-CT Code Diagnosis ICD10 Code Diagnosis IMO Codes Diagnosis Note [id number] Pastor Rossi MD [facility] [address] [facility] [address] [place] [address] 05/11/2025 14:20:33 05/11/2025 14:58:53 Essential hypertension 48339639 I10 bp not optimal but stable.on amlod [...] and monitor labs Chronic ki dney disease 641489250 N18.30 cr 1.6no prior levelsrece hck 12/25 with cr up to 2lowered lisinopril and stop hctzbp optimal at homeoff hctz, will also stop kcl08/28 : 1.7 Benign pro static hyperplasia without outflow obstruction 475640155 N40.[address] Ibrahim normal Hyperlipidemia 99469665 E78.5 on pravastati nldld 131started to take pravastati n at nightmildl y elevation TG but LDL improved down to 113 Obesity 791061185 E66.9 a1c 5.7diet and physical activity: 5.8 Preventive procedure 169 600499 Z29.9 colonoscpy long time ago and do not want to get anymoreflu : ovid: uptodatepn eumonia: long time ago. recommende dtdap: 2016RSV: 04/2024 discussed vaccinatio n with the patient and reviewed the vaccinatio n status Low back pain 724360244 M54.50 ongoing on and offno radicular pains presentdis cussed xrays to evaluateit s stable. Intermittent vertigo 103 [id number] R42 [id number] one episodelik katheryn related to viral syndrome.s ymptoms has resovled now Acute bact erial sinusitis [id number] J01.90 B96.89 99789 onging since past 10 days.will give doxycyclin e.flonase nasal spray. Chronic ankle pain 89314 66738 9109 M25.571 G89.29 [id number] on and off for 6 weeks or month.not improving. ibuprofen helpsdoes seem to helpcompre sson sockswill get venous duplex and zoila to further evaluate. has lower amplitude pulse on dorsalis pedis on right Prediabetes [id number] R7 3.03 029048 a1x 5.8continu e to monitor [id number] Pastor Rossi MD [facility] [address] [facility] [address] [place] [address] 05/31/2025 10:02:26 05/31/2025 10:36:43 General examination of patient [id number] Z00.01 [id number] colonoscpy long time ago and do not want to get anymoreflu : 2023, 2024covid: uptodatepn eumonia: long time ago. recommende dtdap: 2016RSV: 04/2024 discussed vaccinatio n with the patient and reviewed the vaccinatio n status Acute bact erial bronchitis [id number] J20.8 B96.89 [id number] ongoing with carlito.wi ll give medrol dosee migel, azithromyc in.albuter ol inahler prnmucinex add Chronic ankle pain 79394 36029 9109 M25.571 G89.29 [id number] on and off for 6 weeks or month.not improving. ibuprofen helpsdoes seem to helpcompre sson socksxr ankle 05/28: no acute findings (obtained at [facility])w ill get venous duplex and zoila to further evaluate. has lower amplitude pulse on dorsalis pedis on right: which did not get covered and hence not done yet Essential hypertension 30068361 I10 bp not optimal but stable.on amlod [...] and monitor labs Chronic ki dney disease 528344643 N18.30 cr 1.6no prior levelsrece hck 12/25 with cr up to 2lowered lisinopril and stop hctzbp optimal at homeoff hctz, will also stop kcl08/28 : 1.: 1.4 Benign pro static hyperplasia without outflow obstruction [id number] N40.[address] Ibrahim normal 05/28 Hyperlipidemia 55828873 E78.5 on pravastati nldld 131started to take pravastati n at nightmildl y elevation TG but LDL improved down to 113 Obesity 579861999 E66.9 a1c 5.7diet and physical activity: 5.8 Preventive procedure 169 388026 Z29.9 colonoscpy long time ago and do not want to get anymoreflu : 2022, ovid: uptodatepn eumonia: long time ago. recommende dtdap: 2016RSV: 04/2024 discussed vaccinatio n with the patient and reviewed the vaccinatio n status Low back pain 229682084 M54.50 ongoing on and offno radicular pains presentdis cussed xrays to evaluateit s stable. Intermittent vertigo 103 165508 R42 024182 one episodelik katheryn related to viral syndrome.s ymptoms has resovled now Prediabetes 824916254 R7 3.03 023266 a1x 5.8continu e to monitorrep eat 5.4 normal 05/28 Peripheral vascular disease 809799266 I73.9 138712 will order us duplex Health Concerns Section Related Observation LastModified by Organization Detai ls LastModified Time None Recorded Concern Status LastModified by Organization Details LastModified Time None Recorded Payers Encounter Date Sequence Insurance Name Policy Number Policy [place] Covered Member ID [place] Member ID Guarantor Name 05/31/2025 1 [facility] (MEDICARE REPLACEMENT/A DVANTAGE - [id number]) [id number] Kartik Reardon [id number] Kartik Graves Notes Date Note Type Note Provider Name and Address Organization Details Recorded Time 05/31/2025 text/html Medicare Annual Wellness VisitReported by [...] Good appetite. Pastor Rossi MD [address] [facility] [address] [place], [address], [facility] 05/31/2025 15:55:25
== END 2025-06-16 13:28 | disposition home or self-care (01) ==
PROVIDERS: PCP Internal Medicine; Visit Provider Internal Medicine
DX: M25.571 Pain in right ankle and joints of right foot (principal); G89.29 Other chronic pain; I73.9 Peripheral vascular disease, unspecified
CPT/HCPCS: 93922